=== PATIENT | male | born 1955 | race Caucasian/White ===

== ENCOUNTER → 2017-08-01 09:03 | Outpatient (CLI) | payer OTHER, SELFPAY ==
[2017-08-01 10:44] LABS: Anion Gap 10 (5-15); BUN 17 mg/dL (7-18); BUN/Creat Ratio 18.1 RATIO (10-20); Calcium,Total 9.6 mg/dL (8.5-10.1); Chloride 99 mmol/L (98-107); Cholesterol 224 mg/dL (200); Creatinine, Serum 0.94 mg/dL (0.70-1.30); EST Glomerular Filtration Rate 86 mL/min (>60); Est Glom Filt Rate - Afr Amer 104 mL/min (>60); Glucose 124 mg/dL (74-106); High Density Lipoprotein 38 mg/dL; PSA,Total - Annual Screen 0.18 ng/mL (0.00-4.00); Potassium 4.4 mmol/L (3.5-5.1); Sodium Level 137 mmol/L (136-145); Triglycerides 193 mg/dL; Very Low Density Lipoprotein 39 mg/dL (5-40)
== END ==
PROVIDERS: Family Provider Family Medicine; PCP Family Medicine; Visit Provider Family Medicine
DX: I10 Essential (primary) hypertension (principal); R73.01 Impaired fasting glucose; E78.5 Hyperlipidemia, unspecified; Z12.5 Encounter for screening for malignant neoplasm of prostate
CPT/HCPCS: 36415; 80048; 80061; 83036; 84153; G0103

== ENCOUNTER → 2018-01-30 09:29 | Outpatient (CLI) | payer OTHER, SELFPAY ==
[2018-01-30 12:36] LABS: Cholesterol 203 mg/dL (200); Glucose 109 mg/dL (74-106); High Density Lipoprotein 34 mg/dL; Triglycerides 238 mg/dL; Very Low Density Lipoprotein 48 mg/dL (5-40)
[2018-01-30 12:38] LABS: Hemoglobin A1c 5.8 % (4.2-6.3)
== END ==
PROVIDERS: Family Provider Family Medicine; PCP Family Medicine; Visit Provider Family Medicine
DX: E78.5 Hyperlipidemia, unspecified (principal); R73.01 Impaired fasting glucose
CPT/HCPCS: 36415; 80061; 82947; 83036

== ENCOUNTER → 2019-03-13 | Outpatient (CLI) | payer MEDICARE, OTHER, SELFPAY ==
[2019-03-13 16:02] LABS: Absolute Lymphocyte Count 1.56 X10^3/uL (0.83-4.51); Basophil# 0.06 X10^3/uL; Basophil% 0.7 % (0-1); Eosinophil# 0.09 X10^3/uL; Eosinophils% 1.1 % (0-5); Hematocrit 47.6 % (40-54); Hemoglobin 15.6 g/dL (13.0-16.5); Lymphocyte # 1.56 X10^3/ul (4.0); Lymphocyte % 18.8 % (19-41); Mean Corp Hgb Conc 32.8 g/dL (32-36); Mean Corpuscular Hgb 30.9 pg (27.0-32.0); Mean Corpuscular Volume 94.3 fL (80-94); Mean Platelet Vol. 11.2 fl (6.2-12.0); Monocyte% 7.2 % (0-10); NRBC Flagged by Analyzer 0 % (0-5); Neutrophil # 5.98 X10^3/uL (2.7-7.7); Neutrophil % 71.8 % (47-70); Platelet Count 218 K/mm3 (150-450); RBC Distribution Width SD 44.7 fl (35.1-43.9); Red Blood Count 5.05 M/mm3 (4.6-6.2); White Blood Count 8.3 K/mm3 (4.4-11.0)
[2019-03-13 16:13] LABS: Albumin, Serum 4.1 g/dL (3.2-5.0); BUN 23 mg/dL (7-18); BUN/Creat Ratio 23.6 RATIO (10-20); Creatinine, Serum 0.97 mg/dL (0.70-1.30); EST Glomerular Filtration Rate 82 mL/min (>60); Est Glom Filt Rate - Afr Amer 99 mL/min (>60); Glucose 107 mg/dL (74-106)
[2019-03-13 16:14] LABS: ALB/GLOB Ratio 1.1 RATIO (0.9-2.4); AST(SGOT) 52 U/L (15-37); Alanine Aminotransfer ALT/SGPT 59 U/L (16-61); Alkaline Phosphatase 110 U/L (45-117); Anion Gap 8 (5-15); Calcium,Total 9.4 mg/dL (8.5-10.1); Chloride 101 mmol/L (98-107); Cholesterol 215 mg/dL (200); Globulin 3.9 g/dL (2.2-4.2); High Density Lipoprotein 39 mg/dL; Potassium 4.4 mmol/L (3.5-5.1); Sodium Level 139 mmol/L (136-145); Thyroid Stim Hormone (TSH) 2.97 uIU/mL (0.358-3.74); Triglycerides 174 mg/dL; Very Low Density Lipoprotein 35 mg/dL (5-40)
== END | disposition home or self-care (01) ==
LOC: MFPLAB 11:22
PROVIDERS: Family Provider Family Medicine; PCP Family Medicine; Referring Provider Family Medicine; Visit Provider Family Medicine
DX: I10 Essential (primary) hypertension (principal); R73.01 Impaired fasting glucose; I48.91 Unspecified atrial fibrillation
CPT/HCPCS: 36415; 80053; 80061; 84443; 85025

== ENCOUNTER → 2019-04-30 | Outpatient (CLI) | payer MEDICARE, OTHER, SELFPAY ==
--- NOTE | 2019-04-30 13:55 | ECHOCS_ITS ---
Version 2 Reason For Study: Afib Left Ventricle Normal LV size. Moderate concentric left ventricular hypertrophy. Left ventricular systolic function is normal. The estimated ejection fraction is 60 %. Unable to assess diastolic dysfunction due to arrhythmia. No regional wall motion abnormalities noted. Right Ventricle Normal RV size. Normal systolic function. Atria The left atrium is mildly enlarged. Normal right atrium. Mitral Valve Mitral valve not well visualized. Tricuspid Valve Normal tricuspid valve. Aortic Valve The aortic valve is not well visualized. Peak aortic valve gradient 64 mmHg. Mean aortic valve gradient 35.5 mmHg. Calculated aortic valve area (continuity equation) is 0.96 cm2. Moderate aortic stenosis. Pulmonic Valve The pulmonic valve is not well visualized. Great Vessels Normal aortic root. The pulmonary artery is normal size. Normal inferior vena cava. Pericardium/Pleural No pericardial effusion. MMode/2D Measurements & Calculations LVIDd: 4.4 cm IVSd: 1.7 cm LVOT diam: 2.2 cm LVIDs: 2.8 cm LVPWd: 1.5 cm LVOT area: 3.8 cm2 FS: 36.6 % Ao root diam: 3.3 cm LAV(MOD-bp): 66.4 ml LVAd ap4: 30.0 cm2 LAV(MOD-bp) Indexed: 25.8 ml/m2 EDV(MOD-sp4): 98.6 ml LAV(MOD-sp2): 58.7 ml EDV(sp4-el): 103.2 ml LAV(MOD-sp4): 72.8 ml LVAs ap4: 19.1 cm2 ESV(MOD-sp4): 44.2 ml ESV(sp4-el): 45.8 ml EF(MOD-sp4): 55.1 % EF(sp4-el): 55.6 % SV(MOD-sp4): 54.3 ml SV(sp4-el): 57.4 ml Aortic Valve Planimetry: 0.96 cm2 LA A4 area: 23.6 cm2 LA dimension(2D): 6.5 cm RA A4 area: 16.4 cm2 Doppler Measurements & Calculations MV E max deidra: 79.9 cm/sec Ao V2 max: 396.8 cm/sec LV V1 max: 88.5 cm/sec Ao max P.4 mmHg LV V1 max P.1 mmHg Ao V2 mean: 282.0 cm/sec LV V1 mean P.9 mmHg Ao mean P.5 mmHg LV V1 mean: 66.6 cm/sec Ao V2 VTI: 65.9 cm LV V1 VTI: 17.8 cm JOSH(I,D): 1.0 cm2 JOSH(V,D): 0.84 cm2 SV(LVOT): 67.1 ml PA V2 max: 175.5 cm/sec PA V2 mean: 111.0 cm/sec PA V2 VTI: 27.3 cm Interpretation Summary Normal LV size. Left ventricular systolic function is normal. The estimated ejection fraction is 60 %. Moderate concentric left ventricular hypertrophy. Unable to assess diastolic dysfunction due to arrhythmia. Moderate aortic stenosis. Mean aortic valve gradient 35.5 mmHg. Contrast injection was performed. Ordering Physician: James Hernandez Referring Physician: James Hernandez Performed By: Katlin Forrest RDCS, RVT
== END | disposition home or self-care (01) ==
LOC: CVS 13:54
PROVIDERS: Family Provider Family Medicine; PCP Family Medicine; Referring Provider Family Medicine; Visit Provider Family Medicine
DX: I48.20 Chronic atrial fibrillation, unspecified (principal)
CPT/HCPCS: 93306; Q9957; A4216; C8929

== ENCOUNTER → 2019-05-16 15:01 | Outpatient (CLI) | payer MEDICARE, OTHER, SELFPAY ==
[2019-05-16 14:11] VITALS: BMI 42.3
[2019-05-16 16:41] LABS: Anion Gap 6 (5-15); BUN 19 mg/dL (7-18); Calcium,Total 9.5 mg/dL (8.5-10.1); Chloride 100 mmol/L (98-107); Creatinine, Serum 0.95 mg/dL (0.70-1.30); EST Glomerular Filtration Rate 85 mL/min (>60); Est Glom Filt Rate - Afr Amer 102 mL/min (>60); Glucose 97 mg/dL (74-106); Sodium Level 137 mmol/L (136-145)
== END ==
PROVIDERS: Family Provider Family Medicine; PCP Family Medicine; Referring Provider Internal Medicine Cardiovascular Disease; Visit Provider Internal Medicine Cardiovascular Disease
DX: I48.91 Unspecified atrial fibrillation (principal)
CPT/HCPCS: 36415; 80048

== ENCOUNTER 2019-05-21 11:29 | Day surgery (SDC) | payer MEDICARE, OTHER, SELFPAY ==
[2019-05-16 14:11] VITALS: BMI 42.3
[2019-05-18 11:09] VITALS: BMI 42.3
--- NOTE | 2019-05-21 13:03 | PCM.OP.PRO ---
Problem List (1) Essential (primary) hypertension Status: Chronic (2) History of hyperlipidemia Status: Chronic (3) New onset atrial fibrillation Status: Chronic (4) Nonrheumatic aortic (valve) stenosis Status: Chronic Procedure Report Date of Procedure: 05/21/19 - Conscious sedation CONSCIOUS SEDATION REPORT BRIEF HISTORY OF PRESENT ILLNESS: The patient is a 64-year-old male who presented to [facility] for an elective outpatient cardioversion due to underlying atrial fibrillation. The patient reports no PO intake since midnight. The patient does have a history of obstructive sleep apnea. The patient reports no history of smoking and COPD. The patient denies any recent constitutional symptoms such as fevers, chills, nausea or vomiting. The patient denies previous anesthetic complications. Patient's last known ejection fraction was 60% and patient is anticoagulated with Eliquis therapy. PHYSICAL EXAMINATION: VITAL SIGNS: Reviewed and were acceptable. GENERAL: The patient is a male, in no apparent distress, speaking in full sentences. HEENT: Normocephalic, atraumatic. Mucous membranes are moist and pink. Good mouth opening noted. Trachea is midline. Good neck mobility. MP IV CHEST: S1, S2 irregularly irregular. No rubs or gallops were noted. Grade 3 out of 6 systolic ejection murmur at the right sternal border LUNGS: Clear to auscultation bilaterally without appreciable wheezes, rales or rhonchi. ABDOMEN: Soft, nontender, nondistended. Positive bowel sounds. EXTREMITIES: There is no clubbing, cyanosis or edema. ASA Class: II DESCRIPTION OF PROCEDURE: After confirmation of informed consent, the patient's anesthesia plan was reviewed in detail. Propofol was chosen. Risks and benefits were reviewed and the patient agreed to proceed. At 12:42 PM, the patient was given 40 mg of propofol. The patient required a total of 100 mg of propofol throughout the procedure to achieve appropriate sedation. The patient achieved an appropriate level of sedation and received 3 attempt s synchronized cardioversion, at 200, 20o and [address] Srinivasan at the bedside. This was unsuccessful in achieving normal sinus rhythm. The patient was monitored until 12:55 PM, at which time the patient reached their baseline mental status and function. The patient tolerated the procedure well. COMPLICATIONS: None ESTIMATED BLOOD LOSS: None RECOMMENDATIONS: Okay to recover in usual fashion. Code Visit 9xxxx: Other Procedure See Report - [id number] -13 minutes
--- NOTE | 2019-05-21 13:14 | PRO.PCM_ITS ---
Procedure Report Date of Procedure: 05/21/19 DC cardioversion. 64-year-old man with a history of chronic persistent atrial fibrillation and aortic stenosis. Patient has been on anticoagulation for minimum of 3 weeks. Patient was brought in for elective DC cardioversion. Patient was seen by Dr. Chaves of the critical care division. Informed consent was obtained. Anterior- posterior pads were applied. 100 mg of intravenous propofol was then administered and the patient was initially cardioverted with 200 J of biphasic energy with brief reversal to sinus rhythm. Patient reverted back into atrial fibrillation and required another 200 J of biphasic DC cardioversion energy with no response. The patient was then cardioverted with 300 J of biphasic energy which was still unsuccessful in converting patient to sinus rhythm. Conclusion: Unsuccessful DC cardioversion to sinus rhythm. We will recommend amiodarone loading with 200 mg daily for 2 to 3 weeks and repeat DC cardioversion. Continue anticoagulation.
== END 2019-05-21 13:45 | disposition home or self-care (01) ==
LOC: CLSP 11:29
PROVIDERS: Family Provider Family Medicine; PCP Family Medicine; Referring Provider Internal Medicine Cardiovascular Disease; Visit Provider Internal Medicine Cardiovascular Disease
DX: I48.19 Other persistent atrial fibrillation (principal); G47.33 Obstructive sleep apnea (adult) (pediatric); I10 Essential (primary) hypertension; I35.0 Nonrheumatic aortic (valve) stenosis; J45.909 Unspecified asthma, uncomplicated; F41.9 Anxiety disorder, unspecified; Z79.01 Long term (current) use of anticoagulants; Z86.39 Personal history of other endocrine, nutritional and metabolic disease
CPT/HCPCS: 92960; 93005; J7040

== ENCOUNTER → 2019-06-04 11:49 | Outpatient (CLI) | payer MEDICARE, OTHER, SELFPAY ==
[2019-05-18 11:09] VITALS: BMI 42.3
[2019-06-04 12:48] LABS: Anion Gap 5 (5-15); BUN 17 mg/dL (7-18); Calcium,Total 9.2 mg/dL (8.5-10.1); Chloride 100 mmol/L (98-107); EST Glomerular Filtration Rate 80 mL/min (>60); Est Glom Filt Rate - Afr Amer 96 mL/min (>60); Glucose 107 mg/dL (74-106); Potassium 4.3 mmol/L (3.5-5.1); Sodium Level 139 mmol/L (136-145)
== END ==
PROVIDERS: Family Provider Family Medicine; PCP Family Medicine; Referring Provider Internal Medicine Cardiovascular Disease; Visit Provider Internal Medicine Cardiovascular Disease
DX: I48.91 Unspecified atrial fibrillation (principal)
CPT/HCPCS: 36415; 80048

== ENCOUNTER 2019-06-25 10:01 | Day surgery (SDC) | payer MEDICARE, OTHER, SELFPAY ==
[2019-05-18 11:09] VITALS: BMI 42.3
[2019-06-22 09:44] VITALS: BMI 42.3
--- NOTE | 2019-06-25 11:18 | CARDIOVERS ---
Cardioversion Cardioversion: 64-year-old man with a history of chronic persistent atrial fibrillation who was brought in for a DC cardioversion. After informed consent was obtained the patient was seen by Dr. Rutherford of the critical care division. Anterior-posterior pads were applied. EKG confirmed that the patient was in atrial fibrillation. 60 mg of intravenous propofol was then administered and 200 J of synchronized DC biphasic cardioversion energy were applied with prompt reversal to sinus rhythm. The patient tolerated the procedure well. Conclusion: Successful DC cardioversion to sinus rhythm. Continue current anticoagulation Continue antiarrhythmic.
--- NOTE | 2019-06-25 11:27 | PRO.PCM_ITS ---
Procedure Report Date of Procedure: 06/25/19 CONSCIOUS SEDATION REPORT DATE OF SERVICE: June 25, 2019 BRIEF HISTORY OF PRESENT ILLNESS: The patient is a 64-year-old male who presented to [facility] for an elective outpatient cardioversion due to underlying atrial fibrillation. The patient did undergo a previous cardioversion in May 2019, during which time, 100 mg of propofol was utilized to achieve an appropriate level of sedation. The patient is currently anticoagulated on Eliquis. His last known ejection fraction was approximately 60%. He does report a known history of obstructive sleep apnea, for which he utilizes nocturnal Pap therapy. He also reports a history of mild intermittent asthma. He denies any previous anesthetic complications. PHYSICAL EXAMINATION: VITAL SIGNS: Reviewed and were acceptable. GENERAL: The patient is an obese male, in no apparent distress, speaking in full sentences. HEENT: Normocephalic, atraumatic. Mucous membranes are moist and pink. Good mouth opening noted. Trachea is midline. Good neck mobility. CHEST: S1, S2 irregularly irregular. No murmurs, rubs or gallops were noted. LUNGS: Clear to auscultation bilaterally without appreciable wheezes, rales or rhonchi. ABDOMEN: Soft, nontender, nondistended. Positive bowel sounds. EXTREMITIES: There is no clubbing, cyanosis or edema. ASA Class: II DESCRIPTION OF PROCEDURE: After confirmation of informed consent, the patient's anesthesia plan was reviewed in detail. Propofol was chosen. Risks and benefits were reviewed and the patient agreed to proceed. At 1111, the patient was given 60 mg of propofol. The patient achieved an appropriate level of sedation and was given a 200 joule synchronized cardioversion by Dr. Srinivasan at the bedside. This was successful in achieving normal sinus rhythm. The patient was monitored until 1121, at which time he reached his baseline mental status and function. The patient tolerated the procedure well. COMPLICATIONS: None ESTIMATED BLOOD LOSS: None RECOMMENDATIONS: Okay to recover in usual fashion. Code Visit 9xxxx: Other Procedure See Report - [id number]
== END 2019-06-25 12:13 | disposition home or self-care (01) ==
PROVIDERS: Family Provider Family Medicine; PCP Family Medicine; Referring Provider Internal Medicine Cardiovascular Disease; Visit Provider Internal Medicine Cardiovascular Disease
DX: I48.91 Unspecified atrial fibrillation (principal); I35.0 Nonrheumatic aortic (valve) stenosis; G47.33 Obstructive sleep apnea (adult) (pediatric); J45.20 Mild intermittent asthma, uncomplicated; I10 Essential (primary) hypertension; E78.5 Hyperlipidemia, unspecified; E66.9 Obesity, unspecified; F41.9 Anxiety disorder, unspecified; Z79.01 Long term (current) use of anticoagulants; Z68.41 Body mass index [BMI] 40.0-44.9, adult
CPT/HCPCS: 92960; 93005; J7040

== ENCOUNTER → 2020-01-17 10:19 | Outpatient (CLI) | payer MEDICARE, OTHER, SELFPAY ==
[2019-11-21 09:31] VITALS: BMI 38.5
[2020-01-17 12:30] LABS: Absolute Lymphocyte Count 1.47 X10^3/uL (0.83-4.51); Absolute Neutrophil Count 4.8 X10^3/uL (2.0-7.7); Basophil# 0.04 X10^3/uL; Basophil% 0.6 % (0-1); Eosinophil# 0.15 X10^3/uL; Eosinophils% 2.1 % (0-5); Hematocrit 45.8 % (40-54); Hemoglobin 15.1 g/dL (13.0-16.5); Lymphocyte # 1.47 X10^3/ul (4.0); Lymphocyte % 20.9 % (19-41); Mean Corpuscular Hgb 31.6 pg (27.0-32.0); Mean Corpuscular Volume 95.8 fL (80-94); Mean Platelet Vol. 10.6 fl (6.2-12.0); Monocyte# 0.53 X10^3/uL; Monocyte% 7.5 % (0-10); NRBC Flagged by Analyzer 0 % (0-5); Neutrophil % 68.3 % (47-70); Platelet Count 186 K/mm3 (150-450); RBC Distribution Width CV 13.3 % (11.6-14.6); RBC Distribution Width SD 46.9 fl (35.1-43.9); Red Blood Count 4.78 M/mm3 (4.6-6.2)
[2020-01-17 12:57] LABS: Hemoglobin A1c 5.7 % (3.8-5.6)
[2020-01-17 12:58] LABS: Vitamin B12 291 pg/mL (211-911); Vitamin D,25 Hydroxy 28.8 ng/mL
[2020-01-17 13:08] LABS: ALB/GLOB Ratio 0.9 RATIO (0.9-2.4); AST(SGOT) 44 U/L (15-37); Alanine Aminotransfer ALT/SGPT 61 U/L (16-61); Albumin, Serum 3.7 g/dL (3.2-5.0); Alkaline Phosphatase 126 U/L (45-117); Anion Gap 6 (5-15); BUN 21 mg/dL (7-18); Chloride 102 mmol/L (98-107); Cholesterol 212 mg/dL (200); Creatinine, Serum 1.05 mg/dL (0.70-1.30); EST Glomerular Filtration Rate 75 mL/min (>60); Est Glom Filt Rate - Afr Amer 91 mL/min (>60); Globulin 3.9 g/dL (2.2-4.2); Glucose 101 mg/dL (74-106); High Density Lipoprotein 38 mg/dL; Potassium 4.7 mmol/L (3.5-5.1); Protein, Total 7.6 g/dL (6.4-8.2); Sodium Level 138 mmol/L (136-145); Triglycerides 183 mg/dL; Very Low Density Lipoprotein 37 mg/dL (5-40)
== END ==
PROVIDERS: PCP Family Medicine; Referring Provider Family Medicine; Visit Provider Family Medicine
DX: I10 Essential (primary) hypertension (principal); I48.91 Unspecified atrial fibrillation; R53.83 Other fatigue; R73.01 Impaired fasting glucose; E55.9 Vitamin D deficiency, unspecified
CPT/HCPCS: 36415; 80053; 80061; 82306; 82607; 83036; 85025

== ENCOUNTER → 2020-01-29 10:47 | Outpatient (CLI) | payer MEDICARE, OTHER, SELFPAY ==
[2019-11-21 09:31] VITALS: BMI 38.5
== END ==
PROVIDERS: PCP Family Medicine; Referring Provider Internal Medicine Cardiovascular Disease; Visit Provider Internal Medicine Cardiovascular Disease
DX: R00.0 Tachycardia, unspecified (principal); I48.19 Other persistent atrial fibrillation
CPT/HCPCS: 93225; 93226

== ENCOUNTER → 2020-02-21 06:06 | Outpatient (CLI) | payer MEDICARE, OTHER, SELFPAY ==
[2019-11-21 09:31] VITALS: BMI 38.5
--- NOTE | 2020-02-21 09:08 | STRESSREP ---
Stress Test Report Pharmacologic myocardial perfusion stress test. 64-year-old man with a history of atrial fibrillation and hypertension. Stress protocol: Resting KG demonstrates atrial fibrillation with a rate of 78 bpm normal intervals are noted resting blood pressure is 122/80 mmHg. 0.4 mg of regadenoson was infused per usual protocol followed by rapid intravenous saline flush injection continuous EKG monitoring was performed. The patient maintained atrial fibrillation throughout the recording. The maximum heart rate attained was 113 bpm which was 72% of maximum predicted heart rate and a workload of 1 metabolic equivalent. At rest nonspecific ST-T wave changes were noted and at peak infusion nonspecific ST-T wave changes were noted. The maximum blood pressure was 122/80 mmHg. Myocardial perfusion protocol. 14.9 mCi of technetium 99m sestamibi was injected at rest. 0.4 mg of regadenoson was infused per usual protocol. At peak infusion 44.8 mCi of technetium 99m sestamibi was injected stress images were obtained stress and rest images were reconstructed and compared in the short axis vertical long horizontal long axis. Gated images were also obtained P Perfusion SPECT analysis: Review of the stress images demonstrate normal uptake of tracer noted in all areas of the myocardium the resting images similarly demonstrate normal uptake of tracer noted in all areas of the myocardium. No areas of reversibility are noted to suggest ischemia. Gated SPECT analysis: The gated ejection fraction is noted to be 62%. Conclusion: Normal pharmacologic myocardial perfusion stress test. Atrial fibrillation noted. Preserved ejection fraction.
== END ==
PROVIDERS: PCP Family Medicine; Referring Provider Internal Medicine Cardiovascular Disease; Visit Provider Internal Medicine Cardiovascular Disease
DX: R07.9 Chest pain, unspecified (principal)
CPT/HCPCS: 78452; 93017; A9500; A4216; J2785

== ENCOUNTER → 2020-05-19 10:57 | Outpatient (CLI) | payer MEDICARE, OTHER, SELFPAY ==
[2019-11-21 09:31] VITALS: BMI 38.5
[2020-05-19 12:45] LABS: PSA,Total - Annual Screen 0.16 ng/mL (0.00-4.00)
== END ==
PROVIDERS: PCP Family Medicine; Referring Provider Family Medicine; Visit Provider Family Medicine
DX: Z12.5 Encounter for screening for malignant neoplasm of prostate (principal)
CPT/HCPCS: 36415; 84153; G0103

== ENCOUNTER → 2020-09-12 07:55 | Outpatient (CLI) | payer MEDICARE, OTHER, SELFPAY ==
[2020-05-20 09:40] VITALS: BMI 39.3
--- NOTE | 2020-09-12 08:00 | ECHOCS_ITS ---
Reason For Study: AORTIC STENOSIS Procedure This was a 2D Doppler, Color Flow transthoracic echocardiogram. The study was technically difficult. Contrast injection was performed. Exam performed in department. Left Ventricle Normal LV size. Mild concentric left ventricular hypertrophy. Left ventricular systolic function is normal. The estimated ejection fraction is 60 %. Unable to assess diastolic dysfunction due to arrhythmia. No regional wall motion abnormalities noted. Right Ventricle Normal RV size. Normal systolic function. Atria Normal left atrium. Normal right atrium. Mitral Valve Normal mitral valve. Tricuspid Valve Normal tricuspid valve. Mild (1+) tricuspid valve insufficiency. Pulmonary artery systolic pressure is 40 mmHg. Aortic Valve Trisinus/trileaflet aortic valve. Mild focal aortic valve calcification. Peak aortic valve gradient 77 mmHg. Mean aortic valve gradient 51 mmHg. Severe aortic stenosis. Pulmonic Valve Normal pulmonic valve. Great Vessels Mildly dilated aortic root. The pulmonary artery is normal size. Normal inferior vena cava. Pericardium/Pleural No pericardial effusion. Medication 22 gauge I.V. with prn adaptor inserted into right arm. Diluted definity 4.0ml given slow IV push to enhance endocardial definition. MMode/2D Measurements & Calculations LVIDd: 5.1 cm IVSd: 1.2 cm LVOT diam: 2.2 cm LVIDs: 3.5 cm LVPWd: 1.2 cm RVDd: 3.5 cm FS: 32.2 % LVOT area: 3.8 cm2 Ao root diam: 4.0 cm LAV(MOD-bp): 67.4 ml LA dimension(2D): 5.6 cm LAV(MOD-bp) Indexed: 27.0 ml/m2 LAV(MOD-sp2): 70.1 ml LAV(MOD-sp4): 64.8 ml RA A4 area: 20.9 cm2 Time Measurements MV dec time: 0.17 sec Doppler Measurements & Calculations MV E max marco: 108.1 cm/sec Lat Peak E' Marco: 11.4 cm/sec Med Peak E' Marco: 6.1 cm/sec E/E' lat: 9.5 E/E' med: 17.8 Ao V2 max: 437.6 cm/sec LV V1 max: 81.3 cm/sec SV(LVOT): 81.2 ml Ao max P.8 mmHg LV V1 max P.6 mmHg Ao V2 mean: 347.7 cm/sec LV V1 mean P.7 mmHg Ao mean P.5 mmHg LV V1 mean: 62.2 cm/sec Ao V2 VTI: 103.4 cm LV V1 VTI: 21.1 cm JOSH(I,D): 0.79 cm2 JOSH(V,D): 0.71 cm2 PA V2 max: 171.9 cm/sec TR max marco: 302.6 cm/sec PA max PG (full): 8.9 mmHg TR max P.6 mmHg PA V2 mean: 115.7 cm/sec PA mean PG (full): 4.6 mmHg PA V2 VTI: 30.2 cm ECHO/Echo Complete W/ Contrast Interpretation Summary Normal LV size. Left ventricular systolic function is normal. The estimated ejection fraction is 60 %. Mild focal aortic valve calcification. Mild concentric left ventricular hypertrophy. Mean aortic valve gradient 51 mmHg. Severe aortic stenosis. Pulmonary artery systolic pressure is 40 mmHg. Unable to assess diastolic dysfunction due to arrhythmia. Contrast injection was performed. Ordering Physician: Chandra Forrest Referring Physician: CHANDRA BETHEA Performed By: Diandra Espino, FARAZ, RVT
== END ==
PROVIDERS: PCP Family Medicine; Referring Provider Nurse Practitioner Family; Visit Provider Nurse Practitioner Family
DX: I48.19 Other persistent atrial fibrillation (principal); I35.0 Nonrheumatic aortic (valve) stenosis; I10 Essential (primary) hypertension; E78.5 Hyperlipidemia, unspecified
CPT/HCPCS: 93306; Q9957; A4216; C8929

== ENCOUNTER 2020-09-24 07:03 | Day surgery (SDC) | payer MEDICARE, OTHER, SELFPAY ==
[2020-05-20 09:40] VITALS: BMI 39.3
--- NOTE | 2020-09-22 08:04 | RAD_ITS ---
STUDY: X-RAY CHEST REASON FOR EXAM: Male, 65 years old. dyspnea TECHNIQUE: PA and lateral views of the chest. COMPARISON: None. FINDINGS: The lungs are clear and expanded. There is no demonstrated pleural abnormality. Normal size heart. Normal mediastinum and mason. Normal visualized pulmonary arteries. Normal visualized aortic arch and descending thoracic aorta. Normal visualized thoracic spine. Normal visualized ribs, clavicles, and shoulders. There is no demonstrated abnormality of the visualized soft tissue structures of the upper abdomen. RAD/Chest PA and Lateral IMPRESSION: Normal x-ray examination of the chest. Electronically Signed: Mike Ordonez MD at 16:56 EDT Tel , Service support ,
[2020-09-22 08:53] LABS: Absolute Lymphocyte Count 1.51 X10^3/uL (0.83-4.51); Basophil# 0.05 X10^3/uL; Basophil% 0.7 % (0-1); Eosinophil# 0.14 X10^3/uL; Eosinophils% 1.9 % (0-5); Hematocrit 46.7 % (40-54); Hemoglobin 15.1 g/dL (13.0-16.5); Lymphocyte # 1.51 X10^3/ul (4.0); Lymphocyte % 20.6 % (19-41); Mean Corp Hgb Conc 32.3 g/dL (32-36); Mean Corpuscular Hgb 30.6 pg (27.0-32.0); Mean Corpuscular Volume 94.7 fL (80-94); Mean Platelet Vol. 10.4 fl (6.2-12.0); Monocyte# 0.61 X10^3/uL; Monocyte% 8.3 % (0-10); NRBC Flagged by Analyzer 0 % (0-5); Neutrophil # 4.99 X10^3/uL (2.7-7.7); Neutrophil % 68.2 % (47-70); Platelet Count 178 K/mm3 (150-450); RBC Distribution Width CV 12.8 % (11.6-14.6); RBC Distribution Width SD 44.4 fl (35.1-43.9); Red Blood Count 4.93 M/mm3 (4.6-6.2); White Blood Count 7.3 K/mm3 (4.4-11.0)
[2020-09-22 09:26] LABS: Anion Gap 3 (5-15); BUN 24 mg/dL (7-18); BUN/Creat Ratio 23.5 RATIO (10-20); Chloride 102 mmol/L (98-107); Creatinine, Serum 1.02 mg/dL (0.70-1.30); EST Glomerular Filtration Rate 78 mL/min (>60); Est Glom Filt Rate - Afr Amer 94 mL/min (>60); Glucose 116 mg/dL (74-106); Potassium 3.9 mmol/L (3.5-5.1); Sodium Level 136 mmol/L (136-145)
[2020-09-24 06:54] VITALS: BMI 39.3
--- NOTE | 2020-09-24 08:08 | PCM.HP.BLA ---
History and Physical Date of Admission: 09/24/20 [facility] History of Present Illness Details: This is a pleasant 65-year-old man with a history of atrial fibrillation which appears to be persistent. It was diagnosed in March 2019. He also has a history of hypertension, obesity, RITESH with CPAP therapy, and hyperlipidemia. He had been getting short of breath. He was evaluated with an echocardiogram was noted to have moderately severe aortic stenosis. In June 2019, he underwent DC cardioversion and it does not appear that this has been successful. As part of ongoing evaluation of his aortic valve he underwent an echocardiogram on 09/12/2020 that showed ejection fraction of 60%, mild concentric LVH, severe aortic valve stenosis with a peak aortic valve gradient of 77 mmHg and mean aortic valve gradient of 51 mmHg. His aortic valve area was 0.79 cm?. He presents today to [facility] for heart catheterization to assess coronary artery anatomy to further guide valvular treatment. He denies chest, arm, jaw, or neck discomfort. His exercise tolerance is stable. He denies symptoms of palpitations, lightheadedness, dizziness, near syncope, or syncopal episodes. He denies edema or claudication issues. He denies orthopnea, PND, blood in urine, blood in stool, epistaxis, myalgia, or unexplainable fatigue. He continues with SOB. This is most noted with activity such as a brisk walk. This improves with rest. He denies such SOB with ADLs. Intake Vital Signs: See EMR Intake Visit Reasons: [facility] [employer] Required: No Accompanied by: None Is patient in pain?: No Allergies No Known Allergies Allergy (Verified 05/20/20 09:38) Medications See EMR [facility] Medical History (Updated 05/20/20 @ 10:11 by James Forrest [employer], [employer]) Persistent atrial fibrillation (Chronic) Nonrheumatic aortic (valve) stenosis (Chronic) Essential (primary) hypertension (Chronic) Hyperlipidemia (Chronic) Anxiety (Chronic) Asthma (Chronic) Obesity (Chronic) Obstructive sleep apnea (Chronic) New onset atrial fibrillation (Inactive 03/2019) Paroxysmal atrial fibrillation (Inactive) Surgical History History of appendectomy (Resolved) History of cardioversion (Resolved 06/25/19) History of herniorrhaphy (Resolved) History of tonsillectomy (Resolved) Family History Sister Cancer pancreatic Father Cancer prostate Mother Heart disease CHF COPD (chronic obstructive pulmonary disease) Social History (Updated 05/20/20 @ 10:20 by James Forrest NP, [employer]) Smoking Status: Never smoker ROS Const Const: Negative for fatigue, weakness, body ache, fever(s) or chills ENT ENT: Negative for dizziness Cardio Chest Pain: No Palpitations: No Edema: None Muscle aches with walking: None Resp Respiratory: Positive for SOB with activity; negative for SOB at rest, SOB orthopnea\SOB lying down or paroxysmal nocturnal dyspnea GI GI: Negative nausea, vomiting blood/hematemesis, bright, red blood in stools or black,tarry stools : Negative for hematuria or frequent nighttime urination/ nocturia Musc Musc: Negative for muscle aches/ myalgia Skin Skin: Negative non-healing lesions or rash Neuro Neuro: Negative for dizziness, lightheadedness, near syncope, syncope, orthostatic symptoms or weakness Endo Endo: Negative for fatigue Allergy Allergy/Immunology: Negative for rash Cardiology Exam Const Appearance: cooperative, healthy appearing, comfortable and no acute distress Nutritional Appearance: well nourished and obese Orientation: alert, awake and oriented x3 Head Head: normal to inspection Ears: hearing grossly normal bilaterally Nose: external nose normal Face and Sinus: face symmetric Mouth: oral mucosae normal Eyes General: appearance normal, both eyes and all related structures Eyelids: eyelids normal EOM: EOM intact bilaterally Neck Neck: normal visual inspection and no JVD Carotids: normal carotid upstroke Chest Chest inspection: normal inspection of the chest, symmetric chest movement and normal respiratory effort; negative cough Auscultation: Bilateral: Clear to Auscultation Cardio Rate: regular rate Rhythm: regular rhythm Heart sounds: S1 normal, S2 normal and murmur; negative rub or gallop Murmur: Grade 2/6, soft and RLSB GI GI: normal to inspection and obese Neuro General: alert, awake, oriented x3 and CN's II-XI intact bilaterally Skin Skin: no rashes or lesions noted Extremities Pulses: Normal: Right Posterior Tibial Pulse, Left Posterior Tibial Pulse, Right Radial Pulse, Left Radial Pulse Lower Extremity Edema: None: Bilateral Psych Psychological: normal affect Assessment & Plan 1. Persistent atrial fibrillation I48.19 DCCV 05/2019, 06/2019 Plan His heart rate is well controlled. This appears stable. He will continue with metoprolol succinate for rate control and Eliquis therapy for CVA protection. 2. Nonrheumatic aortic (valve) stenosis I35.0 Plan Patient does acknowledge shortness of breath based on rate of walking. 3. Essential hypertension I10 Plan Patient's blood pressure is well-controlled. We will continue to monitor. We will not make any medication regimen changes. His echocardiogram is as noted above. He will proceed with heart catheterization to help assess coronary anatomy to further guide treatment. 4. Hyperlipidemia, unspecified hyperlipidemia type E78.5 Plan His most recent lipid panel from January 2020 showed total cholesterol: 212, HDL: 38, LDL: 137, and triglycerides: 183. It was recommended to begin cholesterol-lowering medication such as a statin medication but however, he wishes to pursue natural methods first. Recommendations cards to exercise and diet were reviewed with him. Based on long-term results, further recommendation medication suggestions will be made. He was also asked to continue to discuss this with primary care physician. Plan Detail Additional Comments Thank you for allowing us to participate in the patients plan of care, if you have any questions please do not hesitate to call. This note was generated using a voice recognition system and there may be incorrect words, spelling or punctuation that were not noted when reviewing the office note prior to saving. Supplemental Info Supplemental Information Stress test from 02/21/2020: Conclusion: Normal pharmacologic myocardial perfusion stress test. Atrial fibrillation noted. Preserved ejection fraction. 24-hour Holter monitor from 01/29/2020: Average heart 77 bpm. Minimum heart rate 44 beats minute. Maximum heart rate 126 bpm. Ventricular ectopy at 0.1%. Supraventricular ectopy at 0.0% Atrial fibrillation 9.9%. Longest R-R interval 2.1 seconds. No ventricular tachycardia. The patient kept a 24-hour diary. No activity or symptoms recorded. Echocardiogram from 09/12/2020: Interpretation Summary Normal LV size. Left ventricular systolic function is normal. The estimated ejection fraction is 60 %. Mild focal aortic valve calcification. Mild concentric left ventricular hypertrophy. Mean aortic valve gradient 51 mmHg. Severe aortic stenosis. Pulmonary artery systolic pressure is 40 mmHg. Unable to assess diastolic dysfunction due to arrhythmia. Contrast injection was performed. Echocardiogram from 04/30/2019: Interpretation Summary Normal LV size. Left ventricular systolic function is normal. The estimated ejection fraction is 60 %. Moderate concentric left ventricular hypertrophy. Unable to assess diastolic dysfunction due to arrhythmia. Moderate aortic stenosis. Mean aortic valve gradient 35.5 mmHg. Contrast injection was performed. Peak aortic valve gradient 64 mmHg. Calculated aortic valve area is 0.96 cm? Procedure Criteria Procedure Type: Elective COVID Risk Discussion: The surgeon/proceduralist and patient have discussed in detail the risk of exposure to and/or potential harm posed by the COVID-19 virus with having a surgery/procedure at this time versus the risk of delaying the surgery/procedure. It is not possible to know either the risk of delaying the surgery or procedure or chance of getting an infection with perfect accuracy, but a joint decision was made between the patient and the surgeon/proceduralist to proceed at this time with the scheduled surgery/procedure as indicated on the consent form.
--- NOTE | 2020-09-24 08:39 | CL.D_ITS ---
Patient Name: CASEY SOSA Study Date: 09/24/2020 Performing: Dmitri Srinivasan MD Ht: 72.04 inches 183 cm : 1955 Wt: 291.01 lbs 132 kg Age: 65 Gender: male BSA: 2.5 PROCEDURE(S) PERFORMED TR78-[facility]/COR/LV CLINICAL PROFILE AND INDICATIONS Indications: Valvular Disease Heart Failure: None Stress/Imaging Stress/Image Study Performed: No CAD Presentations: No Sxs, no angina. CONCLUSIONS Mild nonobstructive coronary artery disease. RECOMMENDATIONS Refer for TAVR DESCRIPTION OF PROCEDURE The patient arrived to the procedure lab. The risks and benefits of the procedure as well as a full d escription of our services here and current unavailability of surgical backup were fully explained to the patient and/or their significant other prior to the catheterization. The Timeout was completed, verifying the correct patient and procedure. The patient's procedural site was prepped and draped in the usual fashion. Local anesthetic was given subcutaneously to right radial region with Lidocaine 2% . Using a modified Seldinger technique, arterial access was obtained via the right radial artery, a 6 Fr sheath was inserted. Left Coronary Artery selective angiography was performed in multiple views u sing a 5 Fr. 4.0 Unity catheter. Left Ventriculography was performed in ENGL[place] projection using a 5 Fr. Pigtail catheter. LV to AO pullback pressures were then recorded.The arterial sheath was pulled and a TR Band was applied for hemostasis CORONARY ANGIOGRAPHY DOMINANCE: Right Dominant LEFT HEART ASSESSMENT Left Ventricular Ejection Fraction: by LV Gram 60 % Normal LV wall motion Normal Left Ventricular systolic function Aortic Valve Mean Gradient: 42.1 LEFT MAIN: Angiographically normal LEFT ANTERIOR DESCENDING ARTERY: Mild luminal irregularities CIRCUMFLEX ARTERY: MID CIRC: Moderate luminal irregularities up to 50% RIGHT CORONARY ARTERY: Mild luminal irregularities VALVE FINDINGS: Aortic Valve Calcification - mild Aortic Valve Stenosis - severe COMPLICATIONS No Complications PROCEDURE MEDICATIONS Versed 1 mg IV Dilaudid 50 mg IV Oxygen: 2 L/min via nasal cannula Heparin given IA 09/24/2020 08:08:15 Verapamil 2.5mg, Ntg 100mcgs, 2000 units of Heparin given IA 09/24/2020 08:08:15 SUMMARY OF HEMODYNAMIC DATA Time AIR REST ECG 07:20:07 AO 100/77 (88) SA 08:15:16 LV 165/13, 18 08:21:18 LV 166/12, 20 08:21:34 LV 162/19, 22 08:22:09 LV 145/17, 19 08:22:15 LVp 168/15, 22 08:22:38 AOp 116/77 (94) 08:22:44 Valve Area (c P-P/ms Time AIR REST Aortic 0.00 42.1 mn/290 ms52.0 pk/290 ms 08:22:38 Signed By Dmitri Srinivasan MD On 09/24/2020 08:39:04 Dmitri Srinivasan MD
== END 2020-09-24 10:10 | disposition home or self-care (01) ==
LOC: CLSP 10:27
PROVIDERS: PCP Family Medicine; Referring Provider Internal Medicine Cardiovascular Disease; Visit Provider Internal Medicine Cardiovascular Disease
DX: I25.10 Atherosclerotic heart disease of native coronary artery without angina pectoris (principal); I10 Essential (primary) hypertension; J45.909 Unspecified asthma, uncomplicated; I48.19 Other persistent atrial fibrillation; I35.0 Nonrheumatic aortic (valve) stenosis; E78.5 Hyperlipidemia, unspecified; F41.9 Anxiety disorder, unspecified; G47.33 Obstructive sleep apnea (adult) (pediatric); E66.9 Obesity, unspecified; Z79.899 Other long term (current) drug therapy; Z79.82 Long term (current) use of aspirin
CPT/HCPCS: 36415; 71046; 80048; 85025; 93458; 99152; 99153; J7040; Q9967; C1769; C1894

== ENCOUNTER → 2020-10-14 08:28 | Outpatient (CLI) | payer MEDICARE, OTHER, SELFPAY ==
[2020-09-24 06:54] VITALS: BMI 39.3
[2020-10-14 10:28] LABS: Anion Gap 6 (5-15); BUN 27 mg/dL (7-18); BUN/Creat Ratio 26.2 RATIO (10-20); Calcium,Total 8.9 mg/dL (8.5-10.1); Chloride 103 mmol/L (98-107); Creatinine, Serum 1.03 mg/dL (0.70-1.30); EST Glomerular Filtration Rate 77 mL/min (>60); Est Glom Filt Rate - Afr Amer 93 mL/min (>60); Glucose 114 mg/dL (74-106); Potassium 4.2 mmol/L (3.5-5.1); Sodium Level 138 mmol/L (136-145)
[2020-10-14 10:42] LABS: Cholesterol 223 mg/dL (200); High Density Lipoprotein 36 mg/dL; Triglycerides 268 mg/dL; Very Low Density Lipoprotein 54 mg/dL (5-40)
== END ==
PROVIDERS: PCP Family Medicine; Referring Provider Family Medicine
DX: E78.5 Hyperlipidemia, unspecified (principal); I35.0 Nonrheumatic aortic (valve) stenosis
CPT/HCPCS: 36415; 80048; 80061

== ENCOUNTER → 2020-11-17 12:19 | Outpatient (CLI) | payer MEDICARE, OTHER, SELFPAY ==
[2020-11-17 15:45] LABS: International Normalized Ratio 1.3; Prothrombin Time (Protime)PT. 15.6 SECONDS (11.7-14.9)
[2020-11-17 16:01] LABS: AST(SGOT) 72 U/L (15-37); Alanine Aminotransfer ALT/SGPT 78 U/L (16-61); Albumin, Serum 4.1 g/dL (3.2-5.0); Alkaline Phosphatase 123 U/L (45-117); Bilirubin, Direct 0.37 mg/dL (0.00-0.30); Protein, Total 8.1 g/dL (6.4-8.2)
[2020-11-19 05:07] LABS: HEPATITIS B SURFACE AG Negative (Negative); Hepatitis A AB, Total Negative (Negative); Hepatitis A IgM Antibody Negative (Negative); Hepatitis B Core AB IgM Negative (Negative); Hepatitis B Core Ab Total Negative (Negative); Hepatitis C Ab <0.1 s/co ratio (0.0-0.9)
[2020-11-19 13:05] LABS: Hep B Surface Antibodies Reactive (.)
== END ==
PROVIDERS: PCP Family Medicine; Visit Provider Family Medicine
DX: K74.60 Unspecified cirrhosis of liver (principal)
CPT/HCPCS: 36415; 80076; 85610; 86704; 86705; 86706; 86708; 86709; 86803; 87340

== ENCOUNTER → 2020-11-21 09:26 | Outpatient (CLI) | payer MEDICARE, OTHER, SELFPAY ==
--- NOTE | 2020-11-21 09:29 | US_ITS ---
STUDY: ABDOMINAL ULTRASOUND - RIGHT UPPER QUADRANT REASON FOR VISIT: Male, 65 years old Cirrhosis TECHNIQUE: Ultrasound evaluation of the right upper quadrant was performed with real-time and static long-scale imaging. TECHNICAL QUALITY: Limited. Examination limited due to obesity. COMPARISON: None. FINDINGS: Liver: The liver is enlarged and measures 22.5 cm. There is increased echogenicity consistent with fatty infiltration. The bile ducts are within normal limits. There is hepatic color flow. The direction of portal flow is hepatopetal. There is no demonstrated mass lesion. Gallbladder: Normal distended gallbladder. The gallbladder wall measures 3 mm. There is a negative sonographic Carlin''s sign. There is no pericholecystic fluid. There are multiple echogenic structures within the gallbladder, consistent with multiple gallstones. Common Bile Duct (C.B.D.): The common bile duct measures 4 mm. Pancreas: Normal size of the head, body and tail of the pancreas. There is increased echogenicity of the pancreas. There is no demonstrated pancreatic mass or cyst. Right Kidney: Normal size of the right kidney. The right kidney measures 11.1 cm x 5.2 cm x 4.7 cm. Normal renal cortex. The right cortex measures 1.3 cm. There is no demonstrated renal mass or cyst. There is no right hydronephrosis. US/Abdomen Limited IMPRESSION: Hepatomegaly with diffuse fatty infiltration of the liver. Multiple gallstones. Electronically Signed: James Landaverde MD at 11:14 EDT , Service support ,
== END ==
PROVIDERS: PCP Family Medicine; Referring Provider Family Medicine; Visit Provider Family Medicine
DX: K74.60 Unspecified cirrhosis of liver (principal)
CPT/HCPCS: 76705

== ENCOUNTER → 2020-12-04 06:53 | Outpatient (CLI) | payer MEDICARE, OTHER, SELFPAY ==
--- NOTE | 2020-12-04 07:00 | CR.ITP_ITS ---
Diagnosis - General Information Admitting Diagnosis: Aortic Valve Replacement Secondary Diagnosis: A-Fib, HTN, HLD, asthma, aortic stenosis Personal Learning Style:: Audio/Visual Barriers to Learning: Vision Impairment Stage of change r/t lifestyle modifications:: Action Gave educational material for:: Treating Heart Disease, Emotions & Heart Disease, Stress Management & Relaxation, Sleep Disorders & Heart Disease, How The Heart Works, What it means to have Heart Disease, How Coronary Artery Disease is Diagnosed, Heart Procedures, What Heart Medications Do, Risk Factors & Modifications, Living an Active Life, Nutrition - Education/Goals Individual Counseling: Initial Assessment: Abnormal Cholesterol Levels, High Blood Pressure, Overweight/Obesity Cardiac Rehabilitation Goals: 1. Maintain the individual as the primary focus of care. 2. To improve the patient's quality of life. 3. Identification of cardiac risk factors and provide cardiac risk factor management. 4. Enhance the psychosocial status of the patient. 5. Reconditioning enough to allow the patient to resume customary activities. 6. Control symptoms of cardiac disease Personal Goals: Initial Assessment: Improve energy level, Participate in home exercise program, Get back to work, or to resume activities faster, Improve knowledge of cardiac disease, Improve muscle strength and endurance, Improve diet and eating habits (eat healthier), Control risk factors (learn risk factor modification) Scale for measuring improvement of personal goals: Enter appropriate number in Comments. 2 = Unchanged. 3 = Slightly Better. 4 = Moderate Improvement. 5 = Met my Goal - Diagnosis & Disease Process Outcomes/Goals: Pt IDs own risk factors & lifestyle modifications by Session 10, Verbalizes symptoms of angina & response by session 3., Pt independently manages Plan/Interventions: Assist Pt to ID & engage in lifestyle modification to reduce CVD risk, Instruct on individual risk factors, Review symptoms of angina & emergency actions, Review secondary diagnosis & identify educational needs. - Safety Referral to Physical Therapy: No Referral to [facility] Case Management: No Fall Risk Assessed:: Yes Assistive Devices:: None Exercise - Initial Assessment - Visit Date of Eval: 12/04/20 Session #:: 0 - pre-cardiac rehab evaluation Mets: Pre-: >5 METS for 30 minutes by discharge - Physician Prescribed Exercise Modalities: Treadmill, Airdyne, NuStep Frequency: 3x/week for 12 weeks [36 sessions] Intensity: 60-80% of age predicted maximum heart rate reserve Current METSs:: 3.0 Target Heart Rate:: 100-130 Resting Blood Pressure: 124/90 EKG Type: Persistent A-Fib - Outcomes & Goals Goals:: Verbalizes understanding of THR, RPE & goal METS by session 6, Documents in home exercise log/reports 30 min aerobic 5 day/wk by DC, Demonstrates accurate pulse taking by DC - Intervention & Plan Exercise Program Goals: Instruct on personal THR & RPE, Instruct on MET level & personal MET goal, Show patient to take own pulse /validate performance until accurate, Instruct on home exercise - Physical Activity Home Exercise Physical Activity - Home Exercise: Safe Exercise, Warm-up, Self-monitoring, Cool-Down, Home Exercise > 30 min Daily, Sitting Time <3 hours/daily - Outcomes & Goals Outcomes/Goals: Demonstrates correct Warm-up/exercise Cool-Down (S3) if = 2.5 METs, Verbalizes symptoms of exercise intolerance by Session 3 (S3), Demonstrate safe equipment use (S3) & follows exercise prescrition (6) - Intervention & Plan Plan/Intervention: Instruct warm-up & cool-down if exercising at > 2 METs, Instruct on symptoms of exercise intolerance & actions to take, Instruct & monitor on saf, Assess intial functional capacity & safety risk Nutrition - Initial Assessment - Program Goals Nutrition Program Goals: LDL <100 optimal. 100 - 129 Near optimal. 130 - 159 Borderline High. 160 - 189 High. Total Cholesterol <200 desirable. 200 - 239 Borderline High. >/= 240 High. HDL < 40 Low >/=60 High. Triglycerides <150 desirable. <199 optimal. VlDL 5 - 40. HgbA1C <7%. BMI <25 Patient has diagnosis of Hyperlipidemia (ICD E78)?: Yes - Visit Date of Assessment:: 12/04/20 Session #:: 0 - pre-cardiac rehab evaluation - Cholesterol/Lipids Triglycerides (mg/dL): 268 - 10/14/2020 Total Cholesterol (mg/dL): 223 LDL Cholesterol (mg/dL): 133 HDL Cholesterol (mg/dL): 36 Determine presence & major risk factors that modify LDL goal: Hypertension or hypertensive medication, Low HDL cholesterol <40 mg/dL*, Family history of premature CHD in Male < 55 years: female <65 yearsFa, Age men > 45 years; women >/= 55 years Outcomes/Goals: Pt IDs own risk factors & lifestyle modifications by Session 10, Verbalizes symptoms of angina & response by session 3., Pt independently manages Intervention/Plan: Instruct on personal lipid levels & lipid goals/NCEP guidelines, Instruct on cholesterol Referral to dietitian:: Yes - Medical Nutrition Therapy - Diabetes (Other Core Measures) Diabetes Type: Not Applicable - Weight Mgt (Other Care) Not Applicable: No Height: 6 ft 1 in Weight:: 296 lb BMI: 39.0 Diagnosis Overweight/Obesity BMI> 30% ICD-10 E66: Yes Diagnosis High BMI/Morbid Obesity BMI> 35% ICD-10 Z68: Yes Outcomes/Goals: Pt sets, maintains & shows weight loss goal & trend during rehab Intervention/Plan: Instruct on ideal BMI & set weight loss goal w/patient, Assist pt to ID & incorporate diet changes for weight loss by S9, Refer to Structured Weight Loss program as appropriate, Encourage goal of using 250- 300dcal per session for weight loss - Healthy Eating Habits Will attend diet classes:: Yes Outcomes/Goals:: Consume diet rich in vegs,fruits,whole grain/high fiber,fish,lean meat, Limit sat/trans fats,cholesterol & added salts & sugars Intervention/Plan:: Assess current eating habits Nutrition - 30-Day Assessment Nutrition - 60-Day Assessment Nutrition - 90-Day Assessment Nutrition - Final Assessment Medical - Initial Assessment - Visit Date of Eval: 12/04/20 Session #:: 0 - Pre-cardiac rehab evaluation - Medication Compliance Preventative Medication(s):: Aspirin, Statin/lipid, Beta amx, Eliquis H/O mental health issues: depression, anxiety, or addiction?: Yes Doesn?t believe in the benefits of treatment?: No Believes medications are unnecessary or harmful?: No Has a concern about medication side effects?: No Expresses concern over the cost of medications?: No Outcomes/Goals: Verbalizes medications,desired effect & common side effects @ DC, Pt self-reports following medication regimen, Keeps card in wallet w/medications listed by DC Interventions/plans: Review medication list w/patient every two weeks, Instruct importance of taking meds as ordered & assist problem solving - Tobacco Use Tobacco Use: Non-smoker - Hypertension Hypertension Diagnosis:: Hypertension ICD-10 I10 Resting Blood Pressure:: 120/90 [place] [employer] Hypertension Guidelines: [place] [employer] Hypertension Guidelines. Normal BP Less than 120/80. Elevated BP 120/80. Hypertension Stage 1: BP 130-139/80-89. Hypertesnion Stage 2: BP 140 or higher/90 or higher. Hypertension Crisis: BP higher than 180/120 Outcomes/Goals: Able to verbalize/achieve optimal blood pressure <130/80, Incorporates diet changes & exercise for blood pressure control by DC Interventions/plan: Instruct on optimal blood pressure, hypertension & medications, Instruct on effects of sodium, alcohol, stress, exercise &hypertension - Tobacco Cessation Referral Smoking Cessation Referral:: No Individual Education/Counseling:: No Education Schedule Given:: Yes Medical- 30-Day Assessment Medical- 60-Day Assessment Medical- 90-Day Assessment Medical - Final Assessment Psychosocial - Initial Assess - VIsit Date of Eval: 12/04/20 Session #:: 0 - pre-cardiac rehab evaluation Not Applicable: No History of previous Mental disease:: Yes History of Emotional Disorders: Anxious, Depression - Psychosocial Test Tool Used:: [place] Joel QOL Cardiac, PHQ-9 Questionnaire phq-9 Severity: Severity. 1-4 Minimal Depression. 5-9 Mild Depression. 10-14 Moderate Depression. 15-19 Moderately Sever Depression. 20-27 Severe Depression. Rule: - Outcomes/Goals: See list Psychosocial Outcomes/Goals:: ID's personal stressors & 2 strategies to manage stress by discharge - Intervention/Plan: See List Interventions/Plan:: Assess stressors,coping strategies & signs of derpression on admission, Instruct/assist pt to develop coping & personal stress Mgt strategies, Instruct patient to recognize signs & symptoms of depression, Instruct patient to recog Psychosocial - 30-Day Assess Psychosocial - 60-Day Assess Psychosocial - 90-Day Assess Psychosocial - Final Assessmen Patient Health Questionnaire Initial Assessment 1. Little interest or pleasure in doing things: Not at all 2. Feeling down, depressed, or hopeless: Not at all 3. Trouble falling or staying asleep, or sleeping too much: Not at all 4. Feeling tired or having little energy: Several days 5. Poor appetite or overeating: Not at all 6. Feeling bad about yourself -- or that you are a failure or have let yourself or your family down: Not at all 7. Trouble concentrating on things, such as reading the newspaper or watching television: Not at all 8. Moving or speaking so slowly that other people could have noticed. Or the opposite - being so fidgety or restless that you have been moving around a lot more than usual: Not at all 9. Thoughts that you would be better off , or of hurting yourself in some way: Not at all How difficult have these problems made it for you to do your work, take care of things at home, or get along with other people?: Not difficult at all Total Score: 1 RUSS-Q SV Test - Statements CAD is a disease of the arteries in the heart: False Examples of risk factors for heart disease: True Angina is chest pain or discomfort: I Don't Know The benefits of resistance training include: True Eating more meat and dairy products: False Anti-platelet medications such as aspirin are important: True The only effective way to manage stress: False An exercise warm-up slowly increases heart rate: I Don't Know Prepared, processed foods usually have high sodium: True Depression is common after a heart attack: True The statin medications lower cholesterol: True To control blood pressure, lower the amount of sodium: True If someone gets chest discomfort during walking: False Transfats are partially hydrogenated vegetable oils: I Don't Know Sleep apnea that is not treated increases the risk: I Don't Know To control cholesterol, one should become a vegetarian: I Don't Know Someone knows if he/she is exercising at the right level: I Don't Know Diabetes cannot be prevented with exercise & health eating: False Stress is a large risk for heart attack: True A diet that can help lower blood pressure is rich in: I Don't Know - Total Score Total Correct Responses: 13 Self-Efficacy Initial Assessment We would like to know how confident you are in doing certain activities. Please select your confidence level for:: Select your confidence level for the following using the scale 1-10 where 1 is not at all confident and 10 is totally confident. Your score is the average of all 6 responses. Fatigue: How confident are you that you can keep the fatigue caused by your disease from interfering with the things you want to do? Select Number: 3 Physical Discomfort or Pain: How confident are you that you can keep the physical discomfort or pain of your disease from interfering with the things you want to do? Select Number: 8 Emotional Distress: How confident are you that you can keep the emotional distress caused by your disease from interfering with the things you want to do? Select Number: 6 Other Symptoms or Health Problems: How confident are you that you can keep other symptoms or health problems from interfering with the things you want to do? Select Number: 4 Different Tasks and Activities: How confident are you that you can do the different tasks and activities needed to manage your health condition so as to reduce your need to see a doctor? Select Number: 7 Medication: How confident are you that you can do things other than just taking medication to reduce how much your illness affects your everyday life? Select Number: 8 Total Score:: 6 Nutrition Survey - Nutrition Survey Initial Have you lost >10 lbs over the past 2 months without trying?: No Are you following a special diet at home for diabetes, low fat, or low salt?: No Are you interested in meeting with a dietitian for help understanding your diet?: Yes Do you eat less than 3 meals a day?: No Do you eat fatty meats (foote, sausage, ribs, etc), fried foods, desserts, large amounts of salad dressings, margarine, butter, or cheese most days?: Yes Do you have food allergies? [Enter types in comment field]: No Do you eat in restaurants more than 3 times a week?: No Do you season food with salt, seasoning salt, or garlic salt?: Yes Do you used canned, boxed, frozen meals, or soups, seasoning packets?: Yes - Medical Nutriton Therapy & Why Weight weight loss referral. Total Score:: 4
--- NOTE | 2020-12-04 07:00 | PCM.CR.HP2 ---
CR - History & Physical - General Arrival date:: 12/04/20 Arrival time:: 06:59 Date of Referral:: 11/29/20 Date of CR Evaluation:: 12/04/20 Referring Physician: Dr. Yu Srinivasan Primary Diagnosis: Heart Valve Replacement - History of Present Cardiac Event Onset Date: Enter Onset Date of cardiac illnesses in Comment field below Heart valve replacement or repair:: Yes - Aortic valve Replacement @ [facility] Type of Symptoms:: shortness of breath low energy; had history of aortic stenosis for about 2 years and had been monitoring it. Interventions with present event:: echocardiogram, heart cath and replacement of aortic valve. Were there any complications?: none had TAVR procedure - Sleep Disorder Evaluation Hx of Sleep Apnea: Yes Do you snore loudly (louder than talking or can be heard through closed doors)?: Yes Do you often feel tired/ fatigued/ sleepy during daytime?: No Has anyone observed you stop breathing during sleep?: No History of Hypertension (for STOP score): No - has CPAP at home wears at STOP Results: Negative - Medications Home Medications: Ambulatory Orders Medication Instructions Recorded albuterol sulfate 90 mcg/actuation 2 puff INHALATION Q6H PRN 05/15/19 aerosol inhaler apixaban 5 mg tablet 5 mg PO BID 05/15/19 lisinopril 10 1 tab PO DAILY 05/15/19 mg-hydrochlorothiazide 12.5 mg tablet alprazolam 0.5 mg tablet 0.5 mg PO BID PRN 05/16/19 aspirin 81 mg tablet,delayed 81 mg PO DAILY 09/22/20 release metoprolol succinate 50 mg 50 mg PO DAILY #90 tab 11/11/20 tablet,extended release 24 hr atorvastatin 20 mg tablet 20 mg PO QHS 11/29/20 cholecalciferol (vitamin D3) 50 50 mcg PO DAILY 11/29/20 mcg (2,000 unit) capsule multivitamin 1 tab PO DAILY 11/29/20 apixaban [Eliquis] 5 mg PO BID 12/04/20 lisinopril-hydrochlorothiazide 1 tab PO DAILY 12/04/20 - Allergies Allergies/Adverse Reactions: Allergies No Known Allergies Allergy (Verified 05/20/20 09:38) Advanced Directives - Advanced Directives Power of Investment Sales Assistant: Yes Living Will: Yes Advance Directives Information Provided: No Advance Directives on File: No DNR Order?:: No - MOLST See MOLST form: No Past Medical History - Covid-19 Screening Fever: No Unexplained muscle aches: No Current respiratory symptoms: No Upper respiratory infections symptoms: No Gastro-intestinal symptoms: No Zro-Nzak-Jusuvr symptoms: No Has tested positive for COVID-19 in last 30 days: No Date of testin08/22/20 - [employer] Vaccination Has High Risk Exposures ID'd by Health dept/Inf Control team: No 65 years or older:: Yes Lives in Assisted Living facility:: No Has a chronic lung disease or moderate to severe asthma:: Yes Has a serious heart condition:: Yes Severely obese (Body Mass Index of 40 or higher):: Yes Diabetic:: No Has chronic kidney disease undergoing dialysis:: No Has liver disease:: No - Past Medical Illness Medical History: Past Medical History (Last Updated 11/29/20 @ 13:11 by Huong Mays) Anxiety F41.9 Asthma J45.909 Cirrhosis of liver K74.[address] Abd 10/28/20 Elevated LFTs R79.89 Essential (primary) hypertension I10 Hyperlipidemia E78.5 Longstanding persistent atrial fibrillation I48.11 DCCV 05/2019, 06/2019 New onset atrial fibrillation Onset Date: 03/2019 I48.91 Nonrheumatic aortic (valve) stenosis I35.0 Obesity E66.9 Obstructive sleep apnea G47.33 - Past Surgical History Surgical History: Past Surgical History (Last Updated 11/29/20 @ 13:11 by Huong Mays) History of appendectomy Z90.49 History of cardioversion Onset Date: 06/25/19 Z98.890 History of herniorrhaphy Z98.890, Z87.19 History of left heart catheterization Z98.890 History of tonsillectomy Z90.89 History of transcatheter aortic valve replacement (TAVR) Onset Date: 11/24/20 Z95.2 TRANSFEMORAL TRANSCATHETER AORTIC VALVE REPLACEMENT w/ A 26 MANUEL S3 VALVE IMPLANTATION. 11/24/20 - Family History Summary Family History: Family History (Last Reviewed 11/21/19 @ 11:[address] Dmitri Srinivasan MD) Sister Cancer pancreatic Father Cancer prostate Mother Heart disease CHF COPD (chronic obstructive pulmonary disease) Social History - Smoking History Smoking Status: Never smoker - Alcohol Use Alcohol Usage: Yes - minimal use - Substance Abuse Hx Substance Use: No - Occupation Occupation (List type of work in comments):: Retired - Hobbies, Recreation, Social Activities Hobbies: Farm - and gardening, Other Recreational Activities: I am able to engage in all my recreational activities Social Environment - Status Marital Status: - Current Living Arrangements Living Environment:: Spouse - Children How many children do you have?: 2 Do any of your children live nearby?: No - Safety Do you feel safe in your surroundings?: Yes - Assistance Do you need any assistance at home?: none Review of Systems - Review of Systems Hints: Right click = Denies (Slash). Left click = Reports ([place]) Review of Present Symptoms: Reports: Shortness of Breath with Exertion - still experiencing a little bit of dyspnea, but has improved since the surgery., Dizziness/Lightheadedness, Fatigue - not nearly as sandra as pre-surgery, Heart Arrhythmia/Irregularities - persistent A-Fib, Appetite - Normal, Appetite - Special Diet - working on the Whole 30., Sleep - Normal. 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 - Vital Signs Temperature: 97.5 F Respiratory Rate: 16 Pulse Ox: 96 Blood Pressure: 124/90 - Pulse Pulse Rate: 90 Pulse Rhythm: Regular - Hypertension Blood Pressure Sitting - Left Arm: 124/90 - Blood Cholesterol/Lipids Total Cholesterol (mg/dL) Goal = less than 200 mg/dL: 223 - 10/14/2020 HDL Cholesterol (mg/dL) Goal = less than 40 mg/dL: 36 LDL Cholesterol (mg/dL) Goal = less than 70 mg/dL: 133 Triglycerides (mg/dL) Goal = less than 150 mg/dL: 268 - Obesity Height: 6 ft 1 in Weight:: 296 lb Weight in Pounds: 296.0 lbs Weight Source: Standing Scale Body Mass Index (BMI): 39.0 Nutritional Referral for Obesity: Yes - Risk Stratification Risk Guidelines: Lowest Risk: Risk Factor for Smoking, Risk Factor for Sedentary Lifestyle, Moderate Risk: Risk Factor for Dyslipidemia, Risk Factor for Hypertension, Risk Factor for Depression - treated for Anxiety & Depression, Highest Risk: Risk Factor for Obesity - Family History Family History: Family History (Last Reviewed 11/21/19 @ 11:[address] Dmitri Srinivasan MD) Sister Cancer Father Cancer Mother Heart disease COPD (chronic obstructive pulmonary disease) Motivation - Motivation to Participate On a scale of 1 to 10, how prepared are you to commit to attending program?: 10 - Be Positive About it!! What do you see as barriers to successfully being able to complete the program?: none What do you see as the benefits of succesfully completing the program? In other words, what do you hope to get out of participating in the program?: more endurance less fatigue Are there issues you are dealing with that will interfere with completing the program?: none Do you have a spouse or signficant other, family or friends who will help support you to complete the program?: Yes, excellent
[2020-12-04 07:21] VITALS: BP 120/90; BP 124/90; BMI 39.0
[2020-12-04 07:35] VITALS: BP 124/90; PULSE 90; RESP 16; TEMP 36.4; O2SAT 96; BMI 39.0
== END ==
PROVIDERS: PCP Family Medicine; Referring Provider Internal Medicine Cardiovascular Disease; Visit Provider Internal Medicine Cardiovascular Disease
DX: I10 Essential (primary) hypertension (principal); E66.9 Obesity, unspecified; E78.5 Hyperlipidemia, unspecified; G47.33 Obstructive sleep apnea (adult) (pediatric)

== ENCOUNTER → 2020-12-05 09:48 | Outpatient (CLI) | payer MEDICARE, OTHER, SELFPAY ==
[2020-12-04 07:21] VITALS: BMI 39.0
[2020-12-04 07:35] VITALS: BMI 39.0
[2020-12-05 13:04] LABS: AST(SGOT) 65 U/L (15-37); Alanine Aminotransfer ALT/SGPT 69 U/L (16-61); Albumin, Serum 3.9 g/dL (3.2-5.0); Alkaline Phosphatase 138 U/L (45-117); Anion Gap 6 (5-15); BUN 29 mg/dL (7-18); BUN/Creat Ratio 24.8 RATIO (10-20); Calcium,Total 9.4 mg/dL (8.5-10.1); Chloride 100 mmol/L (98-107); Creatinine, Serum 1.17 mg/dL (0.70-1.30); EST Glomerular Filtration Rate 66 mL/min (>60); Est Glom Filt Rate - Afr Amer 80 mL/min (>60); Globulin 3.8 g/dL (2.2-4.2); Glucose 112 mg/dL (74-106); Potassium 4.4 mmol/L (3.5-5.1); Protein, Total 7.7 g/dL (6.4-8.2); Sodium Level 135 mmol/L (136-145)
== END ==
PROVIDERS: PCP Family Medicine; Referring Provider Family Medicine; Visit Provider Family Medicine
DX: K74.60 Unspecified cirrhosis of liver (principal)
CPT/HCPCS: 36415; 80053

== ENCOUNTER 2020-12-10 08:00 | Outpatient (RCR) | payer MEDICARE, OTHER, SELFPAY ==
[2020-12-04 07:21] VITALS: BMI 39.0
[2020-12-04 07:35] VITALS: BMI 39.0
== END 2020-12-10 23:59 ==
LOC: CR 08:00
PROVIDERS: PCP Family Medicine; Referring Provider Internal Medicine Cardiovascular Disease; Visit Provider Internal Medicine Cardiovascular Disease
DX: I35.0 Nonrheumatic aortic (valve) stenosis (principal); I48.11 Longstanding persistent atrial fibrillation; I10 Essential (primary) hypertension; E78.5 Hyperlipidemia, unspecified; K74.60 Unspecified cirrhosis of liver; R79.89 Other specified abnormal findings of blood chemistry; Z95.2 Presence of prosthetic heart valve
CPT/HCPCS: 93798

== ENCOUNTER 2021-01-06 08:00 | Outpatient (RCR) | payer SELFPAY ==
[2020-12-04 07:21] VITALS: BMI 39.0
[2020-12-04 07:35] VITALS: BMI 39.0
[2020-12-11 08:52] VITALS: BMI 38.1
== END 2021-01-10 23:59 ==
LOC: NS 08:00
PROVIDERS: PCP Family Medicine; Visit Provider Internal Medicine Cardiovascular Disease
DX: Z71.3 Dietary counseling and surveillance (principal); E66.9 Obesity, unspecified; I10 Essential (primary) hypertension; E78.5 Hyperlipidemia, unspecified; G47.33 Obstructive sleep apnea (adult) (pediatric)
CPT/HCPCS: 97802; 97803

== ENCOUNTER 2021-01-09 08:00 | Outpatient (RCR) | payer MEDICARE, OTHER, SELFPAY ==
[2020-12-04 07:21] VITALS: BMI 39.0
[2020-12-04 07:35] VITALS: BMI 39.0
[2020-12-11 08:52] VITALS: BMI 38.1
--- NOTE | 2021-01-02 06:36 | CR.ITP_ITS ---
Diagnosis Exercise - 30-day Assessment - Visit Date of Eval: 01/02/21 Session #:: 10 - Physician Prescribed Exercise Modalities: Treadmill, Airdyne, NuStep Frequency: 3x/week for 12 weeks [36 sessions] Intensity: 60-80% of age predicted maximum heart rate reserve Current METSs:: 4.0 increased from 3.0 Target Heart Rate:: 100-130 Current RPE:: 12-13 Maximum Excercise HR:: 107 Resting Blood Pressure: 104/48 Maximum Exercise Blood Pressure: 124/60 EKG Type: Persistent atrial fibrillation - Outcomes & Goals Goals:: Verbalizes understanding of THR, RPE & goal METS by session 6, Documents in home exercise log/reports 30 min aerobic 5 day/wk by DC, Demonstrates accurate pulse taking by DC - Intervention & Plan Exercise Program Goals: Instruct on personal THR & RPE, Instruct on MET level & personal MET goal, Show patient to take own pulse /validate performance until accurate, Instruct on home exercise - 30-day Reassessments 30 day Reassessments:: Progressing - Physical Activity Home Exercise Physical Activity - Home Exercise: Safe Exercise, Warm-up, Self-monitoring, Cool-Down, Home Exercise > 30 min Daily, Sitting Time <3 hours/daily - Outcomes & Goals Outcomes/Goals: Demonstrates correct Warm-up/exercise Cool-Down (S3) if = 2.5 METs, Verbalizes symptoms of exercise intolerance by Session 3 (S3), Demonstrate safe equipment use (S3) & follows exercise prescrition (6) - Intervention & Plan Plan/Intervention: Instruct warm-up & cool-down if exercising at > 2 METs, Instruct on symptoms of exercise intolerance & actions to take, Instruct & monitor on saf, Assess intial functional capacity & safety risk - 30-day Reassessments 30 day Reassessments:: Progressing Nutrition - Initial Assessment Nutrition - 30-Day Assessment - Program Goals Nutrition Program Goals: LDL <100 optimal. 100 - 129 Near optimal. 130 - 159 Borderline High. 160 - 189 High. Total Cholesterol <200 desirable. 200 - 239 Borderline High. >/= 240 High. HDL < 40 Low >/=60 High. Triglycerides <150 desirable. <199 optimal. VlDL 5 - 40. HgbA1C <7%. BMI <25 Patient has diagnosis of Hyperlipidemia (ICD E78)?: Yes - Visit Date of Assessment:: 01/02/21 Session #:: 10 - Cholesterol/Lipids Triglycerides (mg/dL): 268 - 10/14/2020 Total Cholesterol (mg/dL): 223 LDL Cholesterol (mg/dL): 133 HDL Cholesterol (mg/dL): 36 Determine presence & major risk factors that modify LDL goal: Hypertension or hypertensive medication, Low HDL cholesterol <40 mg/dL*, Family history of premature CHD in Male < 55 years: female <65 yearsFa, Age men > 45 years; women >/= 55 years Outcomes/Goals: Pt IDs own risk factors & lifestyle modifications by Session 10, Verbalizes symptoms of angina & response by session 3., Pt independently manages Intervention/Plan: Instruct on personal lipid levels & lipid goals/NCEP guidelines, Instruct on cholesterol Referral to dietitian:: No - Met with Nutritional Services on 12/24/2020 30-day Reassessments:: Progressing - Diabetes (Other Core Measures) Diabetes Type: Not Applicable - Weight Mgt (Other Care) Not Applicable: No Height: 6 ft 1 in Weight:: 285 lb - loss of 4 pounds! BMI: 37.5 Diagnosis Overweight/Obesity BMI> 30% ICD-10 E66: Yes Diagnosis High BMI/Morbid Obesity BMI> 35% ICD-10 Z68: Yes Outcomes/Goals: Pt sets, maintains & shows weight loss goal & trend during rehab Intervention/Plan: Instruct on ideal BMI & set weight loss goal w/patient, Assist pt to ID & incorporate diet changes for weight loss by S9, Encourage goal of using 250-300dcal per session for weight loss 30 day Reassessments:: Progressing - Healthy Eating Habits Will attend diet classes:: Yes Outcomes/Goals:: Consume diet rich in vegs,fruits,whole grain/high fiber,fish,lean meat, Limit sat/trans fats,cholesterol & added salts & sugars Intervention/Plan:: Assess current eating habits 30-day Reassessments:: Progressing Nutrition - 60-Day Assessment Nutrition - 90-Day Assessment Nutrition - Final Assessment Medical - Initial Assessment Medical- 30-Day Assessment - Visit Date of Eval: 01/02/21 Session #:: 10 - Medication Compliance Preventative Medication(s):: Aspirin, Statin/lipid, Beta max, Eliquis H/O mental health issues: depression, anxiety, or addiction?: No Doesn?t believe in the benefits of treatment?: No Believes medications are unnecessary or harmful?: No Has a concern about medication side effects?: No Expresses concern over the cost of medications?: No Outcomes/Goals: Verbalizes medications,desired effect & common side effects @ DC, Pt self-reports following medication regimen, Keeps card in wallet w/medications listed by DC Interventions/plans: Instruct on medication effects & side effects, Review medication list w/patient every two weeks, Instruct importance of taking meds as ordered & assist problem solving 30-day Reassessments:: Progressing - Tobacco Use Tobacco Use: Non-smoker - Hypertension Hypertension Diagnosis:: Hypertension ICD-10 I10 Resting Blood Pressure:: 104/48 [place] [employer] Hypertension Guidelines: [place] [employer] Hypertension Guidelines. Normal BP Less than 120/80. Elevated BP 120/80. Hypertension Stage 1: BP 130-139/80-89. Hypertesnion Stage 2: BP 140 or higher/ 90 or higher. Hypertension Crisis: BP higher than 180/120 Peak Exercise Blood Pressure:: 124/60 Outcomes/Goals: Able to verbalize/achieve optimal blood pressure <130/80, Incorporates diet changes & exercise for blood pressure control by DC Interventions/plan: Instruct on optimal blood pressure, hypertension & medications, Instruct on effects of sodium, alcohol, stress, exercise &hypertension 30 day Reassessments:: Met - Tobacco Cessation Referral Smoking Cessation Referral:: No Individual Education/Counseling:: No Education Schedule Given:: Yes Medical- 60-Day Assessment Medical- 90-Day Assessment Medical - Final Assessment Psychosocial - Initial Assess Psychosocial - 30-Day Assess - VIsit Date of Eval: 01/02/21 Session #:: 10 Not Applicable: Yes History of previous Mental disease:: No - Psychosocial Test Tool Used:: PHQ-9 Questionnaire phq-9 Severity: Severity. 1-4 Minimal Depression. 5-9 Mild Depression. 10-14 Moderate Depression. 15-19 Moderately Sever Depression. 20-27 Severe Depression. Rule: - Referral to Behavioral Health PS - Interventions: Yes Attend Stress Management Classes, No Referral to Behavioral Health if PHQ-9 score >9:, No Referral to [facility], No Referral to Physician if PHQ-9 if score is 5-9: - Outcomes/Goals: See list Psychosocial Outcomes/Goals:: ID's personal stressors & 2 strategies to manage stress by discharge - Intervention/Plan: See List Interventions/Plan:: Assess stressors,coping strategies & signs of derpression on admission, Instruct/assist pt to develop coping & personal stress Mgt strategies, Instruct patient to recognize signs & symptoms of depression, Instruct patient to recog - 30-day Reassessments: 30 day Reassessments:: Progressing Psychosocial - 60-Day Assess Psychosocial - 90-Day Assess Psychosocial - Final Assessmen Patient Health Questionnaire 30-Day Re-eval Assessment 1. Little interest or pleasure in doing things: Not at all 2. Feeling down, depressed, or hopeless: Not at all 3. Trouble falling or staying asleep, or sleeping too much: Not at all 4. Feeling tired or having little energy: Several days 5. Poor appetite or overeating: Not at all 6. Feeling bad about yourself -- or that you are a failure or have let yourself or your family down: Not at all 7. Trouble concentrating on things, such as reading the newspaper or watching television: Not at all 8. Moving or speaking so slowly that other people could have noticed. Or the opp osite - being so fidgety or restless that you have been moving around a lot more than usual: Not at all 9. Thoughts that you would be better off , or of hurting yourself in some way: Not at all How difficult have these problems made it for you to do your work, take care of things at home, or get along with other people?: Not difficult at all Total Score: 1 Self-Efficacy 30-Day Re-eval Assessment We would like to know how confident you are in doing certain activities. Please select your confidence level for:: Select your confidence level for the following using the scale 1-10 where 1 is not at all confident and 10 is totally confident. Your score is the average of all 6 responses. Fatigue: How confident are you that you can keep the fatigue caused by your disease from interfering with the things you want to do? Select Number: 6 Physical Discomfort or Pain: How confident are you that you can keep the physical discomfort or pain of your disease from interfering with the things you want to do? Select Number: 9 Emotional Distress: How confident are you that you can keep the emotional distress caused by your disease from interfering with the things you want to do? Select Number: 7 Other Symptoms or Health Problems: How confident are you that you can keep other symptoms or health problems from interfering with the things you want to do? Select Number: 7 Different Tasks and Activities: How confident are you that you can do the different tasks and activities needed to manage your health condition so as to reduce your need to see a doctor? Select Number: 8 Medication: How confident are you that you can do things other than just taking medication to reduce how much your illness affects your everyday life? Select Number: 9 Total Score:: 7 Nutrition Survey
[2021-01-02 06:43] VITALS: BP 104/48; BP 124/60; BMI 37.5
== END 2021-01-10 23:59 ==
LOC: CR 08:00
PROVIDERS: PCP Family Medicine; Referring Provider Internal Medicine Cardiovascular Disease; Visit Provider Internal Medicine Cardiovascular Disease
DX: I35.0 Nonrheumatic aortic (valve) stenosis (principal); Z95.2 Presence of prosthetic heart valve; I48.11 Longstanding persistent atrial fibrillation; I10 Essential (primary) hypertension; E78.5 Hyperlipidemia, unspecified; K74.60 Unspecified cirrhosis of liver; R79.89 Other specified abnormal findings of blood chemistry
CPT/HCPCS: 93798

== ENCOUNTER 2021-01-28 09:26 | Outpatient (RCR) | payer SELFPAY ==
[2020-12-11 08:52] VITALS: BMI 38.1
[2021-01-02 06:43] VITALS: BMI 37.5
== END 2021-02-10 23:59 ==
LOC: NS 09:26
PROVIDERS: PCP Family Medicine; Visit Provider Internal Medicine Cardiovascular Disease
DX: Z71.3 Dietary counseling and surveillance (principal); E66.9 Obesity, unspecified; I10 Essential (primary) hypertension; E78.5 Hyperlipidemia, unspecified; G47.33 Obstructive sleep apnea (adult) (pediatric)
CPT/HCPCS: 97803

== ENCOUNTER → 2021-02-02 14:41 | Outpatient (CLI) | payer MEDICARE, OTHER, SELFPAY ==
[2021-02-02 07:26] VITALS: BMI 36.3
[2021-02-02 17:47] LABS: International Normalized Ratio 1.3; Prothrombin Time (Protime)PT. 15.3 SECONDS (11.7-14.9)
[2021-02-02 17:48] LABS: Partial Thromboplast Time 33.6 Seconds (24.1-36.2)
[2021-02-02 17:54] LABS: ALB/GLOB Ratio 1.1 RATIO (0.9-2.4); AST(SGOT) 47 U/L (15-37); Alanine Aminotransfer ALT/SGPT 62 U/L (16-61); Albumin, Serum 3.8 g/dL (3.2-5.0); Alkaline Phosphatase 127 U/L (45-117); Anion Gap 4 (5-15); BUN 38 mg/dL (7-18); BUN/Creat Ratio 32.5 RATIO (10-20); Calcium,Total 9.4 mg/dL (8.5-10.1); Chloride 106 mmol/L (98-107); Creatinine, Serum 1.17 mg/dL (0.70-1.30); EST Glomerular Filtration Rate 66 mL/min (>60); Est Glom Filt Rate - Afr Amer 80 mL/min (>60); Ferritin 316 ng/mL (26-388); Globulin 3.6 g/dL (2.2-4.2); Glucose 89 mg/dL (74-106); Potassium 4.7 mmol/L (3.5-5.1); Protein, Total 7.4 g/dL (6.4-8.2); Sodium Level 139 mmol/L (136-145)
[2021-02-04 18:26] LABS: ANTINUCLEAR ANTIBODIES DIRECT Negative (Negative); Anti-Mitochondrial AB 22.2 Units (0.0-20.0)
[2021-02-04 18:27] LABS: AFP, Tumor Marker 2.5 ng/mL (0.0-8.3); Anti-Smooth Muscle ABS 22 Units (0-19); Ceruloplasmin 22.8 mg/dL (16.0-31.0)
== END ==
PROVIDERS: PCP Family Medicine; Referring Provider Family Medicine; Visit Provider Internal Medicine Gastroenterology
DX: K74.60 Unspecified cirrhosis of liver (principal); B19.9 Unspecified viral hepatitis without hepatic coma; I35.0 Nonrheumatic aortic (valve) stenosis; I48.11 Longstanding persistent atrial fibrillation; I10 Essential (primary) hypertension; E78.5 Hyperlipidemia, unspecified; R79.89 Other specified abnormal findings of blood chemistry; Z95.2 Presence of prosthetic heart valve
CPT/HCPCS: 36415; 80053; 82105; 82390; 82728; 83516; 85610; 85730; 86038; 93798

== ENCOUNTER 2021-02-09 08:00 | Outpatient (RCR) | payer MEDICARE, OTHER, SELFPAY ==
[2020-12-11 08:52] VITALS: BMI 38.1
[2021-01-02 06:43] VITALS: BMI 37.5
[2021-01-11 00:35] VITALS: BP 104/48; BP 124/60
--- NOTE | 2021-02-02 07:17 | CR.ITP_ITS ---
Diagnosis Exercise - 60-day Assessment - Visit Date of Eval: 02/02/21 Session #:: 23 - Physician Prescribed Exercise Modalities: Treadmill, Airdyne, NuStep Frequency: 3x/week for 12 weeks [36 sessions] Intensity: 60-80% of age predicted maximum heart rate reserve Current METSs:: 5.5 increased from 4.0 Target Heart Rate:: 100-130 Current RPE:: 13-14 Maximum Excercise HR:: 108 Resting Blood Pressure: 96/46 - BPs are low but patient asymtomatic (see Multi- Session report in EHR) Maximum Exercise Blood Pressure: 142/74 EKG Type: Persistent atrial fibrillation - Outcomes & Goals Goals:: Verbalizes understanding of THR, RPE & goal METS by session 6, Documents in home exercise log/reports 30 min aerobic 5 day/wk by DC, Demonstrates accurate pulse taking by DC - Intervention & Plan Exercise Program Goals: Instruct on personal THR & RPE, Instruct on MET level & personal MET goal, Show patient to take own pulse /validate performance until accurate, Instruct on home exercise - 30-day Reassessments 30 day Reassessments:: Progressing - Physical Activity Home Exercise Physical Activity - Home Exercise: Safe Exercise, Warm-up, Self-monitoring, Cool-Down, Home Exercise > 30 min Daily, Sitting Time <3 hours/daily - Outcomes & Goals Outcomes/Goals: Demonstrates correct Warm-up/exercise Cool-Down (S3) if = 2.5 METs, Verbalizes symptoms of exercise intolerance by Session 3 (S3), Demonstrate safe equipment use (S3) & follows exercise prescrition (6) - Intervention & Plan Plan/Intervention: Instruct warm-up & cool-down if exercising at > 2 METs, Instruct on symptoms of exercise intolerance & actions to take, Instruct & monitor on saf, Assess intial functional capacity & safety risk - 30-day Reassessments 30 day Reassessments:: Progressing Nutrition - Initial Assessment Nutrition - 30-Day Assessment Nutrition - 60-Day Assessment - Program Goals Nutrition Program Goals: LDL <100 optimal. 100 - 129 Near optimal. 130 - 159 Borderline High. 160 - 189 High. Total Cholesterol <200 desirable. 200 - 239 Borderline High. >/= 240 High. HDL < 40 Low >/=60 High. Triglycerides <150 desirable. <199 optimal. VlDL 5 - 40. HgbA1C <7%. BMI <25 Patient has diagnosis of Hyperlipidemia (ICD E78)?: Yes - Visit Date of Assessment:: 02/02/21 Session #:: 23 - Cholesterol/Lipids Triglycerides (mg/dL): 268 Total Cholesterol (mg/dL): 223 LDL Cholesterol (mg/dL): 133 HDL Cholesterol (mg/dL): 36 Determine presence & major risk factors that modify LDL goal: Hypertension or hypertensive medication, Low HDL cholesterol <40 mg/dL*, Family history of premature CHD in Male < 55 years: female <65 yearsFa, Age men > 45 years; women >/= 55 years Outcomes/Goals: Pt IDs own risk factors & lifestyle modifications by Session 10, Verbalizes symptoms of angina & response by session 3., Pt independently manages Intervention/Plan: Instruct on personal lipid levels & lipid goals/NCEP guidelines, Instruct on cholesterol Referral to dietitian:: No - Dietary Service on 12/24/2020 30-day Reassessments:: Progressing - Diabetes (Other Core Measures) Diabetes Type: Not Applicable - Weight Mgt (Other Care) Not Applicable: No Height: 6 ft 1 in Weight:: 276 lb BMI: 36.3 Diagnosis Overweight/Obesity BMI> 30% ICD-10 E66: Yes Diagnosis High BMI/Morbid Obesity BMI> 35% ICD-10 Z68: Yes Outcomes/Goals: Pt sets, maintains & shows weight loss goal & trend during rehab Intervention/Plan: Instruct on ideal BMI & set weight loss goal w/patient, Assist pt to ID & incorporate diet changes for weight loss by S9, Encourage goal of using 250-300dcal per session for weight loss 30 day Reassessments:: Progressing - Healthy Eating Habits Will attend diet classes:: Yes Outcomes/Goals:: Consume diet rich in vegs,fruits,whole grain/high fiber,fish,lean meat, Limit sat/trans fats,cholesterol & added salts & sugars Intervention/Plan:: Assess current eating habits 30-day Reassessments:: Progressing - Education Gave educational materials for:: Healthy eating Nutrition - 90-Day Assessment Nutrition - Final Assessment Medical - Initial Assessment Medical- 30-Day Assessment Medical- 60-Day Assessment - Visit Date of Eval: 02/02/21 Session #:: 23 - Medication Compliance Preventative Medication(s):: Aspirin, Beta max, Eliquis H/O mental health issues: depression, anxiety, or addiction?: No Doesn?t believe in the benefits of treatment?: No Believes medications are unnecessary or harmful?: No Has a concern about medication side effects?: No Outcomes/Goals: Verbalizes medications,desired effect & common side effects @ DC, Pt self-reports following medication regimen, Keeps card in wallet w/medications listed by DC Interventions/plans: Instruct on medication effects & side effects, Review medication list w/patient every two weeks, Instruct importance of taking meds as ordered & assist problem solving 30-day Reassessments:: Progressing - Tobacco Use Tobacco Use: Non-smoker - Hypertension Hypertension Diagnosis:: Hypertension ICD-10 I10 Resting Blood Pressure:: 96/46 - Low BPs but asymptomatic [place] [employer] Hypertension Guidelines: [place] [employer] Hypertension Guidelines. Normal BP Less than 120/80. Elevated BP 120/80. Hypertension Stage 1: BP 130-139/80-89. Hypertesnion Stage 2: BP 140 or higher/90 or higher. Hypertension Crisis: BP higher than 180/120 Peak Exercise Blood Pressure:: 142/74 Outcomes/Goals: Incorporates diet changes & exercise for blood pressure control by DC Interventions/plan: Instruct on optimal blood pressure, hypertension & medications, Instruct on effects of sodium, alcohol, stress, exercise &hypertension 30 day Reassessments:: Progressing - Tobacco Cessation Referral Smoking Cessation Referral:: No Individual Education/Counseling:: No Education Schedule Given:: Yes Medical- 90-Day Assessment Medical - Final Assessment Psychosocial - Initial Assess Psychosocial - 30-Day Assess Psychosocial - 60-Day Assess - VIsit Date of Eval: 02/02/21 Session #:: 23 Not Applicable: Yes History of previous Mental disease:: No - Psychosocial Test Tool Used:: PHQ-9 Questionnaire phq-9 Severity: Severity. 1-4 Minimal Depression. 5-9 Mild Depression. 10-14 Moderate Depression. 15-19 Moderately Sever Depression. 20-27 Severe Depression. Rule: - Referral to Behavioral Health PS - Interventions: No Referral to Behavioral Health if PHQ-9 score >9:, No Referral to [facility], No Referral to Physician if PHQ-9 if score is 5-9: - Outcomes/Goals: See list Psychosocial Outcomes/Goals:: ID's personal stressors & 2 strategies to manage stress by discharge - Intervention/Plan: See List Interventions/Plan:: Assess stressors,coping strategies & signs of derpression on admission, Instruct/assist pt to develop coping & personal stress Mgt strategies, Instruct patient to recognize signs & symptoms of depression, Instruct patient to recog - 30-day Reassessments: 30 day Reassessments:: Progressing Psychosocial - 90-Day Assess Psychosocial - Final Assessmen Patient Health Questionnaire 60-Day Re-eval Assessment 1. Little interest or pleasure in doing things: Not at all 2. Feeling down, depressed, or hopeless: Not at all 3. Trouble falling or staying asleep, or sleeping too much: Several days 4. Feeling tired or having little energy: Not at all 5. Poor appetite or overeating: Not at all 6. Feeling bad about yourself -- or that you are a failure or have let yourself or your family down: Not at all 7. Trouble concentrating on things, such as reading the newspaper or watching television: Not at all 8. Moving or speaking so slowly that other people could have noticed. Or the opposite - being so fidgety or restless that you have been moving around a lot more than usual: Not at all 9. Thoughts that you would be better off , or of hurting yourself in some way: Not at all How difficult have these problems made it for you to do your work, take care of things at home, or get along with other people?: Not difficult at all Total Score: 1 Self-Efficacy 60-Day Re-eval Assessment We would like to know how confident you are in doing certain activities. Please select your confidence level for:: Select your confidence level for the following using the scale 1-10 where 1 is not at all confident and 10 is totally confident. Your score is the average of all 6 responses. Fatigue: How confident are you that you can keep the fatigue caused by your disease from interfering with the things you want to do? Select Number: 8 Physical Discomfort or Pain: How confident are you that you can keep the physical discomfort or pain of your disease from interfering with the things you want to do? Select Number: 10 Emotional Distress: How confident are you that you can keep the emotional distress caused by your disease from interfering with the things you want to do? Select Number: 9 Other Symptoms or Health Problems: How confident are you that you can keep other symptoms or health problems from interfering with the things you want to do? Select Number: 8 Different Tasks and Activities: How confident are you that you can do the different tasks and activities needed to manage your health condition so as to reduce your need to see a doctor? Select Number: 9 Medication: How confident are you that you can do things other than just taking medication to reduce how much your illness affects your everyday life? Select Number: 10 Total Score:: 9 Nutrition Survey
[2021-02-02 07:26] VITALS: BP 142/74; BP 96/46; BMI 36.3
== END 2021-02-10 23:59 ==
LOC: CR 08:00
PROVIDERS: PCP Family Medicine; Referring Provider Internal Medicine Cardiovascular Disease; Visit Provider Internal Medicine Cardiovascular Disease
DX: Z95.2 Presence of prosthetic heart valve (principal); I35.0 Nonrheumatic aortic (valve) stenosis; I48.11 Longstanding persistent atrial fibrillation; E78.5 Hyperlipidemia, unspecified; K74.60 Unspecified cirrhosis of liver; R79.89 Other specified abnormal findings of blood chemistry; E11.9 Type 2 diabetes mellitus without complications; K21.9 Gastro-esophageal reflux disease without esophagitis; E66.01 Morbid (severe) obesity due to excess calories; E78.00 Pure hypercholesterolemia, unspecified; N17.9 Acute kidney failure, unspecified; I11.0 Hypertensive heart disease with heart failure; I50.32 Chronic diastolic (congestive) heart failure
CPT/HCPCS: 93798

== ENCOUNTER 2021-02-25 08:53 | Outpatient (RCR) | payer SELFPAY ==
[2021-02-02 07:26] VITALS: BMI 36.3
[2021-02-11 00:20] VITALS: BMI 38.1
== END 2021-03-12 23:59 ==
LOC: NS 08:53
PROVIDERS: PCP Family Medicine; Visit Provider Internal Medicine Cardiovascular Disease
DX: Z71.3 Dietary counseling and surveillance (principal); E66.9 Obesity, unspecified; I10 Essential (primary) hypertension; E78.5 Hyperlipidemia, unspecified; G47.33 Obstructive sleep apnea (adult) (pediatric)
CPT/HCPCS: 97803

== ENCOUNTER 2021-02-27 08:00 | Outpatient (RCR) | payer MEDICARE, OTHER, SELFPAY ==
[2021-02-02 07:26] VITALS: BMI 36.3
[2021-02-11 00:37] VITALS: BP 142/74; BP 96/46; BMI 38.1
--- NOTE | 2021-03-03 08:58 | CR.ITP_ITS ---
Diagnosis Exercise - Final/Discharge - Visit Date of Eval: 03/03/21 Session #:: 34 - Physician Prescribed Exercise Modalities: Treadmill, Airdyne, NuStep Frequency: 3x/week for 12 weeks [36 sessions] Intensity: 60-80% of age predicted maximum heart rate reserve Current METSs:: 5.5 unchanged Target Heart Rate:: 100-130 Current RPE:: 13-14 Maximum Excercise HR:: 123 Resting Blood Pressure: 104/60 Maximum Exercise Blood Pressure: 124/68 EKG Type: Persistent atrial fibrillation with rare PVC Current Physical Activity or Exercising minutes: 40-45 - Outcomes & Goals Goals:: Verbalizes understanding of THR, RPE & goal METS by session 6, Documents in home exercise log/reports 30 min aerobic 5 day/wk by DC, Demonstrates accurate pulse taking by DC - Intervention & Plan Exercise Program Goals: Instruct on personal THR & RPE, Instruct on MET level & personal MET goal, Show patient to take own pulse /validate performance until accurate, Instruct on home exercise - 30-day Reassessments 30 day Reassessments:: Met - Physical Activity Home Exercise Physical Activity - Home Exercise: Safe Exercise, Warm-up, Self-monitoring, Cool-Down, Home Exercise > 30 min Daily, Sitting Time <3 hours/daily - Outcomes & Goals Outcomes/Goals: Demonstrates correct Warm-up/exercise Cool-Down (S3) if = 2.5 METs, Verbalizes symptoms of exercise intolerance by Session 3 (S3), Demonstrate safe equipment use (S3) & follows exercise prescrition (6) - Intervention & Plan Plan/Intervention: Instruct warm-up & cool-down if exercising at > 2 METs, Instruct on symptoms of exercise intolerance & actions to take, Instruct & monitor on saf, Assess intial functional capacity & safety risk - 30-day Reassessments 30 day Reassessments:: Met Nutrition - Initial Assessment Nutrition - 30-Day Assessment Nutrition - 60-Day Assessment Nutrition - 90-Day Assessment Nutrition - Final Assessment - Program Goals Nutrition Program Goals: LDL <100 optimal. 100 - 129 Near optimal. 130 - 159 Borderline High. 160 - 189 High. Total Cholesterol <200 desirable. 200 - 239 Borderline High. >/= 240 High. HDL < 40 Low >/=60 High. Triglycerides <150 desirable. <199 optimal. VlDL 5 - 40. HgbA1C <7%. BMI <25 Patient has diagnosis of Hyperlipidemia (ICD E78)?: Yes - Visit Date of Assessment:: 03/03/21 Session #:: 34 - Cholesterol/Lipids Determine presence & major risk factors that modify LDL goal: Hypertension or hypertensive medication, Low HDL cholesterol <40 mg/dL*, Family history of premature CHD in Male < 55 years: female <65 yearsFa, Age men > 45 years; women >/= 55 years Outcomes/Goals: Pt IDs own risk factors & lifestyle modifications by Session 10, Verbalizes symptoms of angina & response by session 3., Pt independently manages Intervention/Plan: Instruct on personal lipid levels & lipid goals/NCEP guidelines, Instruct on cholesterol Referral to dietitian:: No - Patient had Nutritional Services Education on 12/24/2020 30-day Reassessments:: Met - Diabetes (Other Core Measures) Diabetes Type: Not Applicable - Weight Mgt (Other Care) Not Applicable: No Height: 6 ft 1 in Weight:: 273 lb - Down from 281 BMI: 36.0 Diagnosis Overweight/Obesity BMI> 30% ICD-10 E66: Yes Diagnosis High BMI/Morbid Obesity BMI> 35% ICD-10 Z68: Yes Outcomes/Goals: Pt sets, maintains & shows weight loss goal & trend during rehab Intervention/Plan: Instruct on ideal BMI & set weight loss goal w/patient, Assist pt to ID & incorporate diet changes for weight loss by S9, Encourage goal of using 250-300dcal per session for weight loss 30 day Reassessments:: Progressing - Healthy Eating Habits Will attend diet classes:: Yes Outcomes/Goals:: Consume diet rich in vegs,fruits,whole grain/high fiber,fish,lean meat, Limit sat/trans fats,cholesterol & added salts & sugars Intervention/Plan:: Assess current eating habits 30-day Reassessments:: Met - Education Gave educational materials for:: Healthy eating Medical - Initial Assessment Medical- 30-Day Assessment Medical- 60-Day Assessment Medical- 90-Day Assessment Medical - Final Assessment - Visit Date of Eval: 03/03/21 Session #:: 34 - Medication Compliance Preventative Medication(s):: Aspirin, Statin/lipid, Eliquis H/O mental health issues: depression, anxiety, or addiction?: No Doesn?t believe in the benefits of treatment?: No Believes medications are unnecessary or harmful?: No Has a concern about medication side effects?: No Expresses concern over the cost of medications?: No Outcomes/Goals: Verbalizes medications,desired effect & common side effects @ DC, Pt self-reports following medication regimen, Keeps card in wallet w/medications listed by DC Interventions/plans: Instruct on medication effects & side effects, Review medication list w/patient every two weeks, Instruct importance of taking meds as ordered & assist problem solving 30-day Reassessments:: Met - Tobacco Use Tobacco Use: Non-smoker - Hypertension Hypertension Diagnosis:: Hypertension ICD-10 I10 Resting Blood Pressure:: 104/60 [place] [employer] Hypertension Guidelines: [place] [employer] Hypertension Guidelines. Normal BP Less than 120/80. Elevated BP 120/80. Hypertension Stage 1: BP 130-139/80-89. Hypertesnion Stage 2: BP 140 or higher/90 or higher. Hypertension Crisis: BP higher than 180/120 Peak Exercise Blood Pressure:: 136/82 - highest on [employer] Airdyne Bike Outcomes/Goals: Able to verbalize/achieve optimal blood pressure <130/80, Incorporates diet changes & exercise for blood pressure control by DC Interventions/plan: Instruct on optimal blood pressure, hypertension & medications, Instruct on effects of sodium, alcohol, stress, exercise &hypertension 30 day Reassessments:: Met - Tobacco Cessation Referral Smoking Cessation Referral:: No Individual Education/Counseling:: No Education Schedule Given:: Yes Psychosocial - Initial Assess Psychosocial - 30-Day Assess Psychosocial - 60-Day Assess Psychosocial - 90-Day Assess Psychosocial - Final Assessmen - VIsit Date of Eval: 03/03/21 Session #:: 34 Not Applicable: Yes History of previous Mental disease:: No - Psychosocial Test Tool Used:: [employer] QOL Cardiac, PHQ-9 Questionnaire phq-9 Severity: Severity. 1-4 Minimal Depression. 5-9 Mild Depression. 10-14 Moderate Depression. 15-19 Moderately Sever Depression. 20-27 Severe Depression. Rule: - Referral to Behavioral Health PS - Interventions: Yes Attend Stress Management Classes, No Referral to Behavioral Health if PHQ-9 score >9:, No Referral to [facility], No Referral to Physician if PHQ-9 if score is 5-9: - Outcomes/Goals: See list Psychosocial Outcomes/Goals:: ID's personal stressors & 2 strategies to manage stress by discharge - Intervention/Plan: See List Interventions/Plan:: Assess stressors,coping strategies & signs of derpression on admission, Instruct/assist pt to develop coping & personal stress Mgt strategies, Instruct patient to recognize signs & symptoms of depression, In struct patient to recog - 30-day Reassessments: 30 day Reassessments:: Met Patient Health Questionnaire Discharge Assessment 1. Little interest or pleasure in doing things: Not at all 2. Feeling down, depressed, or hopeless: Not at all 3. Trouble falling or staying asleep, or sleeping too much: Several days 4. Feeling tired or having little energy: Not at all 5. Poor appetite or overeating: Not at all 6. Feeling bad about yourself -- or that you are a failure or have let yourself or your family down: Not at all 7. Trouble concentrating on things, such as reading the newspaper or watching television: Not at all 8. Moving or speaking so slowly that other people could have noticed. Or the opposite - being so fidgety or restless that you have been moving around a lot more than usual: Not at all 9. Thoughts that you would be better off , or of hurting yourself in some way: Not at all Total Score: 1 RUSS-Q SV Test - Statements CAD is a disease of the arteries in the heart: False Examples of risk factors for heart disease: True Angina is chest pain or discomfort: True The benefits of resistance training include: True Eating more meat and dairy products: False Anti-platelet medications such as aspirin are important: True The only effective way to manage stress: False An exercise warm-up slowly increases heart rate: True Prepared, processed foods usually have high sodium: True Depression is common after a heart attack: True The statin medications lower cholesterol: True To control blood pressure, lower the amount of sodium: True If someone gets chest discomfort during walking: False Transfats are partially hydrogenated vegetable oils: True Sleep apnea that is not treated increases the risk: False To control cholesterol, one should become a vegetarian: False Someone knows if he/she is exercising at the right level: True Diabetes cannot be prevented with exercise & health eating: False Stress is a large risk for heart attack: True A diet that can help lower blood pressure is rich in: True - Total Score Total Correct Responses: 20 Self-Efficacy Discharge Assessment We would like to know how confident you are in doing certain activities. Please select your confidence level for:: Select your confidence level for the following using the scale 1-10 where 1 is not at all confident and 10 is totally confident. Your score is the average of all 6 responses. Fatigue: How confident are you that you can keep the fatigue caused by your disease from interfering with the things you want to do? Select Number: 10 Physical Discomfort or Pain: How confident are you that you can keep the physical discomfort or pain of your disease from interfering with the things you want to do? Select Number: 10 Emotional Distress: How confident are you that you can keep the emotional distress caused by your disease from interfering with the things you want to do? Select Number: 10 Other Symptoms or Health Problems: How confident are you that you can keep other symptoms or health problems from interfering with the things you want to do? Select Number: 10 Different Tasks and Activities: How confident are you that you can do the different tasks and activities needed to manage your health condition so as to reduce your need to see a doctor? Select Number: 10 Medication: How confident are you that you can do things other than just taking medication to reduce how much your illness affects your everyday life? Select Number: 10 Total Score:: 10 Nutrition Survey - Nutrition Survey Discharge Are you following a special diet at home for diabetes, low fat, or low salt?: No Are you interested in meeting with a dietitian for help understanding your diet?: No - Already met with Nutritional Services Do you eat less than 3 meals a day?: No Do you eat fatty meats (foote, sausage, ribs, etc), fried foods, desserts, large amounts of salad dressings, margarine, butter, or cheese most days?: No Do you have food allergies? [Enter types in comment field]: No Do you eat in restaurants more than 3 times a week?: No
[2021-03-03 09:14] VITALS: BP 104/60; BP 136/82; BMI 36.0
== END 2021-03-12 23:59 ==
LOC: CR 08:00
PROVIDERS: PCP Family Medicine; Referring Provider Internal Medicine Cardiovascular Disease; Visit Provider Internal Medicine Cardiovascular Disease
DX: I35.0 Nonrheumatic aortic (valve) stenosis (principal); I48.11 Longstanding persistent atrial fibrillation; I10 Essential (primary) hypertension; E78.5 Hyperlipidemia, unspecified; K74.60 Unspecified cirrhosis of liver; R79.89 Other specified abnormal findings of blood chemistry; Z95.2 Presence of prosthetic heart valve
CPT/HCPCS: 93798

== ENCOUNTER 2021-03-16 08:00 | Outpatient (RCR) | payer MEDICARE, OTHER, SELFPAY ==
[2021-03-13 00:29] VITALS: BP 104/60; BP 136/82; BMI 38.1
== END 2021-04-12 23:59 ==
LOC: CR 08:00
PROVIDERS: PCP Family Medicine; Referring Provider Internal Medicine Cardiovascular Disease; Visit Provider Internal Medicine Cardiovascular Disease
DX: I35.0 Nonrheumatic aortic (valve) stenosis (principal); I48.11 Longstanding persistent atrial fibrillation; I10 Essential (primary) hypertension; E78.5 Hyperlipidemia, unspecified; K74.60 Unspecified cirrhosis of liver; R79.89 Other specified abnormal findings of blood chemistry; Z95.2 Presence of prosthetic heart valve
CPT/HCPCS: 93798

== ENCOUNTER 2021-03-25 08:42 | Outpatient (RCR) | payer SELFPAY ==
[2021-03-13 00:15] VITALS: BMI 38.1
== END 2021-04-12 23:59 ==
LOC: NS 08:42
PROVIDERS: PCP Family Medicine; Visit Provider Internal Medicine Cardiovascular Disease
DX: Z71.3 Dietary counseling and surveillance (principal); E66.9 Obesity, unspecified; I10 Essential (primary) hypertension; E78.5 Hyperlipidemia, unspecified; G47.33 Obstructive sleep apnea (adult) (pediatric)
CPT/HCPCS: 97802

== ENCOUNTER 2021-04-22 08:41 | Outpatient (RCR) | payer SELFPAY ==
[2021-04-13 00:11] VITALS: BMI 38.1
== END 2021-05-12 23:59 ==
LOC: NS 08:41
PROVIDERS: PCP Family Medicine; Visit Provider Internal Medicine Cardiovascular Disease
DX: Z71.3 Dietary counseling and surveillance (principal); E66.9 Obesity, unspecified; I10 Essential (primary) hypertension; E78.5 Hyperlipidemia, unspecified; G47.33 Obstructive sleep apnea (adult) (pediatric)
CPT/HCPCS: 97803

== ENCOUNTER → 2021-04-23 09:48 | Outpatient (CLI) | payer MEDICARE, OTHER, SELFPAY ==
--- NOTE | 2021-04-23 09:50 | CDU_ITS ---
Reason For Study: Intermittent visual disturbance, eye exam normal Rt. Velocities/BP Lt. Velocities/BP Prox CCA 53.9/13.4 cm/sec. Prox CCA 70.7/22.3 cm/sec. Mid CCA 46/9.5 cm/sec. Mid CCA 48.7/13.5 cm/sec. Dist CCA 39/8.8 cm/sec. Dist CCA 42.1/14.6 cm/sec. Prox ICA 33.3/12.6 cm/sec. Prox ICA 40.9/16.3 cm/sec. Mid ICA 72.1/23 cm/sec. Mid ICA 60.7/23.9 cm/sec. Dist ICA 57.9/18.2 cm/sec. Dist ICA 79.5/39.9 cm/sec. Rt. ICA/CCA = 1.57. Lt. ICA/CCA = 1.63. Prox ECA 67.4/6.9 cm/sec. Prox ECA 78.4/22.3 cm/sec. Rt. Vert. 36.2/11.6 cm/sec. Lt. Vert. 39.5/17.7 cm/sec. Right Extracranial There is intimal thickening but no significant atherosclerotic plaque noted in the right common carotid artery. There is heterogeneous, irregular atherosclerotic plaque noted in the right internal carotid artery. The atherosclerotic plaque causes acoustic shadowing. There is intimal thickening but no significant atherosclerotic plaque noted in the right external carotid artery. Antegrade flow is noted in the right vertebral artery. Left Extracranial There is homogeneous, smooth atherosclerotic plaque noted in the left common carotid artery. There is heterogeneous, irregular atherosclerotic plaque noted in the left internal carotid artery. There is heterogeneous, irregular atherosclerotic plaque noted in the left external carotid artery. Antegrade flow is noted in the left vertebral artery. VL/Carotid Duplex Ultrasound Interpretation Summary Mild calcific plaque in the proximal right internal carotid artery with less th an 50% stenosis Less than 50% stenosis right external carotid artery Calcific plaque with shadowing at the proximal left internal carotid artery wit h less than 50% stenosis Less than 50% stenosis left external carotid artery Patent antegrade vertebral arteries bilaterally Ordering Physician: Crys Interiano Referring Physician: James Hernandez Performed By: Ely Solano RVT
== END ==
PROVIDERS: PCP Family Medicine; Referring Provider Physician Assistant Medical; Visit Provider Physician Assistant Medical
DX: H53.9 Unspecified visual disturbance (principal); R42 Dizziness and giddiness; Z95.2 Presence of prosthetic heart valve
CPT/HCPCS: 93880

== ENCOUNTER 2021-06-03 09:00 | Outpatient (RCR) | payer SELFPAY ==
[2021-05-13 00:16] VITALS: BMI 38.1
== END 2021-06-12 23:59 ==
LOC: NS 09:00
PROVIDERS: PCP Family Medicine; Visit Provider Internal Medicine Cardiovascular Disease
DX: Z71.3 Dietary counseling and surveillance (principal); E66.9 Obesity, unspecified; I10 Essential (primary) hypertension; E78.5 Hyperlipidemia, unspecified; G47.33 Obstructive sleep apnea (adult) (pediatric)
CPT/HCPCS: 97803

== ENCOUNTER 2021-07-03 09:24 | Outpatient (CLI) | payer MEDICARE, OTHER, SELFPAY ==
[2021-07-03 11:24] LABS: AST(SGOT) 63 U/L (15-37); Alanine Aminotransfer ALT/SGPT 73 U/L (16-61); Albumin, Serum 3.8 g/dL (3.2-5.0); Alkaline Phosphatase 138 U/L (45-117); Bilirubin, Direct 0.26 mg/dL (0.00-0.30); Cholesterol 126 mg/dL (200); Globulin 4.4 g/dL (2.2-4.2); High Density Lipoprotein 38 mg/dL; Protein, Total 8.2 g/dL (6.4-8.2); Triglycerides 150 mg/dL; Very Low Density Lipoprotein 30 mg/dL (5-40)
== END 2021-07-03 23:59 | disposition short-term general hospital (02) ==
LOC: LAB 09:27
PROVIDERS: Referring Provider Internal Medicine Cardiovascular Disease; Visit Provider Internal Medicine Cardiovascular Disease
DX: E78.00 Pure hypercholesterolemia, unspecified (principal)
CPT/HCPCS: 36415; 80061; 80076

== ENCOUNTER 2021-08-17 09:54 | Outpatient (CLI) | payer MEDICARE, OTHER, SELFPAY ==
[2021-08-17 15:42] LABS: ALB/GLOB Ratio 0.9 RATIO (0.9-2.4); AST(SGOT) 47 U/L (15-37); Alanine Aminotransfer ALT/SGPT 68 U/L (16-61); Albumin, Serum 3.3 g/dL (3.2-5.0); Alkaline Phosphatase 139 U/L (45-117); Anion Gap 4 (5-15); BUN 16 mg/dL (7-18); BUN/Creat Ratio 21.4 RATIO (10-20); Calcium,Total 8.7 mg/dL (8.5-10.1); Chloride 103 mmol/L (98-107); Cholesterol 96 mg/dL (200); Creatinine, Serum 0.75 mg/dL (0.70-1.30); EST Glomerular Filtration Rate 111 mL/min (>60); Est Glom Filt Rate - Afr Amer 134 mL/min (>60); Globulin 3.7 g/dL (2.2-4.2); Glucose 116 mg/dL (74-106); High Density Lipoprotein 33 mg/dL; Sodium Level 139 mmol/L (136-145); Triglycerides 101 mg/dL; Uric Acid 5.9 mg/dL (3.5-7.2); Very Low Density Lipoprotein 20 mg/dL (5-40)
== END 2021-08-17 23:59 | disposition home or self-care (01) ==
LOC: MFPLAB 09:58
PROVIDERS: Visit Provider Family Medicine
DX: E78.5 Hyperlipidemia, unspecified (principal); K74.60 Unspecified cirrhosis of liver; I48.91 Unspecified atrial fibrillation; M10.9 Gout, unspecified
CPT/HCPCS: 36415; 80053; 80061; 84550

== ENCOUNTER 2021-09-07 08:54 | Outpatient (RCR) | payer SELFPAY ==
[2021-06-13 00:17] VITALS: BMI 38.1
== END 2021-09-10 23:59 ==
LOC: NS 08:54
PROVIDERS: Visit Provider Internal Medicine Cardiovascular Disease
DX: Z71.3 Dietary counseling and surveillance (principal); E66.9 Obesity, unspecified; I10 Essential (primary) hypertension; E78.5 Hyperlipidemia, unspecified; G47.33 Obstructive sleep apnea (adult) (pediatric)
CPT/HCPCS: 97803

== ENCOUNTER → 2022-02-05 | Outpatient (CLI) | payer MEDICARE, OTHER, SELFPAY ==
--- NOTE | 2022-02-05 07:41 | CT_ITS ---
STUDY: CT BRAIN WITH AND WITHOUT CONTRAST REASON FOR EXAM: Male, 66 years old. One-year history of blurred vision. RADIATION DOSAGE (If Supplied By Facility): CTDIvol = ( 44.99 ) mGy, DLP = ( 1749.70 ) mGycm TECHNIQUE: Transaxial CT imaging of the brain was performed pre and post contrast administration. The examination was performed with intravenous administration of IV 50mL Isovue-370. Individualized dose optimization techniques were used for this CT. COMPARISON: None. FINDINGS: Normal soft tissue structures. Normal calvarium. There is mild cerebral atrophy with widening of the extra-axial spaces and ventricular dilatation. There are areas of decreased attenuation within the white matter tracts of the supratentorial brain, consistent with microvascular disease changes. Normal basal ganglia and thalami. Normal brainstem. Normal cerebellum. There is no intracranial hemorrhage. There are no findings of an acute ischemic infarction. Normal visualized paranasal sinuses. CT/Brain/Head W/WO Contrast IMPRESSION: Chronic involutional changes of the brain. Electronically Signed: James aLndaverde MD at 10:14 EDT ,
[2022-02-05 08:15] LABS: CREATININE FINGERSTICK < 0.9 mg/dL (0.70-1.30); EGFR FINGERSTICK > 60.0000 mL/min (>60)
[2022-02-05 09:26] LABS: AST(SGOT) 47 U/L (15-37); Alanine Aminotransfer ALT/SGPT 61 U/L (16-61); Albumin, Serum 3.5 g/dL (3.2-5.0); Alkaline Phosphatase 126 U/L (45-117); Anion Gap 3 (5-15); BUN 20 mg/dL (7-18); BUN/Creat Ratio 24.1 RATIO (10-20); Bilirubin, Direct 0.27 mg/dL (0.00-0.30); Calcium,Total 9.1 mg/dL (8.5-10.1); Chloride 106 mmol/L (98-107); Cholesterol 137 mg/dL (200); Creatinine, Serum 0.83 mg/dL (0.70-1.30); EST Glomerular Filtration Rate 98 mL/min (>60); Est Glom Filt Rate - Afr Amer 118 mL/min (>60); Globulin 3.6 g/dL (2.2-4.2); Glucose 123 mg/dL (74-106); High Density Lipoprotein 38 mg/dL; Potassium 3.9 mmol/L (3.5-5.1); Protein, Total 7.1 g/dL (6.4-8.2); Sodium Level 139 mmol/L (136-145); Triglycerides 150 mg/dL; Very Low Density Lipoprotein 30 mg/dL (5-40)
== END | disposition home or self-care (01) ==
PROVIDERS: PCP Family Medicine; Referring Provider Internal Medicine Cardiovascular Disease; Visit Provider Internal Medicine Cardiovascular Disease
DX: H53.9 Unspecified visual disturbance (principal); R42 Dizziness and giddiness; E78.00 Pure hypercholesterolemia, unspecified; I69.398 Other sequelae of cerebral infarction
CPT/HCPCS: 36415; 70470; 80048; 80061; 80076; Q9967

== ENCOUNTER → 2022-03-15 | Outpatient (CLI) | payer MEDICARE, OTHER, SELFPAY ==
[2022-03-19 15:31] LABS: Acetylcholine Receptor Binding 0.05 nmol/L (0.00-0.24)
== END | disposition home or self-care (01) ==
LOC: MFPLAB 14:53
PROVIDERS: PCP Family Medicine; Referring Provider Family Medicine; Visit Provider Nurse Practitioner Family
DX: H53.2 Diplopia (principal)
CPT/HCPCS: 36415; 84238

== ENCOUNTER → 2023-02-16 | Outpatient (CLI) | payer MEDICARE, OTHER, SELFPAY ==
[2023-02-16 10:37] LABS: ALB/GLOB Ratio 0.9 RATIO (0.9-2.4); AST(SGOT) 44 U/L (15-37); Alanine Aminotransfer ALT/SGPT 51 U/L (16-61); Albumin, Serum 3.4 g/dL (3.2-5.0); Alkaline Phosphatase 127 U/L (45-117); Anion Gap 4 (5-15); BUN 17 mg/dL (7-18); BUN/Creat Ratio 18.5 RATIO (10-20); Calcium,Total 8.9 mg/dL (8.5-10.1); Chloride 108 mmol/L (98-107); Cholesterol 126 mg/dL (200); Creatinine, Serum 0.92 mg/dL (0.70-1.30); EST Glomerular Filtration Rate 87 mL/min (>60); Est Glom Filt Rate - Afr Amer 105 mL/min (>60); Globulin 3.8 g/dL (2.2-4.2); Glucose 117 mg/dL (74-106); High Density Lipoprotein 37 mg/dL; Protein, Total 7.2 g/dL (6.4-8.2); Sodium Level 142 mmol/L (136-145); Triglycerides 133 mg/dL; Very Low Density Lipoprotein 27 mg/dL (5-40)
== END | disposition home or self-care (01) ==
LOC: MFPLAB 08:32
PROVIDERS: PCP Family Medicine; Visit Provider Family Medicine
DX: E78.5 Hyperlipidemia, unspecified (principal)
CPT/HCPCS: 36415; 80053; 80061

== ENCOUNTER → 2023-05-24 | Outpatient (CLI) | payer MEDICARE, OTHER, SELFPAY ==
--- NOTE | 2023-05-24 11:01 | ECHOCS_ITS ---
Reason For Study: TAVR Procedure This was a 2D Doppler, Color Flow transthoracic echocardiogram. The study was technically difficult. Exam performed in department. Left Ventricle Normal LV size. Moderate concentric left ventricular hypertrophy. Left ventricular systolic function is normal. The left ventricular ejection fraction is 60 %. No regional wall motion abnormalities noted. Right Ventricle Normal RV size. Normal systolic function. Atria The left atrium is mildly enlarged. Normal right atrium. Mitral Valve There is mild to moderate mitral annular calcification. Tricuspid Valve Normal tricuspid valve. Mild (1+) tricuspid valve insufficiency. Pulmonary artery systolic pressure is 34 mmHg. Aortic Valve The aortic valve is not well visualized. Pulmonic Valve Normal pulmonic valve. Great Vessels Normal aortic root. The pulmonary artery is normal size. Pericardium/Pleural No pericardial effusion. Medication 22 gauge I.V. with prn adaptor inserted into right arm. Diluted definity 2.5ml given slow IV push to enhance endocardial definition. MMode/2D Measurements & Calculations LVIDd: 4.6 cm IVSd: 1.7 cm LVOT diam: 2.3 cm LVIDs: 2.4 cm LVPWd: 1.6 cm FS: 47.4 % LVOT area: 4.2 cm2 Ao root diam: 3.5 cm LAV(MOD-bp): 76.4 ml LA A4 area: 24.5 cm2 LAV(MOD-bp) Indexed: 30.1 ml/m2 LAV(MOD-sp2): 75.0 ml LAV(MOD-sp4): 77.0 ml LA dimension(2D): 5.2 cm TAPSE: 1.5 cm RA A4 area: 15.9 cm2 Doppler Measurements & Calculations MV E max deidra: 100.0 cm/sec Ao V2 max: 236.4 cm/sec LV V1 max: 119.9 cm/sec Ao max P.5 mmHg LV V1 max P.8 mmHg Ao V2 mean: 163.1 cm/sec LV V1 mean P.1 mmHg Ao mean P.9 mmHg LV V1 mean: 84.0 cm/sec Ao V2 VTI: 45.8 cm LV V1 VTI: 24.4 cm AV (velocity ratio): 0.53 JOSH(I,D): 2.2 cm2 JOSH(V,D): 2.1 cm2 SV(LVOT): 102.4 ml PA V2 max: 164.6 cm/sec TR max deidra: 270.5 cm/sec TR max P.3 mmHg ECHO/Echo Complete W/ Contrast Interpretation Summary Normal LV size. Moderate concentric left ventricular hypertrophy. Left ventricular systolic function is normal. The left ventricular ejection fraction is 60 %. Pulmonary artery systolic pressure is 34 mmHg. Contrast injection was performed. Ordering Physician: James Forrest Referring Physician: Eber Ruffin Performed By: Esthela Ly RDCS
== END | disposition home or self-care (01) ==
LOC: CVS 11:00
PROVIDERS: PCP Family Medicine; Referring Provider Nurse Practitioner Family; Visit Provider Nurse Practitioner Family
DX: Z95.2 Presence of prosthetic heart valve (principal)
CPT/HCPCS: 93306; Q9957; A4216; C8929

== ENCOUNTER → 2023-08-18 | Outpatient (CLI) | payer MEDICARE, OTHER, SELFPAY ==
--- OUTSIDE RECORDS SUMMARY | 2023-08-18 09:31 | XMS RPT_ITS | CCD ---
Author Name Unknown Address [address] [place] [address] Organization [facility] Care Team Providers Care Office Service Coordinator Name Role Phone James Hernandez DO Primary Care Provider Eber Ruffin MD Primary Care Provider Medications Current Medications Medication Drug Class(es) Dates Sig (Normalized) Sig (Original) acetaminophen 500 mg oral tablet (5 sources) Start: 11-24-2020 take 500 mg by mouth every six hours as needed for pain, then take 4000 mg by mouth every twenty-four hours as needed for pain 500 mg, Oral, EVERY 6 HOURS PRN, Pain Mild (1-3), Starting on Tue11/24/20 at 1101 Maximum dose of acetaminophen is 4000 mg from all sources in 24 hours. albuterol 0.417 mg/ml inhalation solution (7 sources) beta2-Adrenergic Agonist Start: 11-24-2020 1.25 mg, Nebulization, EVERY 6 HOURS PRN, Shortness of Breath, Starting on Tue11/24/20 at 1101 Completed/Discontinued Medications Medication Drug Class(es) Dates Sig (Normalized) Sig (Original) iopamidol (ISOVUE-370) 76 % injection 100 mL (1 source) Start: 10-28-2020 End: 10-28-2020 iopamidol (ISOVUE-370) 76 % injection 100 mL perflutren lipid microspheres (DEFINITY) injection 1.65 mg (4 sources) Start: 11-26-2021 End: 11-26-2021 perflutren lipid microspheres (DEFINITY) injection 1.65 mg Problems Problem Classification Problem Date Documented Da te Episodic/Chronic Cardiac dysrhythmias (6 sources) Persistent atrial fibrillation; Translations: [Other persistent atrial fibrillation] Onset: 11-12-2020 11-12-2020 Chronic Essential hypertension (6 sources) Essential hypertension; Translations: [Essential (primary) hypertension] Onset: 11-12-2020 11-12-2020 Chronic Heart valve disorders (15 sources) Aortic valve stenosis; Translations: [Nonrheumatic aortic (valve) stenosis] Onset: 11-12-2020 Chronic Other liver diseases (6 sources) Cirrhosis of liver; Translations: [Unspecified cirrhosis of liver] Onset: 11-12-2020 11-12-2020 Chronic Other lower respiratory disease (1 source) Dyspnea on exertion; Translations: [Dyspnea, unspecified] Episodic Residual codes; unclassified (6 sources) Obstructive sleep apnea syndrome; Translations: [Obstructive sleep apnea (adult) (pediatric)] Onset: 11-12-2020 11-12-2020 Chronic Results Test Name Value Interpretation Reference Range Facil ity Vital Signs Date Time Vital Sign Value Performing Clinician Payton vasquez 11-25-2020 13:00-0400 Heart rate 96 /min Valente Martinez Work Phone: [facility] Work Phone: 11-25-2020 11:25-0400 Body temperature 98.49 [degF] Valente Martinez Work Phone: [facility] Work Phone: 11-25-2020 11:25-0400 Respiratory rate 16 /min Valente Martinez Work Phone: [facility] Work Phone: 11-25-2020 07:28-0400 Diastolic blood pressure 92 mm[Hg] Valente Polanco MD Work Phone: [facility] Work Phone: 11-25-2020 07:28-0400 SaO2% (BldA) [Mass fraction] 96 % Valente Polanco MD Work Phone: [facility] Work Phone: 11-25-2020 07:28-0400 Systolic blood pressure 116 mm[Hg] Valente Polanco MD Work Phone: [facility] Work Phone: 11-24-2020 07:34-0400 Body height 185.4 cm Valente Martinez Work Phone: [facility] Work Phone: 11-24-2020 07:34-0400 Body mass index (BMI) [Ratio] 39.45 kg/m2 Valente Polanco MD Work Phone: [facility] Work Phone: 11-24-2020 07:34-0400 Body weight 135.63 kg Valente Martinez [facility] Phone: [facility] Work Phone: Encounters Encounter Date Encounter Type Care Provider Facility Start: 11-26-2021 End: 11-26-2021 Subsequent hospital visit by physician Crys Valdovinos APRN - INVESTIGATIVE AGENT Work Phone: [facility] [address] Procedures Date Procedure Procedure Detail Performing Clinician Start: 11-26-2021 Echo tthrc r-t 2d w/wom-mode compl spec&colr d Crys Valdovinos STOPPERER ASSEMBLER - INVESTIGATIVE AGENT Work Phone: Start: 01-14-2021 Basic metabolic panel calcium total Crys Valdovinos STOPPERER ASSEMBLER - INVESTIGATIVE AGENT Work Phone: Start: 01-14-2021 Echo tthrc r-t 2d w/wom-mode compl spec&colr d Valente Polanco MD Work Phone: Start: 11-25-2020 Echo tthrc r-t 2d w/wom-mode compl spec&colr d Crys Valdovinos STOPPERER ASSEMBLER - INVESTIGATIVE AGENT Work Phone: Start: 11-25-2020 Ecg routine ecg w/least 12 lds w/i&r Crys Valdovinos STOPPERER ASSEMBLER - INVESTIGATIVE AGENT Work Phone: Start: 11-25-2020 Basic metabolic panel calcium total Crys Valdovinos STOPPERER ASSEMBLER - INVESTIGATIVE AGENT Work Phone: Start: 11-24-2020 Basic metabolic panel calcium total Crys Valdovinos STOPPERER ASSEMBLER - INVESTIGATIVE AGENT Work Phone: Start: 11-24-2020 Ecg routine ecg w/least 12 lds w/i&r Crys Chano Craftel STOPPERER ASSEMBLER - INVESTIGATIVE AGENT Work Phone: Start: 11-24-2020 Echocardiography Valente Martinez Work Phone: Start: 11-24-2020 OPERATIVE REPORT 3m Scanning Start: 11-13-2020 Antibody screen Valente Martinez Work Phone: Start: 11-13-2020 Blood typing serologic abo Valente morgan MD Work Phone: Start: 11-13-2020 Comprehensive metabolic panel Valente Polanco MD Work Phone: Start: 11-13-2020 PROTIME/INR & PTT Valente Martinez Work Phone: Start: 11-13-2020 Radiologic exam chest 2 views Valente Polanco MD Work Phone: Plan of Treatment Date Care Activity Detail Author Start: 12-15-2025 DTaP/Tdap/Td vaccine (2 - Td or Tdap) DTaP/Tdap/Td vaccine (2 - Td or Tdap) [facility] Start: 02-11-2022 Influenza vaccination Flu vacc ine (Season Ended) [facility] Start: 01-14-2022 Creatinine measurement Creatinine mo nitoring [facility] Work Phone: Start: 01-14-2022 Potassium monitoring Potassium monit oring [facility] Work Phone: Start: 11-25-2021 Creatinine measurement Creatinine mo nitoring [facility] Work Phone: Start: 11-25-2021 Potassium monitoring Potassium monit oring [facility] Work Phone: Start: 11-13-2021 Creatinine measurement Creatinine mo nitoring [facility] Work Phone: Start: 11-13-2021 Potassium monitoring Potassium monit oring [facility] Work Phone: Start: 09-22-2021 Creatinine measurement Creatinine mo nitoring [facility] Work Phone: Start: 09-22-2021 Potassium monitoring Potassium monit oring [facility] Work Phone: Start: 05-19-2021 Pneumococcal 65+ yea rs Vaccine (2 - PCV) Pneumococcal 65+ years Vaccine (2 - PCV) [facility] Start: 02-11-2021 Influenza vaccination [facility] Work Phone: Start: 12-25-2020 End: 12-25-2020 Evaluation and management of inpatient 12/25/2020 Office Visit Cardiology Marisol Rivera APRN [facility] [address] [place] [address] [phone] [facility] Start: 12-04-2020 End: 12-04-2020 Evaluation and management of inpatient 12/04/2020 Office Visit Cardiology Marisol Rivera APRN [facility] [address] [place] [address] [phone] [facility] Start: 11-24-2020 End: 11-24-2020 Patient encounter procedure 11/24/2020 Appointment General Surgery Valente Polanco MD [address] [place] [address] [place] [address] [phone] [facility] General Surgery Start: 11-17-2020 End: 11-17-2020 Patient encounter procedure 11/17/2020 Appointment General Surgery Valente Polanco MD [address] [place] [address] [place] [address] [phone] [facility] General Surgery Start: 11-13-2020 End: 11-13-2020 Patient encounter procedure 11/13/2020 Office Visit Cardiology Marisol Rivera APRN [facility] [address] [place] [address] [phone] [facility] Start: 09-26-2020 Annual Wellness Visi t (AWV) Annual Wellness Visit (AWV) [facility] Work Phone: Start: 2019 Pneumococcal 65+ yea rs Vaccine (1 of 1 - PPSV23) Pneumococcal 65+ years Vaccine (1 of 1 - PPSV23) [facility] Work Phone: Start: 2004 Screening for malign ant neoplasm of colon Colon cancer screen colonoscopy [facility] Work Phone: Start: 2004 Shingles Vaccine (1 of 2) Shirley gles Vaccine (1 of 2) [facility] Start: 1999 Screening for malign ant neoplasm of colon [facility] Start: 1994 Diabetes screen Diabetes screen [facility] Work Phone: Start: 1994 Lipid panel Lipid screen [facility] Work Phone: Start: 1994 Prostate specific an tigen measurement Prostate Specific Antigen (PSA) Screening or Monitoring [facility] Start: 1973 DTaP/Tdap/Td vaccine (1 - Tdap) DTaP/Tdap/Td vaccine (1 - Tdap) [facility] Work Phone: Start: 1973 Hepatitis B vaccine (1 of 3 - Risk 3-dose series) Hepatitis B vaccine (1 of 3 - Risk 3-dose series) [facility] Start: 1972 Hepatitis C screening Hepatitis C sc reen [facility] Start: 1966 COVID-19 Vaccine (1) COVID-19 Vaccin e (1) [facility] Work Phone: Start: 1966 Depression Screen Depression Screen [facility] Start: 1964 Lipid panel [facility] Start: 1955 Hepatitis A vaccine (1 of 2 - Risk 2-dose series) Hepatitis A vaccine (1 of 2 - Risk 2-dose series) [facility] Start: 1954 Annual Wellness Visi t (AWV) Annual Wellness Visit (AWV) [facility] Start: 1954 Hepatitis C screening Hepatitis C sc reen [facility] Work Phone: Basic metabolic 2000 panel - Serum or Plasma Basic Metabolic Panel Lab Routine Daily until discontinued starting 11/24/2020, 2 completed [facility] Work Phone: Payers Date Payer Category Payer Medicare MEDICARE MEDICAR E PART A AND B [id number] 2020-Present [phone] [place] [address] [id number] 2020 Unknown [employer] MEDICARE SUPPLEMENT [id number] 2020-Present [phone] [address] [place] [address] [id number] Social History Date Type Detail Facility Start: 09-30-2020 End: 01-14-2021 Tobacco smoking status NHIS Never smoker [facility] Work Phone: Start: 09-30-2020 End: 01-14-2021 Tobacco use and exposure Never used [facility] Start: 09-30-2020 End: 01-14-2021 Alcohol intake Ex-drinker (finding) [facility] Work Phone: Start: 1955 Sex Assigned At Not on file [employer] Work Phone: Exposure to SARS-CoV -2 (event) Not sure [facility] Discharge instructions 11-24-2020 Instructions Note Date & Type Note Facility 11-24-2020 Hospital Discharg e instructions Crys Valdovinos, ALPHONSE - INVESTIGATIVE AGENT - 11/24/2020 - Please call the [facility] with any questions: [phone] -You will have have the following follow up appointments in the [facility]: one week post procedure, one month post procedure with echocardiogram, one year post procedure with echocardiogram. -Wash groin/wrist incision with soap and water, pat dry. Apply bandage for 5 days. If you have a chest incision, you will receive specific instructions from your surgeon regarding care of the incision. -Check incision every day. If you see any changes in the way it looks, call the [facility] at . Look for any of these problems: redness and warmth that does not go away, yellow or green drainage from the wound, fever and chills, numbness in your legs, pain that is getting worse. -It is normal to have a bruise or soft lump in the groin. This will get smaller and go away with time -Do not drive until after your first [facility] Appointment. -Do not lift, push, or pull anything weighing more than 5 lbs or more for one week if you had the procedure through your groin and 4 weeks if you had the procedure through the chest -We strongly encourage a regular exercise program such as cardiac rehabilitation once you have been cleared to resume normal activity. -Eating well is important for your recovery. Eat nutritious foods every day. Please follow a cardiac, 2 gram sodium diet. Please continue to follow any other dietary recommendations provided by your health care provider prior to your valve surgery. -From now on, tell your doctors and health care providers about your heart valve implantation (prosthetic heart valve ). -If you go to the emergency room or are admitted to the hospital during the first year after your procedure, please call the [facility] at -If you have major dental work or other invasive medical procedures (like surgery) you may need to take antibiotics before the dental work or the procedure. Please discuss with your health care provider. - You will need to take blood thinning medications(antiplatelet) after your valve procedure. Generally, this includes aspirin and Eliquis documented in this encounter [facility] Work Phone: Evaluation note Note Date & Type Note Facility documented in this encounter [facility] Work Phone: Evaluation note Note Date & Type Note Facility documented in this encounter [facility] Work Phone: Evaluation note Note Date & Type Note Facility documented in this encounter [facility] Work Phone: Evaluation note Note Date & Type Note Facility documented in this encounter [facility] Work Phone: Evaluation note Note Date & Type Note Facility documented in this encounter [facility] Work Phone: Evaluation note Note Date & Type Note Facility documented in this encounter [facility] Work Phone: Reason for Referral Status Reason Specialty Diagnoses / Procedures Referre d By Contact Referred To Contact Closed Radiology Diagnoses Aortic valve stenosis, etiology of cardiac valve disease unspecified Procedures CTA CHEST ABDOMEN PELVIS W CONTRAST Valente Polanco MD [address] [place] [id number] Status Reason Specialty Diagnoses / Procedures Referre d By Contact Referred To Contact Closed Cardiology Diagnoses Aortic stenosis, severe Procedures ECHO Complete 2D W Doppler W Color Valente Polanco MD [address] [address] Specialty Diagnoses / Procedures Referred By Contac t Referred To Contact Cardiology Diagnoses Aortic valve stenosis, etiology of cardiac valve disease unspecified Procedures ECHO Complete 2D W Doppler W Color Crys Valdovinos, STOPPERER ASSEMBLER - INVESTIGATIVE AGENT [address] [facility] [address] [place] [address] Referral ID Status Reason Start Date Expiration Date Visits Re quested Visits Authorized Closed 11/26/2021 11/26/2022 1 1 Advance Directives No Advanced Directives Records FoundDocuments on File Type Date Recorded Patient Auto Washer Expl anation ACP-Advance Directive 10/28/2020 12:00 AM Documents on File Type Date Recorded Patient Auto Washer Expl anation ACP-Advance Directive 10/28/2020 12:00 AM Latest Code Status on File Code Status Date Activated Date Inactivated Comments Full Code 11/24/2020 11:01 AM Full Code 11/24/2020 7:14 AM 11/24/2020 10:18 AM Latest Code Status on File Code Status Date Activated Date Inactivated Comments Full Code 11/24/2020 11:01 AM 11/25/2020 3:48 PM Latest Code Status on File Code Status Date Activated Date Inactivated Comments Full Code 11/24/2020 11:01 AM 11/25/2020 3:48 PM Full Code 11/24/2020 7:14 AM 11/24/2020 10:18 AM Summary Purpose Family History No Family History Records Found Additional Source Comments Ordered Prescriptions (unrec ognized section and content) Scheduled Active and Recently Administ ered Medications (unrecognized section and content) Continuous Medication Order 11/23/2020 11/24/2020 11/25/2020 0.9 % sodium chloride infusion (CANCELED) Intravenous, at 50 mL/hr, CONTINUOUS, Starting on Tue11/24/20 at 0730, Upon admission to sameday - please start iv if patient does not have iv access., Pre-op (day of surgery) 0748 (New Bag - Provider: Mariano Hawley RN) PRN Medication Order 11/23/2020 11/24/2020 11/25/2020 acetaminophen (TYLENOL) tablet 500 mg 500 mg, Oral, EVERY 6 HOURS PRN, Pain Mild (1-3), Starting on Tue11/24/20 at 1101, Maximum dose of acetaminophen is 4000 mg from all sources in 24 hours. albuterol (ACCUNEB) nebulizer solution 1.25 mg 1.25 mg, Nebulization, EVERY 6 HOURS PRN, Shortness of Breath, Starting on Tue11/24/20 at 1101 bisacodyl (DULCOLAX) EC tablet 5 mg 5 mg, Oral, DAILY PRN, Constipation, Starting on Tue11/24/20 at 1101, First line therapy for constipation., Post-op perflutren lipid microspheres (DEFINITY) injection 1.65 mg 1.65 mg (1.5 mL), Intravenous, IMG ONCE PRN, Other, Suboptimal Echo Image, Starting on Tue11/24/20 at 0735, For 72 hours, Administer up to 1.65 mg via slow IVP for suboptimal echocardiogram enhancement. May administer as concentrated dose or diluted in 8.5 mL of 0.9% sodium chloride for a total volume of 10 mL. May administer as divided doses to reach optimal image enhancement. perflutren lipid microspheres (DEFINITY) injection 1.65 mg 1.65 mg (1.5 mL), Intravenous, IMG ONCE PRN, Other, Suboptimal Echo Image, Starting on Tue11/24/20 at 1101, For 72 hours, Administer up to 1.65 mg via slow IVP for suboptimal echocardiogram enhancement. May administer as concentrated dose or diluted in 8.5 mL of 0.9% sodium chloride for a total volume of 10 mL. May administer as divided doses to reach optimal image enhancement. 1104 (Given - Provid er: Wojciech Lemus RN) sodium chloride flush 0.9 % injection 5-40 mL 5-40 mL, Intravenous, PRN, Line Care, Per Fire Official Request, Starting on Tue11/24/20 at 0735, For 72 hours, May use order for Line Care after every IV line use and Agitated Saline Bubble Study. Administration for Bubble Study per database software technician request for only. Remove 1 mL 0.9% sodium chloride from 10 mL syringe for creating agitated saline. If following IV push medication, administer flush at same rate as the IV push. Flush volume is determined by type of infusion therapy being given. , For non-viscous solutions use: Peripheral IV = 5 mL Midline or Central Line = 10 mL/lumen For viscous solutions (i.e. blood components, parenteral nutrition, contrast media, or after obtaining blood sample) use: Peripheral IV = 10 mL Midline or Central Line = 20 mL/lumen sodium chloride flush 0.9 % injection 5-40 mL 5-40 mL, Intravenous, PRN, Line Care, Per Fire Official Request, Starting on Tue11/24/20 at 1101, For 72 hours, May use order for Line Care after every IV line use and Agitated Saline Bubble Study. Administration for Bubble Study per database software technician request for only. Remove 1 mL 0.9% sodium chloride from 10 mL syringe for creating agitated saline. If following IV push medication, administer flush at same rate as the IV push. Flush volume is determined by type of infusion therapy being given. , For non-viscous solutions use: Peripheral IV = 5 mL Midline or Central Line = 10 mL/lumen For viscous solutions (i.e. blood components, parenteral nutrition, contrast media, or after obtaining blood sample) use: Peripheral IV = 10 mL Midline or Central Line = 20 mL/lumen Linked Groups Order Group 1: lisinopril (PRINIVIL;ZESTRIL) tablet 10 mgJump to med 10 mg, Oral, DAILY, First dose on Tue11/24/20 at 1130
Hold operative day for SBP less than 120
And hydroCHLOROthiazide (HYDRODIURIL) tablet 12.5 mgJump to med 12.5 mg, Oral, DAILY, First dose on Tue11/24/20 at 1130
Hold operative day for SBP less than 120
Care Teams (unrecognized sec tion and content) (unrecognized sect ion and content) No Status Records Found INFORMATION SOURCE (unrecogn ized section and content) FOR RECORDS PERTAINING TO PATIENTS WHO ARE OR HAVE BEEN ENROLLED IN A CHEMICAL DEPENDENCY/SUBSTANCEABUSE PROGRAM, SOME INFORMATION MAY BE OMITTED. This clinical summary was aggregated from multiple sources. Caution should be exercised in using it in the provision of clinical care. This summary normalizes information from multiple sources, and as a consequence, information in this document may materially change the coding, format and clinical context of patient data. In addition, data may be omitted in some cases. CLINICAL DECISIONS SHOULD BE BASED ON THE PRIMARY CLINICAL RECORDS. [facility] [employer] [facility]. provides no warranty or guarantee of the accuracy or completeness of information in this document.
[2023-08-18 11:23] LABS: ALB/GLOB Ratio 0.9 RATIO (0.9-2.4); AST(SGOT) 58 U/L (15-37); Alanine Aminotransfer ALT/SGPT 61 U/L (16-61); Albumin, Serum 3.6 g/dL (3.2-5.0); Alkaline Phosphatase 141 U/L (45-117); Anion Gap 10 (5-15); BUN 16 mg/dL (7-18); BUN/Creat Ratio 17.4 RATIO (10-20); Calcium,Total 9.1 mg/dL (8.5-10.1); Chloride 104 mmol/L (98-107); Cholesterol 132 mg/dL (200); Creatinine, Serum 0.92 mg/dL (0.70-1.30); EST Glomerular Filtration Rate 87 mL/min (>60); Est Glom Filt Rate - Afr Amer 105 mL/min (>60); Globulin 4.2 g/dL (2.2-4.2); Glucose 118 mg/dL (74-106); High Density Lipoprotein 37 mg/dL; PSA,Total - Annual Screen 0.18 ng/mL (0.00-4.00); Potassium 4.1 mmol/L (3.5-5.1); Protein, Total 7.8 g/dL (6.4-8.2); Sodium Level 139 mmol/L (136-145); Triglycerides 134 mg/dL; Very Low Density Lipoprotein 27 mg/dL (5-40)
== END | disposition home or self-care (01) ==
LOC: MFPLAB 08:57
PROVIDERS: PCP Family Medicine; Visit Provider Family Medicine
DX: K74.60 Unspecified cirrhosis of liver (principal); I48.91 Unspecified atrial fibrillation; I10 Essential (primary) hypertension; Z12.5 Encounter for screening for malignant neoplasm of prostate
CPT/HCPCS: 36415; 80053; 80061; 84153; G0103

== ENCOUNTER → 2023-10-14 | Outpatient (CLI) | payer MEDICARE, OTHER, SELFPAY ==
[2023-10-14 12:41] LABS: Absolute Lymphocyte Count 1.29 X10^3/uL (0.83-4.51); Absolute Neutrophil Count 4.6 X10^3/uL (2.0-7.7); Basophil# 0.02 X10^3/uL; Basophil% 0.3 % (0-1); Eosinophil# 0.11 X10^3/uL; Eosinophils% 1.7 % (0-5); Hematocrit 44.2 % (40-54); Hemoglobin 14.1 g/dL (13.0-16.5); Lymphocyte # 1.29 X10^3/ul (0.83-4.51); Lymphocyte % 19.5 % (19-41); Mean Corp Hgb Conc 31.9 g/dL (32-36); Mean Corpuscular Hgb 29.3 pg (27.0-32.0); Mean Corpuscular Volume 91.9 fL (80-94); Mean Platelet Vol. 11.1 fl (6.2-12.0); Monocyte# 0.53 X10^3/uL; NRBC Flagged by Analyzer 0 % (0-5); Neutrophil # 4.64 X10^3/uL (2.7-7.7); Neutrophil % 70.3 % (47-70); Platelet Count 157 K/mm3 (150-450); RBC Distribution Width CV 13.7 % (11.6-14.6); RBC Distribution Width SD 46.9 fl (35.1-43.9); Red Blood Count 4.81 M/mm3 (4.6-6.2); White Blood Count 6.6 K/mm3 (4.4-11.0)
[2023-10-14 13:02] LABS: ALB/GLOB Ratio 0.9 RATIO (0.9-2.4); AST(SGOT) 45 U/L (15-37); Alanine Aminotransfer ALT/SGPT 52 U/L (16-61); Albumin, Serum 3.5 g/dL (3.2-5.0); Alkaline Phosphatase 134 U/L (45-117); Anion Gap 2 (5-15); BUN 21 mg/dL (7-18); Calcium,Total 8.8 mg/dL (8.5-10.1); Chloride 106 mmol/L (98-107); Creatinine, Serum 0.96 mg/dL (0.70-1.30); EST Glomerular Filtration Rate 83 mL/min (>60); Est Glom Filt Rate - Afr Amer 100 mL/min (>60); Globulin 3.8 g/dL (2.2-4.2); Glucose 108 mg/dL (74-106); Magnesium 1.9 mg/dL (1.6-2.6); Protein, Total 7.3 g/dL (6.4-8.2); Sodium Level 140 mmol/L (136-145); Thyroid Stim Hormone (TSH) 1.95 uIU/mL (0.358-3.74)
== END | disposition home or self-care (01) ==
LOC: MTLAB 11:09
PROVIDERS: PCP Family Medicine; Referring Provider Nurse Practitioner Family; Visit Provider Nurse Practitioner Family
DX: R42 Dizziness and giddiness (principal); I48.11 Longstanding persistent atrial fibrillation; H53.9 Unspecified visual disturbance
CPT/HCPCS: 36415; 80053; 83735; 84443; 85025

== ENCOUNTER → 2023-10-24 | Outpatient (CLI) | payer MEDICARE, OTHER, SELFPAY | END | disposition home or self-care (01) | LOC: PSN 07:11 | PROVIDERS: PCP Family Medicine; Referring Provider Nurse Practitioner Family; Visit Provider Nurse Practitioner Family | DX: R42 Dizziness and giddiness (principal); I48.11 Longstanding persistent atrial fibrillation; H53.9 Unspecified visual disturbance | CPT/HCPCS: 93225; 93226 ==

== ENCOUNTER → 2024-02-16 | Outpatient (CLI) | payer MEDICARE, OTHER, SELFPAY ==
[2024-02-16 11:05] LABS: ALB/GLOB Ratio 0.9 RATIO (0.9-2.4); AST(SGOT) 49 U/L (15-37); Alanine Aminotransfer ALT/SGPT 50 U/L (16-61); Albumin, Serum 3.4 g/dL (3.2-5.0); Alkaline Phosphatase 142 U/L (45-117); Anion Gap 6 (5-15); BUN 17 mg/dL (7-18); BUN/Creat Ratio 19.9 RATIO (10-20); Calcium,Total 9.1 mg/dL (8.5-10.1); Chloride 106 mmol/L (98-107); Cholesterol 126 mg/dL (200); Creatinine, Serum 0.86 mg/dL (0.70-1.30); EST Glomerular Filtration Rate 94 mL/min (>60); Est Glom Filt Rate - Afr Amer 114 mL/min (>60); Globulin 3.9 g/dL (2.2-4.2); Glucose 125 mg/dL (74-106); High Density Lipoprotein 42 mg/dL; Protein, Total 7.3 g/dL (6.4-8.2); Sodium Level 140 mmol/L (136-145); Triglycerides 100 mg/dL; Very Low Density Lipoprotein 20 mg/dL (5-40)
== END | disposition home or self-care (01) ==
LOC: MFPLAB 08:31
PROVIDERS: PCP Family Medicine; Visit Provider Family Medicine
DX: K74.60 Unspecified cirrhosis of liver (principal); E78.5 Hyperlipidemia, unspecified
CPT/HCPCS: 36415; 80053; 80061

== ENCOUNTER → 2024-04-04 | Outpatient (CLI) | payer MEDICARE, OTHER, SELFPAY ==
--- NOTE | 2024-04-04 11:03 | RAD_ITS ---
STUDY: X-RAY CHEST REASON FOR EXAM: Male, 69 years old. SOB TECHNIQUE: Frontal and lateral views of the chest. COMPARISON: 09/22/2020. FINDINGS: There is hyperinflation of the lungs consistent with chronic obstructive lung disease (COPD). No infiltrates or effusions. There is no demonstrated pleural abnormality. Normal size heart. There is an aortic valve stent graft in grossly satisfactory position. Normal mediastinum and mason. Normal visualized pulmonary arteries. Normal visualized aortic arch and descending thoracic aorta. There are diffuse degenerative changes of the visualized thoracic spine. Normal visualized ribs, clavicles, and shoulders. There is no demonstrated abnormality of the visualized soft tissue structures of the upper abdomen. RAD/Chest PA and Lateral IMPRESSION: There are findings consistent with COPD. There is no evidence of acute chest disease. Electronically Signed: Juan Carlisle MD at 23:58 EDT ,
[2024-04-04 11:51] LABS: Absolute Neutrophil Count 5.5 X10^3/uL (2.0-7.7); Basophil# 0.04 X10^3/uL; Basophil% 0.5 % (0-1); Eosinophil# 0.08 X10^3/uL; Eosinophils% 1.1 % (0-5); Hematocrit 41.2 % (40-54); Hemoglobin 13.2 g/dL (13.0-16.5); Lymphocyte % 16.1 % (19-41); Mean Corpuscular Hgb 28.9 pg (27.0-32.0); Mean Corpuscular Volume 90.4 fL (80-94); Mean Platelet Vol. 10.6 fl (6.2-12.0); Monocyte# 0.58 X10^3/uL; Monocyte% 7.8 % (0-10); NRBC Flagged by Analyzer 0 % (0-5); Neutrophil # 5.54 X10^3/uL (2.7-7.7); Neutrophil % 74.1 % (47-70); Platelet Count 191 K/mm3 (150-450); RBC Distribution Width CV 13.7 % (11.6-14.6); RBC Distribution Width SD 45.5 fl (35.1-43.9); Red Blood Count 4.56 M/mm3 (4.6-6.2); White Blood Count 7.5 K/mm3 (4.4-11.0)
[2024-04-04 12:34] LABS: BNP,B-Type NATRIURETIC PEPTIDE 101.1 pg/mL (0-100)
[2024-04-04 13:06] LABS: AST(SGOT) 46 U/L (15-37); Alanine Aminotransfer ALT/SGPT 50 U/L (16-61); Albumin, Serum 3.9 g/dL (3.2-5.0); Alkaline Phosphatase 148 U/L (45-117); Anion Gap 6 (5-15); BUN 30 mg/dL (7-18); BUN/Creat Ratio 31.5 RATIO (10-20); Calcium,Total 9.2 mg/dL (8.5-10.1); Chloride 105 mmol/L (98-107); Creatinine, Serum 0.95 mg/dL (0.70-1.30); EST Glomerular Filtration Rate 83 mL/min (>60); Est Glom Filt Rate - Afr Amer 101 mL/min (>60); Globulin 3.9 g/dL (2.2-4.2); Glucose 121 mg/dL (74-106); Magnesium 2.2 mg/dL (1.6-2.6); Potassium 4.5 mmol/L (3.5-5.1); Protein, Total 7.8 g/dL (6.4-8.2); Sodium Level 139 mmol/L (136-145)
== END | disposition home or self-care (01) ==
LOC: RAD 11:01
PROVIDERS: PCP Family Medicine; Referring Provider Nurse Practitioner Family; Visit Provider Nurse Practitioner Family
DX: R06.02 Shortness of breath (principal); I48.11 Longstanding persistent atrial fibrillation; I10 Essential (primary) hypertension
CPT/HCPCS: 36415; 71046; 80053; 83735; 83880; 85025

== ENCOUNTER → 2024-04-06 | Outpatient (CLI) | payer MEDICARE, OTHER, SELFPAY ==
--- NOTE | 2024-04-06 07:45 | ECHOCS_ITS ---
Reason For Study: Dyspnea/SOB Procedure This was a 2D Doppler, Color Flow transthoracic echocardiogram. The study was technically difficult. Contrast injection was performed. Exam performed in department. Left Ventricle Normal LV size. Moderate concentric left ventricular hypertrophy. Left ventricular systolic function is normal. The left ventricular ejection fraction is 60 %. Mid cavitary dynamic gradient 15 mm/Hg. No regional wall motion abnormalities noted. Right Ventricle Normal RV size. Normal systolic function. Atria The left atrium is severely enlarged. The right atrium is moderately enlarged. Mitral Valve There is mild mitral annular calcification. Tricuspid Valve Normal tricuspid valve. Mild (1+) tricuspid valve insufficiency. Pulmonary artery systolic pressure is 30 mmHg. Aortic Valve Peak aortic valve gradient 27 mmHg. Mean aortic valve gradient 15 mmHg. Bioprosthetic aortic valve. Pulmonic Valve Normal pulmonic valve. Great Vessels Normal aortic root. The pulmonary artery is normal size. Inferior vena cava collapse with respiration. Pericardium/Pleural No pericardial effusion. Medication 22 gauge I.V. with prn adaptor inserted into right arm. Diluted definity 1.5ml given slow IV push to enhance endocardial definition. MMode/2D Measurements & Calculations LVIDd: 5.3 cm IVSd: 1.5 cm LVOT diam: 2.3 cm LVIDs: 3.9 cm LVPWd: 1.3 cm RVDd: 4.3 cm FS: 26.8 % LVOT area: 4.2 cm2 Ao root diam: 3.4 cm LAV(MOD-bp): 110.4 ml LA A4 area: 31.2 cm2 LAV(MOD-bp) Indexed: 43.8 ml/m2 LAV(MOD-sp2): 103.8 ml LAV(MOD-sp4): 115.3 ml LA dimension(2D): 5.9 cm TAPSE: 1.8 cm RA A4 area: 23.3 cm2 Doppler Measurements & Calculations MV E max deidra: 101.9 cm/sec MV V2 max: 134.5 cm/sec Ao V2 max: 260.4 cm/sec MV max P.2 mmHg Ao max P.2 mmHg MV V2 mean: 53.8 cm/sec Ao V2 mean: 183.5 cm/sec MV mean P.7 mmHg Ao mean P.4 mmHg MV V2 VTI: 27.1 cm Ao V2 VTI: 60.6 cm MVA(VTI): 2.9 cm2 AV (velocity ratio): 0.31 JOSH(I,D): 1.3 cm2 JOSH(V,D): 1.2 cm2 LV V1 max: 76.3 cm/sec SV(LVOT): 79.5 ml PA V2 max: 182.1 cm/sec LV V1 max P.3 mmHg PA max PG (full): 9.6 mmHg LV V1 mean P.2 mmHg LV V1 mean: 50.5 cm/sec LV V1 VTI: 18.9 cm TR max deidra: 253.9 cm/sec TR max P.8 mmHg ECHO/Echo Complete W/ Contrast Interpretation Summary Normal LV size. Left ventricular systolic function is normal. The left ventricular ejection fraction is 60 %. Moderate concentric left ventricular hypertrophy. Pulmonary artery systolic pressure is 30 mmHg. Bioprosthetic aortic valve. Mean aortic valve gradient 15 mmHg. Mid cavitary dynamic gradient 15 mm/Hg. Contrast injection was performed. Ordering Physician: James Forrest Referring Physician: James Forrest Performed By: Rafael Peralta RCS
--- OUTSIDE RECORDS SUMMARY | 2024-04-06 07:46 | XMS RPT_ITS | CCD ---
Author Organization [facility] Care Team Providers Care Glass Belt Sander Name Role Phone James Hernandez DO Primary [...] of Breath, Starting on Tue11/24/20 at 1101 ALBUTEROL SULFAT E IN Inhale into the lungs every 6 hours as needed 0 Active ALPRAZolam 0.5 mg oral tablet (6 sources) Benzodiazepine take 1 tablet by mouth twice daily as needed for sleep ALPRAZolam (XANAX) 0.5 MG tablet Take 0.5 mg by mouth 2 times daily as needed for Sleep. 0 Active apixaban 5 mg oral tablet (7 sources) Factor Xa Inhibitor Start: 2020 End: 2020 apixaban (ELIQUIS) 5 MG TABS tablet Take 1 tablet by mouth 2 times daily Resume 11/25 evening 60 tablet 1 11/25/2020 Active aspirin 81 mg delayed release oral tablet (6 sources) Platelet Aggregation Inhibitor, Nonsteroidal Anti-inflammatory Drug Start: 2020 End: 2020 aspirin 81 MG EC tablet Take 1 tablet by mouth daily Take for 3 months and then stop 30 tablet 3 11/25/2020 Active atorvastatin 20 mg oral tablet (6 sources) HMG-CoA Reductase Inhibitor Start: 2020 take 20 mg by mouth once daily 20 mg, Oral, DAILY, First dose on Tue11/24/20 at 2100 bisacodyl 5 mg delayed release oral tablet (1 source) Stimulant Laxative Start: 2020 take 5 mg by mouth once daily as needed for constipation 5 mg, Oral, DAILY PRN, Constipation, Starting on Tue11/24/20 at 1101 First line therapy for constipation. Post-op cholecalciferol 0.05 mg oral capsule (4 sources) Vitamin D Cholecalciferol (VITAMIN D) 50 MCG (1999) CAPS capsule Take by mouth 0 Active clopidogrel 75 mg oral tablet (2 sources) P2Y12 Platelet Inhibitor Start: 2020 take 75 mg by mouth once daily 75 mg, Oral, DAILY, First dose on Tue11/25/20 at 0900 Start: 11-24-2020 End: 11-24-2020 take 300 mg by mouth once 300 mg, Oral, ONCE, On Tue at 1130, For 1 dose, Post-op hydroCHLOROthiazide 12.5 mg / lisinopril 10 mg oral tablet (6 sources) Thiazide Diuretic, Angiotensin Converting Enzyme Inhibitor take 1 tablet by mouth once daily lisinopril-hydroCHLOROthiazide (PRINZIDE;ZESTORETIC) 10-12.5 MG per tablet Take 1 tablet by mouth daily 0 Active Lisinopril (1 source) Angiotensin Converting Enzyme Inhibitor Star t: 11-11 lisinopril (PRINIVIL;ZESTRIL ) tablet 10 mg 24 hr metoprolol succinate 50 mg extended release oral tablet (7 sources) beta-Adrenergic Trever Star t: 11-11 take 50 mg by mouth once daily 50 mg, Oral, NIGHTLY, First dose on Tue11/24/20 at 2100 Do not crush or chew. Multiple Vitamins-Minerals (THERAPEUTIC MULTIVITAMIN-MINERALS) tablet (5 sources) take 1 tablet by mouth once daily Multiple Vitamins-Minerals (THERAPEUTIC MULTIVITAMIN-MINERALS) tablet Take 1 tablet by mouth daily 0 Active pantoprazole 40 mg delayed release oral tablet (1 source) Proton Pump Inhibitor Star t: 11-11 take 40 mg by mouth once daily 40 mg, Oral, DAILY, First dose on Tue11/24/20 at 1130 Do not crush or break. Post-op 3 ml sodium chloride 9 mg/ml injection (3 sources) Star t: 11-11 End: 11-11 5-40 mL, Intravenous, PRN, L ine Care, Per Tab Cutting Machine Operator Request, Starting on Tue11/24/20 at 1101, For 72 hours May use order for Line Care after every IV line use and Agitated Saline Bubble Study. Administration for Bubble Study per installation supervisor request for only. Remove 1 mL 0.9% sodium chloride from 10 mL syringe for creating agitated saline. If following IV push medication, administer flush at same rate as the IV push. Flush volume is determined by type of infusion therapy being given. For non-viscous solutions use: Peripheral IV = 5 mL Midline or Central Line = 10 mL/lumen For viscous solutions (i.e. blood components, parenteral nutrition, contrast media, or after obtaining blood sample) use: Peripheral IV = 10 mL Midline or Central Line = 20 mL/lumen Start: 11-24-2020 End: 11-27-2020 sodium chloride flush 0.9 % injection 5-40 mL Start: 11-24-2020 End: 11-25-2020 0.9 % sodium chloride infusi on Completed/Discontinued Medications Medication Drug Class(es) Dates Sig (Normalized) Sig (Original) iopamidol (ISOVUE-370) 76 % injection 100 mL (1 source) Start: 10-28-2020 End: 10-28-2020 iopamidol (ISOVUE-370) 76 % injection 100 mL perflutren lipid microspheres (DEFINITY) injection 1.65 mg (4 sources) Start: 11-26-2021 End: 11-26-2021 perflutren lipid microspheres (DEFINITY) injection 1.65 mg Start: 01-14-2021 End: 01-17-2021 perflutren lipid microsphere s (DEFINITY) injection 1.65 mg Start: 11-24-2020 End: 11-27-2020 1.65 mg (1.5 mL), Intravenou s, IMG ONCE PRN, Other, Suboptimal Echo Image, Starting on 11/24/20 at 1101, For 72 hours Administer up to 1.65 mg via slow IVP for suboptimal echocardiogram enhancement. May administer as concentrated dose or diluted in 8.5 mL of 0.9% sodium chloride for a total volume of 10 mL. May administer as divided doses to reach optimal image enhancement. Start: 11-24-2020 End: 11-27-2020 perflutren lipid microsphere s (DEFINITY) injection 1.65 mg Problems Problem Classification [...] Results Test Name Value Interpretation Reference Range Facility ECHO Complete 2D W Doppler W [place] 11-26-2021 TRANSTHORACIC ECHOCARDIOGRAM PATIENT: Casey Sosa STUDY DATE: 11/26/2021 : 1955 AGE: 66 HT/WT: 182.9 cm (72 127.5 kg in) (280.4 lb) GENDER: M BP: 112 / 70 LOCATION: [place] [address] PATIENT Outpatient [facility] STATUS: *ORDERING PHYSICIAN: * Crys Church *READING PHYSICIAN: * Kaitlyn Gaytan, *STRIP CATCHER: * MD Briana Macedo INDICATIONS: S/p TAVR. CONCLUSIONS SUMMARY: 1. Technically difficult study. 2. Left ventricle: Systolic function is normal by visual assessment. The estimated ejection fraction is 65%. 3. Right ventricle: The cavity size is normal. Systolic function is mildly decreased. 4. Left atrium: The atrium is mildly dilated. 5. Right atrium: The atrium is mildly dilated. 6. Aortic valve: Prior repair procedures include transcatheter aortic valve replacement. There is a 26 mm BIOPROSTHETIC VALVE prosthesis (Ornelas Raissa). The mean systolic gradient is 10 mm Hg. Dimensionless index: 0.34. STUDY DATA: Complete transthoracic echocardiogram. Procedure: Image quality was suboptimal. The study was technically limited due to poor acoustic window availability, body habitus, and respiratory interference. Intravenous imaging enhancement (Definity) was administered to opacify the chamber. Definity lot #: [id number]. M-mode, complete 2D, complete spectral Doppler, and color flow Doppler images were acquired and archived for permanent storage and are available for subsequent review. Study status: Routine. Patient status: Outpatient. ECG RHYTHM: Atrial fibrillation FINDINGS LEFT VENTRICLE: The cavity size is normal. Wall thickness is normal. Systolic function is normal by visual assessment. The estimated ejection fraction is 65%. There are no regional wall motion abnormalities. Unable to assess LV diastolic function due to atrial fibrillation RIGHT VENTRICLE: The cavity size is normal. Systolic function is mildly decreased. Right ventricular systolic pressure is within the normal range. VENTRICULAR SEPTUM: There is no evidence of a ventricular septal defect. There is no evidence of a ventricular septal defect. LEFT ATRIUM: The atrium is mildly dilated. RIGHT ATRIUM: The atrium is mildly dilated. ATRIAL SEPTUM: Color Doppler shows no shunt. There is no atrial level shunt. MITRAL VALVE: Not well visualized. Moderately calcified annulus. Normal (thickness) leaflets. Doppler: There is trivial, less than 1+ regurgitation. AORTIC VALVE: The aortic valve prosthesis is well seated. Not well visualized. Prior repair procedures include transcatheter aortic valve replacement. There is a 26 mm BIOPROSTHETIC VALVE prosthesis (Ornelas Raissa). Normal thickness leaflets. Doppler: There is no significant regurgitation. Dimensionless index: 0.34. The valve area by the velocity-time integral method is 1.5 cm^2. The valve area index by the velocity-time integral method is 0.6 cm^2/m^2. The mean systolic gradient is 10 mm Hg. The peak systolic gradient is 19 mm Hg. The peak systolic velocity is 2.2 m/sec. TRICUSPID VALVE: Not well visualized. Structurally normal valve. Normal thickness leaflets. Doppler: There is trivial, less than 1+ regurgitation. PULMONIC VALVE: Structurally normal valve. Normal thickness leaflets. Doppler: There is trivial, less than 1+ regurgitation. AORTA: The aorta is normal. PULMONARY ARTERY: Main pulmonary artery: Normal. Normal. PERICARDIUM: There is no pericardial effusion. SYSTEMIC VEINS: Inferior vena cava: The vessel is dilated. The IVC collapses by greater than 50% with inspiration. Measurements Left ventricle Value 01/14/2021 Reference Stroke volume/bsa, 1-p A2C 11.2 ml/m^2 28.3 LV end-diastolic volume, 84 ml 108 69 - 185 1-p A4C LV end-systolic volume, 1-p 34 ml 24 22 - 78 A4C LV end-diastolic volume, 77 ml 110 62 - 150 2-p LV end-systolic volume, 2-p 39 ml 28 21 - 61 LV ejection fraction, 2-p (L) 50 % 75 52 - 72 LVOT Value 01/14/2021 Reference LVOT ID, A-P 2.4 cm 1.9 LVOT mean velocity, S (more content not included)... [facility]ARD[facility] Kaitlyn Gaytan MD - 11/26/2021 TRANSTHORACIC ECHOCARDIOGRAM PATIENT: Casey Sosa STUDY DATE: 11/26/2021 : 1955 AGE: 66 HT/WT: 182.9 cm (72 127.5 kg in) (280.4 lb) GENDER: M BP: 112 / 70 LOCATION: [place] [address] PATIENT Outpatient [facility] STATUS: *ORDERING PHYSICIAN: * Crys Church *READING PHYSICIAN: * Kaitlyn Gaytan, *STRIP CATCHER: * MD Briana Macedo INDICATIONS: S/p TAVR. CONCLUSIONS SUMMARY: 1. Technically difficult study. 2. Left ventricle: Systolic function is normal by visual assessment. The estimated ejection fraction is 65%. 3. Right ventricle: The cavity size is normal. Systolic function is mildly decreased. 4. Left atrium: The atrium is mildly dilated. 5. Right atrium: The atrium is mildly dilated. 6. Aortic valve: Prior repair procedures include transcatheter aortic valve replacement. There is a 26 mm BIOPROSTHETIC VALVE prosthesis (Ornelas Raissa). The mean systolic gradient is 10 mm Hg. Dimensionless index: 0.34. STUDY DATA: Complete transthoracic echocardiogram. Procedure: Image quality was suboptimal. The study was technically limited due to poor acoustic window availability, body habitus, and respiratory interference. Intravenous imaging enhancement (Definity) was administered to opacify the chamber. Definity lot #: [id number]. M-mode, complete 2D, complete spectral Doppler, and color flow Doppler images were acquired and archived for permanent storage and are available for subsequent review. Study status: Routine. Patient status: Outpatient. ECG RHYTHM: Atrial fibrillation FINDINGS LEFT VENTRICLE: The cavity size is normal. Wall thickness is normal. Systolic function is normal by visual assessment. The estimated ejection fraction is 65%. There are no regional wall motion abnormalities. Unable to assess LV diastolic function due to atrial fibrillation RIGHT VENTRICLE: The cavity size is normal. Systolic function is mildly decreased. Right ventricular systolic pressure is within the normal range. VENTRICULAR SEPTUM: There is no evidence of a ventricular septal defect. There is no evidence of a ventricular septal defect. LEFT ATRIUM: The atrium is mildly dilated. RIGHT ATRIUM: The atrium is mildly dilated. ATRIAL SEPTUM: Color Doppler shows no shunt. There is no atrial level shunt. MITRAL VALVE: Not well visualized. Moderately calcified annulus. Normal (thickness) leaflets. Doppler: There is trivial, less than 1+ regurgitation. AORTIC VALVE: The aortic valve prosthesis is well seated. Not well visualized. Prior repair procedures include transcatheter aortic valve replacement. There is a 26 mm BIOPROSTHETIC VALVE prosthesis (Ornelas Raissa). Normal thickness leaflets. Doppler: There is no significant regurgitation. Dimensionless index: 0.34. The valve area by the velocity-time integral method is 1.5 cm^2. The valve area index by the velocity-time integral method is 0.6 cm^2/m^2. The mean systolic gradient is 10 mm Hg. The peak systolic gradient is 19 mm Hg. The peak systolic velocity is 2.2 m/sec. TRICUSPID VALVE: Not well visualized. Structurally normal valve. Normal thickness leaflets. Doppler: There is trivial, less than 1+ regurgitation. PULMONIC VALVE: Structurally normal valve. Normal thickness leaflets. Doppler: There is trivial, less than 1+ regurgitation. AORTA: The aorta is normal. PULMONARY ARTERY: Main pulmonary artery: Normal. Normal. PERICARDIUM: There is no pericardial effusion. SYSTEMIC VEINS: Inferior vena cava: The vessel is dilated. The IVC collapses by greater than 50% with inspiration. Measurements Left ventricle Value 01/14/2021 Reference Stroke volume/bsa, 1-p A2C 11.2 ml/m^2 28.3 LV end-diastolic volume, 84 ml 108 69 - 185 1-p A4C LV end-systolic volume, 1-p 34 ml 24 22 - 78 A4C LV end-diastolic volume, 77 ml 110 62 - 150 2-p LV end-systolic volume, 2-p 39 ml 28 21 - 61 LV ejection fraction, 2-p (L) 50 % 75 52 - 72 LVOT Value 01/14/2021 Reference LVOT ID, A-P 2.4 cm 1.9 LVOT mean velocity, S 0.5 m/sec 0.7 LVOT peak gradient, S 2 mm Hg 3 Stroke volume (SV), LVOT DP 66 ml 54 Stroke index (SV/bsa), LVOT 25 ml/m^2 21 DP Aortic valve Value 01/14/2021 Reference Aortic valve peak velocity, 2.2 m/sec 2.2 S Aortic valve mean velocity, 1.5 m/sec 1.5 S Aortic mean gradient, S 10 mm Hg 1 (more content not included)... [employer] Work Phone: ECHO Complete 2D W Doppler W ColorOrdered By: Kaitlyn Gaytan on 11-26-2021 [employer] Work Phone: Echo Complete w/wo Contrasto n 11-26-2021 Echo Complete w/wo Contrast Patient Name: CASEY SOSA Ultrasound ACCESSION EXAM DATE/TIME PROCEDURE ORDERING PROVIDER [id number] 11/26/2021 09:33 EDT Echo Complete w/wo ZOFIA CHURCH, CRYS Contrast Reason For Exam (Echo Complete w/wo Contrast) one yr post TAVR Report TRANSTHORACIC ECHOCARDIOGRAM PATIENT: Casey Sosa STUDY DATE: 11/26/2021 : 1955 AGE: 66 HT/WT: 182.9 cm (72 127.5 kg in) (280.4 lb) GENDER: M BP: 112 / 70 LOCATION: [place] PATIENT Outpatient [address] STATUS: *ORDERING PHYSICIAN: * Crys Church *READING PHYSICIAN: * Kaitlyn Gaytan, *STRIP CATCHER: * MD Briana Macedo INDICATIONS: S/p TAVR. CONCLUSIONS SUMMARY: 1. Technically difficult study. 2. Left ventricle: Systolic function is normal by visual assessment. The estimated ejection fraction is 65%. 3. Right ventricle: The cavity size is normal. Systolic function is mildly decreased. 4. Left atrium: The atrium is mildly dilated. 5. Right atrium: The atrium is mildly dilated. 6. Aortic valve: Prior repair procedures include transcatheter aortic valve replacement. There is a 26 mm BIOPROSTHETIC VALVE prosthesis (Ornelas Raissa). The mean systolic gradient is 10 mm Hg. Dimensionless index: 0.34. STUDY DATA: Complete transthoracic echocardiogram. Procedure: Image quality was suboptimal. The study was technically limited due to poor acoustic window availability, body habitus, and respiratory interference. Intravenous imaging enhancement (Definity) was administered to opacify the chamber. Definity lot #: [id number]. M-mode, complete 2D, complete spectral Doppler, and color flow Doppler images were acquired and archived for permanent storage and are available for subsequent review. Study status: Routine. Patient status: Outpatient. ECG RHYTHM: Atrial fibrillation Ultrasound Report FINDINGS LEFT VENTRICLE: The cavity size is normal. Wall thickness is normal. Systolic function is normal by visual assessment. The estimated ejection fraction is 65%. There are no regional wall motion abnormalities. Unable to assess LV diastolic function due to atrial fibrillation RIGHT VENTRICLE: The cavity size is normal. Systolic function is mildly decreased. Right ventricular systolic pressure is within the normal range. VENTRICULAR SEPTUM: There is no evidence of a ventricular septal defect. There is no evidence of a ventricular septal defect. LEFT ATRIUM: The atrium is mildly dilated. RIGHT ATRIUM: The atrium is mildly dilated. ATRIAL SEPTUM: Color Doppler shows no shunt. There is no atrial level shunt. MITRAL VALVE: Not well visualized. Moderately calcified annulus. Normal (thickness) leaflets. Doppler: There is trivial, less than 1+ regurgitation. AORTIC VALVE: The aortic valve prosthesis is well seated. Not well visualized. Prior repair procedures include transcatheter aortic valve replacement. There is a 26 mm BIOPROSTHETIC VALVE prosthesis (Ornelas Raissa). Normal thickness leaflets. Doppler: There is no significant regurgitation. Dimensionless index: 0.34. The valve area by the velocity-time integral method is 1.5 cm^2. The valve area index by the velocity-time integral method is 0.6 cm^2/m^2. The mean systolic gradient is 10 mm Hg. The peak systolic gradient is 19 mm Hg. The peak systolic velocity is 2.2 m/sec. TRICUSPID VALVE: Not well visualized. Structurally normal valve. Normal thickness leaflets. Doppler: There is trivial, less than 1+ regurgitation. PULMONIC VALVE: Structurally normal valve. Normal thickness leaflets. Doppler: There is trivial, less than 1+ regurgitation. AORTA: The aorta is normal. PULMONARY ARTERY: Main pulmonary artery: Normal. Normal. PERICARDIUM: There is no pericardial effusion. SYSTEMIC VEINS: Inferior vena cava: The vessel is dilated. The IVC collapses by greater than 50% with inspiration. Measurements Left ventricle Value 01/14/2021 Reference Stroke volume/bsa, 1-p A2C 11.2 ml/m^2 28.3 LV end-diastolic volume, 84 ml 108 69 - 185 1-p A4C LV end-systolic volume, 1-p 34 ml 24 22 - 78 A4C LV end-diastolic volume, 77 ml 110 62 - 150 2-p LV end-systolic volume, 2-p 39 ml 28 21 - 61 LV ejection fraction, 2-p (L) 50 % 75 52 - 72 LVOT Value 01/14/2021 Reference LVOT ID, A-P 2.4 cm 1.9 LVOT mean velocity, S 0.5 m/sec 0.7 LVOT peak gradient, S 2 mm Hg 3 Stroke volume (SV), LVOT DP 66 ml 54 Stroke index (SV/bsa), LVOT 25 ml (more content not included)... Normal [facility] Basic Metabolic Panelon Calcium [Mass/Vol] 9.2 mg/dL Normal 8.4-10.4 [facility] Comment on above: Performed By: #### B MP3, HEMOG #### [facility] [address], [place] Glucose [Mass/Vol] 83 mg/dL Normal 70-100 [facility] Comment on above: Performed By: #### Patrica MP3, HEMOG #### [facility] [address], [place] Urea nitrogen [Mass/Vol] 33 mg/dL High 7-20 [facility] Comment on above: Performed By: #### Patrica MP3, HEMOG #### [facility] [address], [place] Anion gap [Moles/Vol] 6 mmol/L Normal 3-13 [facility] Comment on above: Performed By: #### B MP3, HEMOG #### [facility] [address], [place] CO2 [Moles/Vol] 29 mmol/L Normal 22-30 [facility] Comment on above: Performed By: #### B MP3, HEMOG #### [facility] [address], [place] Creatinine [Mass/Vol] 0.89 mg/dL Normal 0.52-1.25 [facility] Comment on above: Performed By: #### Patrica MP3, HEMOG #### [facility] [address] [place] [address] GFR/1.73 sq M.predicted among blacks MDRD (S/P/Bld) [Vol rate/Area] mL/min/{1.73_m2} Normal >60 [facility] Comment on above: Performed By: #### B MP3, HEMOG #### [facility] [address] [place] [address] GFR/1.73 sq M.predicted among non-blacks MDRD (S/P/Bld) [Vol rate/Area] 88.6 mL/min/{1.73_m2} Normal >60 [facility] Comment on above: Result Comment: KDIG O guidelines provide the following GFR categories: Stage GFR(ml/min/1.73 m2) Terms G1 >=90 Normal or high G2 60-89 Mildly decreased* G3a 45-59 Mildly to moderately decreased G3b 30-44 Moderately to severely decreased G4 15-29 Severely decreased G5 <15 Kidney failure *Relative to young adult level. In the absence of evidence of kidney damage, neither GFR category G1 nor G2 fulfill the criteria for CKD. The CKD-EPI equation is validated in individuals 18 years of age and older. Currently the best equation for estimating glomerular filtration rate (GFR) from serum creatinine in children is the Bedside Andrade equation. It is less accurate in patients with extremes of muscle mass, restriction of dietary protein, ingestion of creatine, extra-renal metabolism of creatinine, or treatment with medications that affect renal tubular creatinine secretion. Performed By: #### B MP3, HEMOG #### [place] [address] [place] [address] Chloride [Moles/Vol] 101 mmol/L Normal 98-107 [facility] Comment on above: Performed By: #### B MP3, HEMOG #### [place] [address] [place], [place] Potassium [Moles/Vol] 5.1 mmol/L Normal 3.5-5.1 [facility] Comment on above: Result Comment: Slig htly hemolysed, interpret with caution. Performed By: #### B MP3, HEMOG #### [address] [address] Sodium [Moles/Vol] 137 mmol/L Normal 135-145 [facility] [facility] Comment on above: Performed By: #### B MP3, HEMOG #### [facility] [address] [facility] [place] [address] Basic Metabolic PanelOrdered By: Crys Church on 01-14-2021 Anion gap [Moles/Vol] 6 mmol/L 3 - 13 mmol/L [facility] Work Phone: Calcium [Mass/Vol] 9.2 mg/dL 8.4 - 10. 4 mg/dL [facility] Work Phone: Chloride [Moles/Vol] 101 mmol/L 98 - 10 7 mmol/L [facility] Work Phone: CO2 [Moles/Vol] 29 mmol/L 22 - 30 mmol/L [facility] Work Phone: Creatinine [Mass/Vol] 0.89 mg/dL 0.52 - 1.25 mg/dL [facility] Work Phone: EGFR IF NonAfrican Angolan 88.6 mL/min >60 [facility] Work Phone: Comment on above: KDIGO guidelines pro vide the following GFR categories: Stage GFR(ml/min/1.73 m2) Terms G1 >=90 Normal or high G2 60-89 Mildly decreased* G3a 45-59 Mildly to moderately decreased G3b 30-44 Moderately to severely decreased G4 15-29 Severely decreased G5 <15 Kidney failure *Relative to young adult level. In the absence of evidence of kidney damage, neither GFR category G1 nor G2 fulfill the criteria for CKD. The CKD-EPI equation is validated in individuals 18 years of age and older. Currently the best equation for estimating glomerular filtration rate (GFR) from serum creatinine in children is the Bedside Andrade equation. It is less accurate in patients with extremes of muscle mass, restriction of dietary protein, ingestion of creatine, extra-renal metabolism of creatinine, or treatment with medications that affect renal tubular creatinine secretion. GFR/1.73 sq M.predicted among blacks MDRD (S/P/Bld) [Vol rate/Area] mL/min/{1.73_m2} >60 mL/min [facility] Work Phone: Glucose [Mass/Vol] 83 mg/dL 70 - 100 mg/dL [facility] Work Phone: Interpretation and review of laboratory results Abnormal [employer] Work Phone: Potassium [Moles/Vol] 5.1 mmol/L 3.5 - 5.1 mmol/L [facility] Work Phone: Comment on above: Slightly hemolysed, interpret with caution. Sodium [Moles/Vol] 137 mmol/L 135 - 145 mmol/L [facility] Work Phone: Urea nitrogen (BldV) [Mass/Vol] 33 mg/dL High 7 - 20 mg/dL [facility] Work Phone: Test Performed by [employer] [address] [facility] Work Phone: [facility] Work Phone: CBCOrdered By: Crys arguello on 01-14-2021 Hematocrit (Bld) [Volume fraction] 41.5 % 40.0 - 52.0 % [facility] Work Phone: Hemoglobin.gastrointesti nal spec 1 Ql (Stl) 14.2 g/dL 13.0 - 18.0 g/dL [facility] Work Phone: Interpretation and review of laboratory results Abnormal [facility] Work Phone: MCH (RBC) [Entitic mass] 32.5 pg 26. 0 - 34.0 pg [facility] Work Phone: MCHC (RBC) [Mass/Vol] 34.2 % 32.0 - 36.0 % [facility] Work Phone: MCV (RBC) [Entitic vol] 95.3 fL 80.0 - 98.0 fL [facility] Work Phone: Platelet distribution width (Bld) [Ratio] 13.9 % 11.5 - 14.5 % [employer] Work Phone: Platelet mean volume (Bld) [Entitic vol] 9.7 fL 7.4 - 10.4 fL [facility] Work Phone: Platelets (Bld) [#/Vol] 138 10*3/uL Low 140 - 440 10*3/uL [employer] Work Phone: RBC (Bld) [#/Vol] 4.36 10*6/uL Low 4.40 - 5.9 0 10*6/uL [employer] Work Phone: WBC (Bld) [#/Vol] 6.9 10*3/uL 3.6 - 10.7 10*3/uL [employer] Work Phone: Test Performed by [facility], [address] [place] [id number] [employer] Work Phone: [employer] Work Phone: ECHO Complete 2D W Doppler W ColorOrdered By: Valente Polanco on 01-14-2021 TRANSTHORACIC ECHOCARDIOGRAM PATIENT: Casey Sosa STUDY DATE: 01/14/2021 : 1955 AGE: 65 HT/WT: 185.4 cm (73 127.5 kg in) (280.4 lb) GENDER: M BP: 112 / 70 LOCATION: [facility] PATIENT Outpatient [facility] [place] STATUS: *ORDERING PHYSICIAN: * Valente Polanco MD *RN: * Apple Fowler RN *READING PHYSICIAN: * Fatemeh Grove *STRIP CATCHER: * Myra Serrano MD RD, AE INDICATIONS: S/P TAVR. CONCLUSIONS SUMMARY: 1. Left ventricle: Systolic function is normal by the biplane method of disks. The estimated ejection fraction is 75%. There are no regional wall motion abnormalities. 2. Right ventricle: Right ventricular systolic pressure is within the normal range. 3. Aortic valve: Prior repair procedures include transcatheter aortic valve replacement. There is a 26 mm Raissa S3 valve bioprosthesis well seated in the aortic position. There is no significant paravalvular regurgitation. The peak systolic velocity is 2.2 m/sec. The mean systolic gradient is 10 mm Hg. Dimensionless index: 0.45. 4. Technically difficult study. STUDY DATA: Complete transthoracic echocardiogram. Procedure: Image quality was suboptimal. The study was technically limited due to poor acoustic window availability and body habitus. Intravenous imaging enhancement (Definity) was administered to opacify the chamber. Definity lot #: [id number]. M-mode, complete 2D, complete spectral Doppler, and color flow Doppler images were acquired and archived for permanent storage and are available for subsequent review. Study status: Routine. Patient status: Outpatient. FINDINGS LEFT VENTRICLE: The cavity size is normal. Wall thickness is normal. Systolic function is normal by the biplane method of disks. The estimated ejection fraction is 75%. There are no regional wall motion abnormalities. RIGHT VENTRICLE: The cavity size is normal. Systolic function is normal. Right ventricular systolic pressure is within the normal range. VENTRICULAR SEPTUM: There is no evidence of a ventricular septal defect. LEFT ATRIUM: The atrium is moderately dilated. RIGHT ATRIUM: The atrium is normal in size. ATRIAL SEPTUM: Color Doppler shows no shunt. MITRAL VALVE: Not well visualized. Structurally normal valve. Normal (thickness) leaflets. Doppler: There is no significant regurgitation. AORTIC VALVE: Not well visualized. Prior repair procedures include transcatheter aortic valve replacement. There is a 26 mm Raissa S3 valve bioprosthesis well seated in the aortic position. Normal thickness leaflets. Doppler: There is no significant paravalvular regurgitation. Dimensionless index: 0.45. The valve area by the velocity-time integral method is 2.0 cm^2. The valve area index by the velocity-time integral method is 0.8 cm^2/m^2. The mean systolic gradient is 10 mm Hg. The peak systolic gradient is 19 mm Hg. The peak systolic velocity is 2.2 m/sec. TRICUSPID VALVE: Not well visualized. Structurally normal valve. Normal thickness leaflets. Doppler: There is trivial, less than 1+ regurgitation. PULMONIC VALVE: Structurally normal valve. Normal thickness leaflets. Doppler: There is trivial, less than 1+ regurgitation. AORTA: The aorta is normal. PULMONARY ARTERY: Main pulmonary artery: Normal. PERICARDIUM: There is no pericardial effusion. SYSTEMIC VEINS: Inferior vena cava: The vessel is normal and normal in size. The IVC collapses by greater than 50% with inspiration. Measurements Value 11/25/2020 Reference Ascending aorta ID 3.4 cm 2.2 - 3.8 Ascending aorta ID/bsa, 1.3 cm/m^2 1.1 - 1.9 A-P Ascending aorta ID, A-P, 3.4 cm S Ascending aorta ID/bsa, 1.3 cm/m^2 A-P, S Left ventricle Value 11/25/2020 Reference LV ID, ED 4.8 cm 5.0 4.2 - 5.8 LV ID, ES 2.5 cm 3.4 2.5 - 4.0 LV ID/bsa, ED (L) 1.8 cm/m^2 1.9 2.2 - 3.0 LV ID/bsa, ES (L) 1.0 cm/m^2 1.3 1.3 - 2.1 LV PW thickness, ED (H) 1.2 cm 1.4 0.6 - 1.0 LV PW/LV ID ratio, ED 0.25 (more content not included)... [employer] Work Phone: Boby, [facility] Incoming [facility] 01/14/2021 4:46 PM EDT TRANSTHORACIC ECHOCARDIOGRAM PATIENT: Casey Sosa STUDY DATE: 01/14/2021 : 1955 AGE: 65 HT/WT: 185.4 cm (73 127.5 kg in) (280.4 lb) GENDER: M BP: 112 / 70 LOCATION: [place] [address] [address] STATUS: *ORDERING PHYSICIAN: * Valente Polanco MD *RN: * Apple Fowler RN *READING PHYSICIAN: * Fatemeh Grove *STRIP CATCHER: * Myra Serrano MD [facility], AE INDICATIONS: S/P TAVR. CONCLUSIONS SUMMARY: 1. Left ventricle: Systolic function is normal by the biplane method of disks. The estimated ejection fraction is 75%. There are no regional wall motion abnormalities. 2. Right ventricle: Right ventricular systolic pressure is within the normal range. 3. Aortic valve: Prior repair procedures include transcatheter aortic valve replacement. There is a 26 mm Raissa S3 valve bioprosthesis well seated in the aortic position. There is no significant paravalvular regurgitation. The peak systolic velocity is 2.2 m/sec. The mean systolic gradient is 10 mm Hg. Dimensionless index: 0.45. 4. Technically difficult study. STUDY DATA: Complete transthoracic echocardiogram. Procedure: Image quality was suboptimal. The study was technically limited due to poor acoustic window availability and body habitus. Intravenous imaging enhancement (Definity) was administered to opacify the chamber. Definity lot #: [id number]. M-mode, complete 2D, complete spectral Doppler, and color flow Doppler images were acquired and archived for permanent storage and are available for subsequent review. Study status: Routine. Patient status: Outpatient. FINDINGS LEFT VENTRICLE: The cavity size is normal. Wall thickness is normal. Systolic function is normal by the biplane method of disks. The estimated ejection fraction is 75%. There are no regional wall motion abnormalities. RIGHT VENTRICLE: The cavity size is normal. Systolic function is normal. Right ventricular systolic pressure is within the normal range. VENTRICULAR SEPTUM: There is no evidence of a ventricular septal defect. LEFT ATRIUM: The atrium is moderately dilated. RIGHT ATRIUM: The atrium is normal in size. ATRIAL SEPTUM: Color Doppler shows no shunt. MITRAL VALVE: Not well visualized. Structurally normal valve. Normal (thickness) leaflets. Doppler: There is no significant regurgitation. AORTIC VALVE: Not well visualized. Prior repair procedures include transcatheter aortic valve replacement. There is a 26 mm Raissa S3 valve bioprosthesis well seated in the aortic position. Normal thickness leaflets. Doppler: There is no significant paravalvular regurgitation. Dimensionless index: 0.45. The valve area by the velocity-time integral method is 2.0 cm^2. The valve area index by the velocity-time integral method is 0.8 cm^2/m^2. The mean systolic gradient is 10 mm Hg. The peak systolic gradient is 19 mm Hg. The peak systolic velocity is 2.2 m/sec. TRICUSPID VALVE: Not well visualized. Structurally normal valve. Normal thickness leaflets. Doppler: There is trivial, less than 1+ regurgitation. PULMONIC VALVE: Structurally normal valve. Normal thickness leaflets. Doppler: There is trivial, less than 1+ regurgitation. AORTA: The aorta is normal. PULMONARY ARTERY: Main pulmonary artery: Normal. PERICARDIUM: There is no pericardial effusion. SYSTEMIC VEINS: Inferior vena cava: The vessel is normal and normal in size. The IVC collapses by greater than 50% with inspiration. Measurements Value 11/25/2020 Reference Ascending aorta ID 3.4 cm 2.2 - 3.8 Ascending aorta ID/bsa, 1.3 cm/m^2 1.1 - 1.9 A-P Ascending aorta ID, A-P, 3.4 cm S Ascending aorta ID/bsa, 1.3 cm/m^2 A-P, S Left ventricle Value 11/25/2020 Reference LV ID, ED 4.8 cm 5.0 4.2 - 5.8 LV ID, ES 2.5 cm 3.4 2.5 - 4.0 LV ID/bsa, ED (L) 1.8 cm/m^2 1.9 2.2 - 3.0 LV ID/bsa, ES (L) 1.0 cm/m^2 1.3 1.3 - 2.1 LV PW thickness, ED (H) 1.2 cm 1.4 0.6 - 1.0 LV PW/LV ID ratio, ED 0.25 0.28 LV wall mass 193 g 271 96 - 200 LV wall mass/bsa 74 g/m^2 100 50 - 102 Stroke volume/bsa, 1-p 28.3 ml/m^2 A2C LV end-diastolic volume, 108 ml 69 - 185 1-p A4C LV end-systolic volume, 24 ml 22 - 78 1-p A4C LV end-diastolic volume, 110 ml 62 - 150 2-p LV end (more content not included)... [employer] Work Phone: [employer] Work Phone: Echo Complete w/wo Contrasto n 01-14-2021 Echo Complete w/wo Contrast Patient Name: CASEY SOSA Ultrasound ACCESSION EXAM DATE/TIME PROCEDURE ORDERING PROVIDER [id number] 01/14/2021 16:22 EDT Echo Complete w/wo MD POLANCO PETER Contrast Reason For Exam (Echo Complete w/wo Contrast) s/p TAVR Report TRANSTHORACIC ECHOCARDIOGRAM PATIENT: Casey Sosa STUDY DATE: 01/14/2021 [facility]#: [id number] : 1955 AGE: 65 HT/WT: 185.4 cm (73 127.5 kg in) (280.4 lb) GENDER: M BP: 112 / 70 LOCATION: [employer] PATIENT Outpatient [address] STATUS: *ORDERING PHYSICIAN: * Valente Polanco MD *RN: * Apple Fowler RN *READING PHYSICIAN: * Fatemeh Grove *STRIP CATCHER: * Myra Serrano MD RDCS, AE INDICATIONS: S/P TAVR. CONCLUSIONS SUMMARY: 1. Left ventricle: Systolic function is normal by the biplane method of disks. The estimated ejection fraction is 75%. There are no regional wall motion abnormalities. 2. Right ventricle: Right ventricular systolic pressure is within the normal range. 3. Aortic valve: Prior repair procedures include transcatheter aortic valve replacement. There is a 26 mm Raissa S3 valve bioprosthesis well seated in the aortic position. There is no significant paravalvular regurgitation. The peak systolic velocity is 2.2 m/sec. The mean systolic gradient is 10 mm Hg. Dimensionless index: 0.45. 4. Technically difficult study. STUDY DATA: Complete transthoracic echocardiogram. Procedure: Image quality was suboptimal. The study was technically limited due to poor acoustic window availability and body habitus. Intravenous imaging enhancement (Definity) was administered to opacify the chamber. Definity lot #: [id number]. M-mode, complete 2D, complete spectral Doppler, and color flow Doppler images were acquired and archived for permanent storage and are available for subsequent review. Study status: Routine. Patient status: Outpatient. Ultrasound Report FINDINGS LEFT VENTRICLE: The cavity size is normal. Wall thickness is normal. Systolic function is normal by the biplane method of disks. The estimated ejection fraction is 75%. There are no regional wall motion abnormalities. RIGHT VENTRICLE: The cavity size is normal. Systolic function is normal. Right ventricular systolic pressure is within the normal range. VENTRICULAR SEPTUM: There is no evidence of a ventricular septal defect. LEFT ATRIUM: The atrium is moderately dilated. RIGHT ATRIUM: The atrium is normal in size. ATRIAL SEPTUM: Color Doppler shows no shunt. MITRAL VALVE: Not well visualized. Structurally normal valve. Normal (thickness) leaflets. Doppler: There is no significant regurgitation. AORTIC VALVE: Not well visualized. Prior repair procedures include transcatheter aortic valve replacement. There is a 26 mm Raissa S3 valve bioprosthesis well seated in the aortic position. Normal thickness leaflets. Doppler: There is no significant paravalvular regurgitation. Dimensionless index: 0.45. The valve area by the velocity-time integral method is 2.0 cm^2. The valve area index by the velocity-time integral method is 0.8 cm^2/m^2. The mean systolic gradient is 10 mm Hg. The peak systolic gradient is 19 mm Hg. The peak systolic velocity is 2.2 m/sec. TRICUSPID VALVE: Not well visualized. Structurally normal valve. Normal thickness leaflets. Doppler: There is trivial, less than 1+ regurgitation. PULMONIC VALVE: Structurally normal valve. Normal thickness leaflets. Doppler: There is trivial, less than 1+ regurgitation. AORTA: The aorta is normal. PULMONARY ARTERY: Main pulmonary artery: Normal. PERICARDIUM: There is no pericardial effusion. SYSTEMIC VEINS: Inferior vena cava: The vessel is normal and normal in size. The IVC collapses by greater than 50% with inspiration. Measurements Value 11/25/2020 Reference Ascending aorta ID 3.4 cm 2.2 - 3.8 Ascending aorta ID/bsa, 1.3 cm/m^2 1.1 - 1.9 A-P Ascending aorta ID, A-P, 3.4 cm S Ascending aorta ID/bsa, 1.3 cm/m^2 A-P, S Left ventricle Value 11/25/2020 Reference LV ID, ED 4.8 cm 5.0 4.2 - 5.8 LV ID, ES 2.5 cm 3.4 2.5 - 4.0 LV ID/bsa, ED (L) 1.8 cm/m^2 1.9 2.2 - 3.0 LV ID/bsa, ES (L) 1.0 cm/m^2 1.3 1.3 - 2.1 LV PW thickness, ED (H) 1.2 cm 1.4 0.6 - 1.0 LV PW/LV ID ratio, ED 0.25 0.28 LV wall mass 193 g 271 96 - 200 LV wall mass/bsa 74 g/m^2 100 50 - 102 Stroke volume/bsa, 1-p 28.3 ml/m^2 A2C LV end-diastolic volume, 108 m (more content not included)... Normal [facility] Hemogramon 01-14-2021 Erythrocyte distribution width (RBC) [Ratio] 13.9 % Normal 11.5-14.5 [facility] Comment on above: Performed By: #### Patrica MARCANO3, HEMOG #### [facility] [employer] [address] Hematocrit (Bld) [Volume fraction] 41.5 % Normal 40.0-52.0 [facility] Comment on above: Performed By: #### Patrica MP3, HEMOG #### [facility] [address] Hemoglobin (Bld) [Mass/Vol] 14.2 g/dL Normal 13.0-18.0 [facility] Comment on above: Performed By: #### Patrica MP3, HEMOG #### [facility] [address] [place], [place] MCH (RBC) [Entitic mass] 32.5 pg Normal 26.0-34.0 [facility] Comment on above: Performed By: #### B MP3, HEMOG #### [place] [address] [address] [place], [place] MCHC 34.2 % Normal 32.0-36.0 [facility] Comment on above: Performed By: #### B MP3, HEMOG #### [place] [address] [address] [place], [place] MCV (RBC) [Entitic vol] 95.3 fL Normal 80.0-98.0 [facility] Comment on above: Performed By: #### B MP3, HEMOG #### [place] [address] [address] [place], [place] Platelet mean volume (Bld) [Entitic vol] 9.7 fL Normal 7.4-10.4 [facility] Comment on above: Performed By: #### B MP3, HEMOG #### [place] [address] [address] [place], [place] Platelets (Bld) [#/Vol] 138 10*3/uL Low 140-440 [facility] Comment on above: Performed By: #### B MP3, HEMOG #### [place] [address] [address] [place], [place] RBC (Bld) [#/Vol] 4.36 10*6/uL Low 4.40-5.90 [facility] Comment on above: Performed By: #### B MP3, HEMOG #### [place] [address] [address] [place], [place] WBC (Bld) [#/Vol] 6.9 10*3/uL Normal 3.6-10.7 [facility] Comment on above: Performed By: #### B MP3, HEMOG #### [place] [address] [address] [place], [place] Basic Metabolic PanelOrdered By: Crys Church on 11-25-2020 Anion gap [Moles/Vol] 7 mmol/L 3 - 13 mmol/L [facility] Work Phone: Calcium [Mass/Vol] 8.5 mg/dL 8.4 - 10. 4 mg/dL [facility] Work Phone: Chloride [Moles/Vol] 101 mmol/L 98 - 10 7 mmol/L [facility] Work Phone: CO2 [Moles/Vol] 26 mmol/L 22 - 30 mmol/L [facility] Work Phone: Creatinine [Mass/Vol] 0.84 mg/dL 0.52 - 1.25 mg/dL [facility] Work Phone: EGFR IF NonAfrican [place]olan >90.0 >60 mL/min [facility] Work Phone: Comment on above: KDIGO guidelines pro vide the following GFR categories: Stage GFR(ml/min/1.73 m2) Terms G1 >=90 Normal or high G2 60-89 Mildly decreased* G3a 45-59 Mildly to moderately decreased G3b 30-44 Moderately to severely decreased G4 15-29 Severely decreased G5 <15 Kidney failure *Relative to young adult level. In the absence of evidence of kidney damage, neither GFR category G1 nor G2 fulfill the criteria for CKD. The CKD-EPI equation is validated in individuals 18 years of age and older. Currently the best equation for estimating glomerular filtration rate (GFR) from serum creatinine in children is the Bedside Andrade equation. It is less accurate in patients with extremes of muscle mass, restriction of dietary protein, ingestion of creatine, extra-renal metabolism of creatinine, or treatment with medications that affect renal tubular creatinine secretion. GFR/1.73 sq M.predicted among blacks MDRD (S/P/Bld) [Vol rate/Area] mL/min/{1.73_m2} >60 mL/min [facility] Work Phone: Glucose [Mass/Vol] 102 mg/dL High 70 - 100 mg/dL [facility] Work Phone: Interpretation and review of laboratory results Abnormal [facility] Work Phone: Potassium [Moles/Vol] 3.8 mmol/L 3.5 - 5.1 mmol/L [facility] Work Phone: Sodium [Moles/Vol] 135 mmol/L 135 - 145 mmol/L [facility] Work Phone: Urea nitrogen (BldV) [Mass/Vol] 26 mg/dL High 7 - 20 mg/dL [employer] Work Phone: Test Performed by [employer] [address] [address] [employer] Work Phone: [employer] Work Phone: CBCOrdered By: Crys arguello on 11-25-2020 Hematocrit (Bld) [Volume fraction] 39.9 % Low 40.0 - 52.0 % [employer] Work Phone: Hemoglobin.gastrointesti nal spec 1 Ql (Stl) 13.8 g/dL 13.0 - 18.0 g/dL [employer] Work Phone: Interpretation and review of laboratory results Abnormal [employer] Work Phone: MCH (RBC) [Entitic mass] 32.1 pg 26. 0 - 34.0 pg [employer] Work Phone: MCHC (RBC) [Mass/Vol] 34.6 % 32.0 - 36.0 % [employer] Work Phone: MCV (RBC) [Entitic vol] 92.9 fL 80.0 - 98.0 fL [employer] Work Phone: Platelet distribution width (Bld) [Ratio] 13.5 % 11.5 - 14.5 % [employer] Work Phone: Platelet mean volume (Bld) [Entitic vol] 9.0 fL 7.4 - 10.4 fL [employer] Work Phone: Platelets (Bld) [#/Vol] 103 10*3/uL Low 140 - 440 10*3/uL [employer] Work Phone: RBC (Bld) [#/Vol] 4.30 10*6/uL Low 4.40 - 5.9 0 10*6/uL [employer] Work Phone: WBC (Bld) [#/Vol] 7.2 10*3/uL 3.6 - 10.7 10*3/uL [employer] Work Phone: Test Performed by [facility], [address] [place] [address] [employer] Work Phone: [employer] Work Phone: ECHO Complete 2D W Doppler W ColorOrdered By: Crys Church on 11-25-2020 TRANSTHORACIC ECHOCARDIOGRAM PATIENT: Casey Sosa STUDY DATE: 11/25/2020 : 1955 AGE: 65 HT/WT: 188 cm (74 135.6 kg (298.4 in) lb) GENDER: M BP: 150 / 100 LOCATION: [employer] [facility] PATIENT Inpatient main STATUS: *ORDERING PHYSICIAN: * Crys Church *READING PHYSICIAN: * Nik *STRIP CATCHER: * Ilan Haddad RDCS, MD AE INDICATIONS: TAVR, Post 1 day.. CONCLUSIONS SUMMARY: 1. Procedure narrative: Image quality was suboptimal. The study was technically limited due to body habitus, off axis, and supine position. Intravenous imaging enhancement (Definity) was administered to opacify the chamber. Definity lot #: [id number]. 2. Left ventricle: There is mild concentric hypertrophy. Systolic function is normal by visual assessment. The estimated ejection fraction is 55%. There are no regional wall motion abnormalities. 3. Aortic valve: Prior repair procedures include transcatheter aortic valve replacement. There is a normally functioning bioprosthetic valve. There is no significant regurgitation. There is no perivalvular regurgitation. The peak systolic velocity is 1.7 m/sec. The mean systolic gradient is 5 mm Hg. 4. Pericardium, extracardiac: There is no pericardial effusion. STUDY DATA: Complete transthoracic echocardiogram. Procedure: Image quality was suboptimal. The study was technically limited due to body habitus, off axis, and supine position. Intravenous imaging enhancement (Definity) was administered to opacify the chamber. Definity lot #: [id number]. M-mode, complete 2D, complete spectral Doppler, and color flow Doppler images were acquired and archived for permanent storage and are available for subsequent review. Study status: Routine. Patient status: Inpatient. FINDINGS LEFT VENTRICLE: Wall thickness is mildly increased. There is mild concentric hypertrophy. Systolic function is normal by visual assessment. The estimated ejection fraction is 55%. There are no regional wall motion abnormalities. RIGHT VENTRICLE: Poorly visualized. The cavity size is normal. Systolic function is normal. Right ventricular systolic pressure is within the normal range. LEFT ATRIUM: Not well visualized. The atrium is moderately dilated. RIGHT ATRIUM: Not well visualized. The atrium is normal in size. MITRAL VALVE: Not well visualized. Noncalcified leaflets. Doppler: There is no significant regurgitation. AORTIC VALVE: Not well visualized. Prior repair procedures include transcatheter aortic valve replacement. There is a normally functioning bioprosthetic valve. Doppler: There is no significant regurgitation. There is no perivalvular regurgitation. Dimensionless index: 0.72. The valve area by the velocity-time integral method is 2.2 cm^2. The valve area index by the velocity-time integral method is 0.8 cm^2/m^2. The mean systolic gradient is 5 mm Hg. The peak systolic gradient is 11 mm Hg. The peak systolic velocity is 1.7 m/sec. TRICUSPID VALVE: Not well visualized. Noncalcified leaflets. Doppler: There is no significant regurgitation. PULMONIC VALVE: Not visualized. PERICARDIUM: There is no pericardial effusion. SYSTEMIC VEINS: Not well visualized. Measurements Value 11/24/2020 Reference Aortic root ID 3.1 cm <4.7 Left ventricle Value 11/24/2020 Reference LV ID, ED 5.0 cm 4.2 - 5.8 LV ID, ES 3.4 cm 2.5 - 4.0 LV ID/bsa, ED (L) 1.9 cm/m^2 2.2 - 3.0 LV ID/bsa, ES 1.3 cm/m^2 1.3 - 2.1 LV PW thickness, ED (H) 1.4 cm 0.6 - 1.0 LV PW/LV ID ratio, ED 0.28 LV wall mass (H) 271 g 96 - 200 LV wall mass/bsa 100 g/m^2 50 - 102 LV ejection fraction, 2-p 55 % 52 - 72 Ventricular septum Value 11/24/2020 Reference IVS thickness, ED (H) 1.2 cm 0.6 - 1.0 LVOT Value 11/24/2020 Reference LVOT ID, A-P 2.0 cm 2.1 (more content not included)... [employer] Work Phone: Boby, [facility] Incoming Cardiology Results From [facility] - 11/25/2020 12:11 PM EDT TRANSTHORACIC ECHOCARDIOGRAM PATIENT: Casey Sosa STUDY DATE: 11/25/2020 : 1955 AGE: 65 HT/WT: 188 cm (74 135.6 kg (298.4 in) lb) GENDER: M BP: 150 / 100 LOCATION: [facility] PATIENT Inpatient main STATUS: *ORDERING PHYSICIAN: * Crys Church *READING PHYSICIAN: * Nik *STRIP CATCHER: * Ilan Haddad RDCS, MD AE INDICATIONS: TAVR, Post 1 day.. CONCLUSIONS SUMMARY: 1. Procedure narrative: Image quality was suboptimal. The study was technically limited due to body habitus, off axis, and supine position. Intravenous imaging enhancement (Definity) was administered to opacify the chamber. Definity lot #: [id number]. 2. Left ventricle: There is mild concentric hypertrophy. Systolic function is normal by visual assessment. The estimated ejection fraction is 55%. There are no regional wall motion abnormalities. 3. Aortic valve: Prior repair procedures include transcatheter aortic valve replacement. There is a normally functioning bioprosthetic valve. There is no significant regurgitation. There is no perivalvular regurgitation. The peak systolic velocity is 1.7 m/sec. The mean systolic gradient is 5 mm Hg. 4. Pericardium, extracardiac: There is no pericardial effusion. STUDY DATA: Complete transthoracic echocardiogram. Procedure: Image quality was suboptimal. The study was technically limited due to body habitus, off axis, and supine position. Intravenous imaging enhancement (Definity) was administered to opacify the chamber. Definity lot #: [id number]. M-mode, complete 2D, complete spectral Doppler, and color flow Doppler images were acquired and archived for permanent storage and are available for subsequent review. Study status: Routine. Patient status: Inpatient. FINDINGS LEFT VENTRICLE: Wall thickness is mildly increased. There is mild concentric hypertrophy. Systolic function is normal by visual assessment. The estimated ejection fraction is 55%. There are no regional wall motion abnormalities. RIGHT VENTRICLE: Poorly visualized. The cavity size is normal. Systolic function is normal. Right ventricular systolic pressure is within the normal range. LEFT ATRIUM: Not well visualized. The atrium is moderately dilated. RIGHT ATRIUM: Not well visualized. The atrium is normal in size. MITRAL VALVE: Not well visualized. Noncalcified leaflets. Doppler: There is no significant regurgitation. AORTIC VALVE: Not well visualized. Prior repair procedures include transcatheter aortic valve replacement. There is a normally functioning bioprosthetic valve. Doppler: There is no significant regurgitation. There is no perivalvular regurgitation. Dimensionless index: 0.72. The valve area by the velocity-time integral method is 2.2 cm^2. The valve area index by the velocity-time integral method is 0.8 cm^2/m^2. The mean systolic gradient is 5 mm Hg. The peak systolic gradient is 11 mm Hg. The peak systolic velocity is 1.7 m/sec. TRICUSPID VALVE: Not well visualized. Noncalcified leaflets. Doppler: There is no significant regurgitation. PULMONIC VALVE: Not visualized. PERICARDIUM: There is no pericardial effusion. SYSTEMIC VEINS: Not well visualized. Measurements Value 11/24/2020 Reference Aortic root ID 3.1 cm <4.7 Left ventricle Value 11/24/2020 Reference LV ID, ED 5.0 cm 4.2 - 5.8 LV ID, ES 3.4 cm 2.5 - 4.0 LV ID/bsa, ED (L) 1.9 cm/m^2 2.2 - 3.0 LV ID/bsa, ES 1.3 cm/m^2 1.3 - 2.1 LV PW thickness, ED (H) 1.4 cm 0.6 - 1.0 LV PW/LV ID ratio, ED 0.28 LV wall mass (H) 271 g 96 - 200 LV wall mass/bsa 100 g/m^2 50 - 102 LV ejection fraction, 2-p 55 % 52 - 72 Ventricular septum Value 11/24/2020 Reference IVS thickness, ED (H) 1.2 cm 0.6 - 1.0 LVOT Value 11/24/2020 Reference LVOT ID, A-P 2.0 cm 2.1 LVOT mean velocity, S 0.7 m/sec 0.7 LVOT peak gradient, S 4 mm Hg 4 Stroke volume (SV), LVOT 60 ml 72 DP Stroke index (SV/bsa), 22 ml/m^2 28 LVOT DP Aortic valve Value 11/24/2020 Reference Aortic valve peak 1.7 m/sec 1.4 velocity, S Aortic valve mean 1.1 m/sec 0.9 velocity, S Aortic mean gradient, S 5 mm Hg 4 Aortic peak gradient, S 11 mm Hg 8 ------- (more content not included)... [employer] Work Phone: [employer] Work Phone: EKG 12 leadOrdered By: Ely Church on 11-25-2020 [facility] Test Date: 2020-11-24 Pat Name: CASEY SOSA [facility] Room: [facility] Gender: M Tow Mate: TB : 1955 Requested By: CRYS CHURCH Order Number: [id number] Reading MD: Nik Charles Measurements Intervals [place] Rate: 78 P: CO: QRS: -37 QRSD: 92 T: -46 QT: 378 QTc: 431 Interpretive Statements Atrial fibrillation Left axis deviation Borderline T abnormalities, inferior leads Electronically Signed On 11-25-2020 13:04:58 EDT by Nik Charles [employer] Work Phone: Boby, [facility] Incoming Cardiology Results From [facility] - 11/25/2020 1:06 PM EDT [facility] Test Date: 2020-11-24 Pat Name: CASEYANNABELLA SOSA Department: [facility] Room: [facility] Gender: M Tow Mate: TB : 1955 Requested By: CRYS CHURCH Order Number: [id number] Juice MD: Nik Charles Measurements Intervals [place] Rate: 78 P: CO: QRS: -37 QRSD: 92 T: -46 QT: 378 QTc: 431 Interpretive Statements Atrial fibrillation Left axis deviation Borderline T abnormalities, inferior leads Electronically Signed On 11-25-2020 13:04:58 EDT by Nik Charles [facility] Work Phone: [facility] Work Phone: Basic Metabolic PanelOrdered By: Crys Church on 11-24-2020 Anion gap [Moles/Vol] 5 mmol/L 3 - 13 mmol/L [facility] Work Phone: Calcium [Mass/Vol] 8.7 mg/dL 8.4 - 10. 4 mg/dL [facility] Work Phone: Chloride [Moles/Vol] 104 mmol/L 98 - 10 7 mmol/L [facility] Work Phone: CO2 [Moles/Vol] 28 mmol/L 22 - 30 mmol/L [facility] Work Phone: Creatinine [Mass/Vol] 0.8 mg/dL 0.52 - 1.25 mg/dL [facility] Work Phone: EGFR IF NonAfrican Angolan >90.0 >60 mL/min [facility] Work Phone: Comment on above: KDIGO guidelines pro vide the following GFR categories: Stage GFR(ml/min/1.73 m2) Terms G1 >=90 Normal or high G2 60-89 Mildly decreased* G3a 45-59 Mildly to moderately decreased G3b 30-44 Moderately to severely decreased G4 15-29 Severely decreased G5 <15 Kidney failure *Relative to young adult level. In the absence of evidence of kidney damage, neither GFR category G1 nor G2 fulfill the criteria for CKD. The CKD-EPI equation is validated in individuals 18 years of age and older. Currently the best equation for estimating glomerular filtration rate (GFR) from serum creatinine in children is the Bedside Andrade equation. It is less accurate in patients with extremes of muscle mass, restriction of dietary protein, ingestion of creatine, extra-renal metabolism of creatinine, or treatment with medications that affect renal tubular creatinine secretion. GFR/1.73 sq M.predicted among blacks MDRD (S/P/Bld) [Vol rate/Area] mL/min/{1.73_m2} >60 mL/min [facility] Work Phone: Glucose [Mass/Vol] 113 mg/dL High 70 - 100 mg/dL [facility] Work Phone: Interpretation and review of laboratory results Abnormal [facility] Work Phone: Potassium [Moles/Vol] 4.1 mmol/L 3.5 - 5.1 mmol/L [facility] Work Phone: Sodium [Moles/Vol] 137 mmol/L 135 - 145 mmol/L [facility] Work Phone: Urea nitrogen (BldV) [Mass/Vol] 20 mg/dL 7 - 20 mg/dL [facility] Work Phone: Test Performed by [facility], [address] [place] [id number] [facility] Work Phone: [facility] Work Phone: CBCOrdered By: Crys arguello on 11-24-2020 Hematocrit (Bld) [Volume fraction] 41.5 % 40.0 - 52.0 % [facility] Work Phone: Hemoglobin.gastrointesti nal spec 1 Ql (Stl) 14.3 g/dL 13.0 - 18.0 g/dL [facility] Work Phone: Interpretation and review of laboratory results Abnormal [facility] Work Phone: MCH (RBC) [Entitic mass] 32.5 pg 26. 0 - 34.0 pg [facility] Work Phone: MCHC (RBC) [Mass/Vol] 34.6 % 32.0 - 36.0 % [facility] Work Phone: MCV (RBC) [Entitic vol] 94.1 fL 80.0 - 98.0 fL [facility] Work Phone: Platelet distribution width (Bld) [Ratio] 13.7 % 11.5 - 14.5 % [facility] Work Phone: Platelet mean volume (Bld) [Entitic vol] 8.7 fL 7.4 - 10.4 fL [facility] Work Phone: Platelets (Bld) [#/Vol] 99 10*3/uL Low 140 - 440 10*3/uL [facility] Work Phone: RBC (Bld) [#/Vol] 4.41 10*6/uL 4.40 - 5.9 0 10*6/uL [employer] Work Phone: WBC (Bld) [#/Vol] 6.1 10*3/uL 3.6 - 10.7 10*3/uL [employer] Work Phone: Test Performed by [facility], [address] [place] [address] [employer] Work Phone: [employer] Work Phone: ECHOCARDIOGRAM LIMITEDOrdere d By: Valente Polanco on 11-24-2020 LIMITED TRANSTHORACIC ECHOCARDIOGRAM Perioperative - TAVR PATIENT: Casey Sosa STUDY DATE: 11/24/2020 : 1955 AGE: 65 HT/WT: 185.4 cm (73 135.6 kg (298.4 in) lb) GENDER: M BP: 100 / 64 LOCATION: [facility] [facility] PATIENT Inpatient main STATUS: *ORDERING PHYSICIAN: * Valente Polanco MD *READING PHYSICIAN: * Reshma Lowery *STRIP CATCHER: * Marialuisa PEREIRA INDICATIONS: TAVR/ Aortic stenosis. CONCLUSIONS SUMMARY: 1. Left ventricle: Systolic function is normal by visual assessment. 2. Aortic valve: Pre-TAVR: JOSH: 0.9 cm^2. Peak gradient: 80 mm Hg. Mean gradient: 47 mm Hg. Peak velocity: 4.4 m/sec. Post-TAVR: JOSH: 3.2 cm^2. Peak gradient: 7 mm Hg. Mean gradient: 3 mm Hg. Peak velocity: 1.9 m/sec. There is no significant perivalvular regurgitation. 3. Pericardium, extracardiac: There is no pericardial effusion. 4. Technically difficult study. STUDY DATA: Transthoracic echocardiography, limited study. Procedure: Image quality was suboptimal. The study was technically limited due to poor acoustic window availability, restricted patient mobility, body habitus, respiratory interference, and supine position. M-mode, limited 2D, limited spectral Doppler, and color flow Doppler images were acquired and archived for permanent storage and are available for subsequent review. Study status: Routine. Patient status: Inpatient. Location: Hybrid operating room. FINDINGS LEFT VENTRICLE: Not well visualized. Systolic function is normal by visual assessment. MITRAL VALVE: Not well visualized. Doppler: There is no significant regurgitation. AORTIC VALVE: Doppler: There is no significant perivalvular regurgitation. Dimensionless index: 0.88. The valve area by the velocity-time integral method is 3.2 cm^2. The valve area index by the velocity-time integral method is 1.2 cm^2/m^2. The mean systolic gradient is 4 mm Hg. The peak systolic gradient is 8 mm Hg. The peak systolic velocity is 1.4 m/sec. Pre-TAVR: Pre-TAVR: JOSH: 0.9 cm^2. Peak gradient: 80 mm Hg. Mean gradient: 47 mm Hg. Peak velocity: 4.4 m/sec. Post-TAVR: JOSH: 3.2 cm^2. Peak gradient: 7 mm Hg. Mean gradient: 3 mm Hg. Peak velocity: 1.9 m/sec. TRICUSPID VALVE: Not well visualized. Doppler: There is no significant regurgitation. PERICARDIUM: There is no pericardial effusion. Measurements LVOT Value LVOT ID, A-P 2.1 cm LVOT mean velocity, S 0.7 m/sec LVOT peak gradient, S 4 mm Hg Stroke volume (SV), LVOT DP 72 ml Stroke index (SV/bsa), LVOT DP 28 ml/m^2 Aortic valve Value Aortic valve peak velocity, S 1.4 m/sec Aortic valve mean velocity, S 0.9 m/sec Aortic mean gradient, S 4 mm Hg Aortic peak gradient, S 8 mm Hg DI 0.88 Aortic valve area, VTI 3.2 cm^2 Aortic valve area/bsa, VTI 1.2 cm^2/m^2 Legend: (L) and (H) arcelia values outside specified reference range. Electronically signed by Reshma Lowery 11/24/2020 14:02 Prior Signatures: [facility] Work Phone: Boby, [facility] Incoming Cardiology Results From [facility] - 11/24/2020 2:02 PM EDT LIMITED TRANSTHORACIC ECHOCARDIOGRAM Perioperative - TAVR PATIENT: Casey Sosa STUDY DATE: 11/24/2020 : 1955 AGE: 65 HT/WT: 185.4 cm (73 135.6 kg (298.4 in) lb) GENDER: M BP: 100 / 64 LOCATION: [facility] PATIENT Inpatient main STATUS: *ORDERING PHYSICIAN: * Valente Polanco MD *READING PHYSICIAN: * Reshma Lowery *STRIP CATCHER: * Marialuisa PEREIRA INDICATIONS: TAVR/ Aortic stenosis. CONCLUSIONS SUMMARY: 1. Left ventricle: Systolic function is normal by visual assessment. 2. Aortic valve: Pre-TAVR: JOSH: 0.9 cm^2. Peak gradient: 80 mm Hg. Mean gradient: 47 mm Hg. Peak velocity: 4.4 m/sec. Post-TAVR: JOSH: 3.2 cm^2. Peak gradient: 7 mm Hg. Mean gradient: 3 mm Hg. Peak velocity: 1.9 m/sec. There is no significant perivalvular regurgitation. 3. Pericardium, extracardiac: There is no pericardial effusion. 4. Technically difficult study. STUDY DATA: Transthoracic echocardiography, limited study. Procedure: Image quality was suboptimal. The study was technically limited due to poor acoustic window availability, restricted patient mobility, body habitus, respiratory interference, and supine position. M-mode, limited 2D, limited spectral Doppler, and color flow Doppler images were acquired and archived for permanent storage and are available for subsequent review. Study status: Routine. Patient status: Inpatient. Location: Hybrid operating room. FINDINGS LEFT VENTRICLE: Not well visualized. Systolic function is normal by visual assessment. MITRAL VALVE: Not well visualized. Doppler: There is no significant regurgitation. AORTIC VALVE: Doppler: There is no significant perivalvular regurgitation. Dimensionless index: 0.88. The valve area by the velocity-time integral method is 3.2 cm^2. The valve area index by the velocity-time integral method is 1.2 cm^2/m^2. The mean systolic gradient is 4 mm Hg. The peak systolic gradient is 8 mm Hg. The peak systolic velocity is 1.4 m/sec. Pre-TAVR: Pre-TAVR: JOSH: 0.9 cm^2. Peak gradient: 80 mm Hg. Mean gradient: 47 mm Hg. Peak velocity: 4.4 m/sec. Post-TAVR: JOSH: 3.2 cm^2. Peak gradient: 7 mm Hg. Mean gradient: 3 mm Hg. Peak velocity: 1.9 m/sec. TRICUSPID VALVE: Not well visualized. Doppler: There is no significant regurgitation. PERICARDIUM: There is no pericardial effusion. Measurements LVOT Value LVOT ID, A-P 2.1 cm LVOT mean velocity, S 0.7 m/sec LVOT peak gradient, S 4 mm Hg Stroke volume (SV), LVOT DP 72 ml Stroke index (SV/bsa), LVOT DP 28 ml/m^2 Aortic valve Value Aortic valve peak velocity, S 1.4 m/sec Aortic valve mean velocity, S 0.9 m/sec Aortic mean gradient, S 4 mm Hg Aortic peak gradient, S 8 mm Hg DI 0.88 Aortic valve area, VTI 3.2 cm^2 Aortic valve area/bsa, VTI 1.2 cm^2/m^2 Legend: (L) and (H) arcelia values outside specified reference range. Electronically signed by Reshma Lowery 11/24/2020 14:02 Prior Signatures: [employer] Work Phone: [employer] Work Phone: OPERATIVE REPORTOrdered By: [address] [place] [address] on 11-24-2020 [facility] Work Phone: Brain Natriuretic PeptideOrd ered By: Valente Polanco on 11-13-2020 Interpretation and review of laboratory results Abnormal [facility] Work Phone: Natriuretic peptide B (Bld) [Mass/Vol] 612 pg/mL High 0 - 125 pg/mL [facility] Work Phone: Test Performed by [employer] [address] [address] [facility] Work Phone: [facility] Work Phone: CBC Auto DifferentialOrdered By: Valente Polanco on 11-13-2020 Absolute Baso # 0.1 10*3/uL 0.0 - 0.2 10*3/uL [facility] Work Phone: Absolute Neut # 5.7 10*3/uL 1.8 - 7.0 10*3/uL [facility] Work Phone: Basophils/100 WBC (Bld) 0.7 % 0.0 - 2.0 % [facility] Work Phone: Eosinophils (Bld) [#/Vol] 0.1 10*3/uL 0.0 - 0.5 10*3/uL [facility] Work Phone: Eosinophils/100 WBC (Bld) 1.7 % 1.0 - 6.0 % [facility] Work Phone: Granulocytes/100 WBC (Bld) 68.5 % 40.0 - 80.0 % [facility] Work Phone: Hematocrit (Bld) [Volume fraction] 45.5 % 40.0 - 52.0 % [facility] Work Phone: Hemoglobin.gastrointesti nal spec 1 Ql (Stl) 15.3 g/dL 13.0 - 18.0 g/dL [facility] Work Phone: Lymphocytes (Bld) [#/Vol] 1.7 10*3/uL 1.0 - 4.3 10*3/uL [facility] Work Phone: Lymphocytes/100 WBC (Bld) 20.1 % 20.0 - 40.0 % [employer] Work Phone: MCH (RBC) [Entitic mass] 32.1 pg 26. 0 - 34.0 pg [facility] Work Phone: MCHC (RBC) [Mass/Vol] 33.7 % 32.0 - 36.0 % [facility] Work Phone: MCV (RBC) [Entitic vol] 95.3 fL 80.0 - 98.0 fL [facility] Work Phone: Monocytes (Bld) [#/Vol] 0.8 10*3/uL 0.0 - 0.8 10*3/uL [employer] Work Phone: Monocytes/100 WBC (Bld) 9.0 % 2.0 - 10.0 % [employer] Work Phone: Platelet distribution width (Bld) [Ratio] 13.9 % 11.5 - 14.5 % [employer] Work Phone: Platelet mean volume (Bld) [Entitic vol] 9.6 fL 7.4 - 10.4 fL [employer] Work Phone: Platelets (Bld) [#/Vol] 179 10*3/uL 140 - 440 10*3/uL [employer] Work Phone: RBC (Bld) [#/Vol] 4.77 10*6/uL 4.40 - 5.9 0 10*6/uL [employer] Work Phone: WBC (Bld) [#/Vol] 8.4 10*3/uL 3.6 - 10.7 10*3/uL [employer] Work Phone: Test Performed by [facility] [address] [employer] Work Phone: [employer] Work Phone: Comprehensive Metabolic Pane lOrdered By: Valente Polanco on 11-13-2020 Albumin [Mass/Vol] 4.6 g/dL 3.5 - 5.0 g/dL [employer] Work Phone: ALP (Bld) [Catalytic activity/Vol] 115 U/L 38 - 126 U/L [facility] Work Phone: ALT [Catalytic activity/Vol] 70 U/L High 0 - 49 U/L [facility] Work Phone: Comment on above: The ALT test is perf ormed by an updated assay method. Please note that the reference intervals have been changed and are now sex specific. Anion gap [Moles/Vol] 6 mmol/L 3 - 13 mmol/L [facility] Work Phone: AST [Catalytic activity/Vol] 82 U/L High 15 - 46 U/L [facility] Work Phone: Bilirubin [Mass/Vol] 0.9 mg/dL 0.2 - 1 .3 mg/dL [facility] Work Phone: Calcium [Mass/Vol] 9.5 mg/dL 8.4 - 10. 4 mg/dL [facility] Work Phone: Chloride [Moles/Vol] 102 mmol/L 98 - 10 7 mmol/L [facility] Work Phone: CO2 [Moles/Vol] 32 mmol/L High 22 - 30 mmol/L [facility] Work Phone: Creatinine [Mass/Vol] 1.08 mg/dL 0.52 - 1.25 mg/dL [facility] Work Phone: EGFR IF NonAfrican Angolan 70.8 mL/min >60 [facility] Work Phone: Comment on above: KDIGO guidelines pro vide the following GFR categories: Stage GFR(ml/min/1.73 m2) Terms G1 >=90 Normal or high G2 60-89 Mildly decreased* G3a 45-59 Mildly to moderately decreased G3b 30-44 Moderately to severely decreased G4 15-29 Severely decreased G5 <15 Kidney failure *Relative to young adult level. In the absence of evidence of kidney damage, neither GFR category G1 nor G2 fulfill the criteria for CKD. The CKD-EPI equation is validated in individuals 18 years of age and older. Currently the best equation for estimating glomerular filtration rate (GFR) from serum creatinine in children is the Bedside Andrade equation. It is less accurate in patients with extremes of muscle mass, restriction of dietary protein, ingestion of creatine, extra-renal metabolism of creatinine, or treatment with medications that affect renal tubular creatinine secretion. Free PSA/Total PSA [Mass fraction] 8.0 g/dL 6.3 - 8.2 g/dL [employer] Work Phone: GFR/1.73 sq M.predicted among blacks MDRD (S/P/Bld) [Vol rate/Area] 82.1 mL/min/{1.73_m2} >60 [employer] Work Phone: Glucose [Mass/Vol] 70 mg/dL 70 - 100 mg/dL [employer] Work Phone: Interpretation and review of laboratory results Abnormal [employer] Work Phone: Potassium [Moles/Vol] 4.9 mmol/L 3.5 - 5.1 mmol/L [employer] Work Phone: Sodium [Moles/Vol] 141 mmol/L 135 - 145 mmol/L [employer] Work Phone: Urea nitrogen (BldV) [Mass/Vol] 27 mg/dL High 7 - 20 mg/dL [employer] Work Phone: Test Performed by [employer] [facility], [address] [place] [address] [employer] Work Phone: [employer] Work Phone: Protime/INR & PTTOrdered By: Valente Polanco on 11-13-2020 aPTT Coag (Bld) [Time] 29.1 s 20.0 - 30.5 s [employer] Work Phone: Comment on above: NOTE: The therapeuti c time for Heparin anticoagulation, based on Xa activity inhibition, is an APTT of 46-80 seconds. INR Coag (Bld) [Relative time] 1.2 {INR} High [employer] Work Phone: Comment on above: Recommended Anticoag ulant Therapy: SEE BELOW ----- INR of 2.0 - 3.0 : - Prophylaxis of Venous Thrombosis (high-risk surgery) - Treatment of Venous Thrombosis - Treatment of Pulmonary Embolism (Includes tissue heart valves, Acute Myocardial Infarction to prevent systemic embolism, Valvular Heart Disease, and Atrial Fibrillation) ----- INR of 2.5 - 3.5 : - Mechanical Prosthetic Valves (high risk) - If oral anticoagulant therapy is used to prevent Myocardial Infarction Interpretation and review of laboratory results Abnormal [facility] Work Phone: PT Coag (PPP) [Time] 12.3 s High 9.0 - 12.0 s [employer] Work Phone: Comment on above: . Test Performed by [facility], [facility] [place] [address] [facility] Work Phone: [facility] Work Phone: TYPE AND SCREENOrdered By: Dada Polanco on 11-13-2020 [employer] [facility] Work Phone: Rh Type Positive [facility] Work Phone: Test Performed by [employer] [facility] [place] [address] [employer] Work Phone: [facility] Work Phone: XR CHEST (2 VW)Ordered By: Dada Polanco on 11-13-2020 Patient Name: CASEY SOSA Diagnostic Radiology ACCESSION EXAM DATE/TIME PROCEDURE ORDERING PROVIDER [id number] 11/13/2020 15:33 EDT CR Chest PA & LAT MD POLANCO PETER CPT code 37007 Reason For Exam (CR Chest PA & LAT) pre-op Report CLINICAL INDICATION: Preop. Frontal and lateral plain films of the chest were obtained. COMPARISON: None FINDINGS: The cardiac silhouette is within normal limits. No focal consolidation is seen within the lungs. No pleural effusion or pneumothorax is identified. Prominence of central pulmonary vascular structures may reflect underlying pulmonary hypertension. IMPRESSION: No acute cardiopulmonary disease. Report Dictated on --- Final --- Dictated: 11/13/2020 4:09 pm Dictating Physician: MD ONEILL LAURA Signed Date and Time: 11/13/2020 4:10 pm Signed by: MD ONEILL LAURA Transcribed Date and Time: 11/13/2020 4:09 [facility] Work Phone: [facility], [facility] From [facility] - 11/13/2020 4:11 PM EDT Patient Name: CASEY SOSA Diagnostic Radiology ACCESSION EXAM DATE/TIME PROCEDURE ORDERING PROVIDER [id number] 11/13/2020 15:33 EDT CR Chest PA & LAT MD POLANCO PETER CPT code 84658 Reason For Exam (CR Chest PA & LAT) pre-op Report CLINICAL INDICATION: Preop. Frontal and lateral plain films of the chest were obtained. COMPARISON: None FINDINGS: The cardiac silhouette is within normal limits. No focal consolidation is seen within the lungs. No pleural effusion or pneumothorax is identified. Prominence of central pulmonary vascular structures may reflect underlying pulmonary hypertension. IMPRESSION: No acute cardiopulmonary disease. Report Dictated on --- Final --- Dictated: 11/13/2020 4:09 pm Dictating Physician: MD ONEILL LAURA Signed Date and Time: 11/13/2020 4:10 pm Signed by: MD ONEILL LAURA Transcribed Date and Time: 11/13/2020 4:09 [facility] Work Phone: [facility] Work Phone: Vital Signs Date Time Vital Sign Value Performing Clinician Payton vasquez 11-25-2020 13:00-0400 Heart rate 96 /min Valente Martinez Work Phone: [facility] Work Phone: 11-25-2020 11:25-0400 Body temperature 98.49 [degF] Valente Martinez Work Phone: [facility] Work Phone: 11-25-2020 11:25-0400 Respiratory rate 16 /min Valente Martinez Work Phone: [facility] Work Phone: 11-25-2020 07:28-0400 Diastolic blood pressure 92 mm[Hg] Valente Polnaco MD Work Phone: [facility] Work Phone: 11-25-2020 07:28-0400 SaO2% (BldA) [Mass fraction] 96 % Valente Polanco MD Work Phone: [facility] Work Phone: 11-25-2020 07:28-0400 Systolic blood pressure 116 mm[Hg] Valente Polanco MD Work Phone: [facility] Work Phone: 11-24-2020 07:34-0400 Body height 185.4 cm Valente Martinez Work Phone: [facility] Work Phone: 11-24-2020 07:34-0400 Body mass index (BMI) [Ratio] 39.45 kg/m2 Valente Polanco MD Work Phone: [facility] Work Phone: 11-24-2020 07:34-0400 Body weight 135.63 kg Valente Martinez Work Phone: [facility] Work Phone: Encounters Encounter Date Encounter Type Care Provider Facility Start: 11-26-2021 End: 11-26-2021 Subsequent hospital visit by physician Crys Church APRN - MANAGER MERCHANDISE Work Phone: [facility] [address] Comment on above: Aortic valve stenosi s, etiology of cardiac valve disease unspecified Start: 01-14-2021 End: 01-14-2021 Subsequent hospital visit by physician Crys Church APRN - MANAGER MERCHANDISE Work Phone: [facility] [address] Comment on above: Severe aortic stenos is; Persistent atrial fibrillation (HCC); Essential hypertension; RITESH on CPAP; Cirrhosis of liver without ascites, unspecified hepatic cirrhosis type (HCC) Start: 01-14-2021 End: 01-14-2021 Subsequent hospital visit by physician Marisol Rivera APRN - MANAGER MERCHANDISE Work Phone: [facility] [address] Comment on above: Aortic stenosis, sev ere Start: 11-24-2020 End: 11-25-2020 Evaluation and management of inpatient Valente Polanco MD Work Phone: [facility] Comment on above: Arrived Start: 11-13-2020 End: 11-13-2020 Subsequent hospital visit by physician Valente Polanco MD Work Phone: [facility] [address] Comment on above: Aortic valve stenosi s, etiology of cardiac valve disease unspecified; Dyspnea on exertion Start: 10-28-2020 End: 10-28-2020 Subsequent hospital visit by physician Valente Polanco MD Work Phone: [facility] [address] Comment on above: Aortic valve stenosi s, etiology of cardiac valve disease unspecified Procedures Date Procedure Procedure Detail Performing Clinician Start: 11-26-2021 Echo tthrc r-t 2d w/wom-mode compl spec&colr d Crys Church SKILLS AUDITOR - MANAGER [employer]ISE Work Phone: Start: 01-14-2021 Basic metabolic panel calcium total Crys Church SKILLS AUDITOR - MANAGER [employer]ANDISE Work Phone: Start: 01-14-2021 Echo tthrc r-t 2d w/wom-mode compl spec&colr d Valente Polanco MD Work Phone: Start: 11-25-2020 Echo tthrc r-t 2d w/wom-mode compl spec&colr d Crys Church SKILLS AUDITOR - MANAGER MERCHANDISE Work Phone: Start: 11-25-2020 Ecg routine ecg w/least 12 lds w/i&r Crys Church SKILLS AUDITOR - MANAGER MERCHANDISE Work Phone: Start: 11-25-2020 Basic metabolic panel calcium total Crys Church SKILLS AUDITOR - MANAGER MERCHANDISE Work Phone: Start: 11-24-2020 Basic metabolic panel calcium total Crys Church SKILLS AUDITOR - MANAGER MERCHANDISE Work Phone: Start: 11-24-2020 Ecg routine ecg w/least 12 lds w/i&r rCys Church SKILLS AUDITOR - MANAGER MERCHANDISE Work Phone: Start: 11-24-2020 Echocardiography Valente Martinez [...] Pneumococcal 65+ years Vaccine (2 - PCV) [facility] Start: 02-11-2021 Influenza vaccination [facility] Work Phone: Start: 12-25-2020 End: 12-25-2020 Evaluation and management of inpatient 12/25/2020 Office Visit Cardiology Marisol Rivera APRN [facility] [address] [place] [address] [phone] [facility] Start: 12-04-2020 End: 12-04-2020 Evaluation and management of inpatient 12/04/2020 Office Visit Cardiology Marisol Rivera APRN [employer] [address] [place] [address] [phone] [facility] Start: 11-24-2020 End: 11-24-2020 Patient encounter procedure 11/24/2020 Appointment General Surgery Valente Polanco MD [address] [place] [address] [phone] [facility] General Surgery Start: 11-17-2020 End: 11-17-2020 Patient encounter procedure 11/17/2020 Appointment General Surgery Valente oPlanco MD [address] [place] [address] [phone] [facility] General Surgery Start: 11-13-2020 End: 11-13-2020 Patient encounter procedure 11/13/2020 Office Visit Cardiology Marisol Rivera APRN [employer] [address] [place] [address] [phone] [facility] Start: 09-26-2020 Annual Wellness Visi t (AWV) Annual Wellness Visit (AWV) [facility] Work Phone: Start: 2019 Pneumococcal 65+ yea rs Vaccine (1 of 1 - PPSV23) Pneumococcal 65+ years Vaccine (1 of 1 - PPSV23) [facility] Work Phone: Start: 2004 Screening for malign ant neoplasm of colon Colon cancer screen colonoscopy [facility] Work Phone: Start: 2004 Shingles Vaccine (1 of 2) Shingles Vaccine (1 of 2) [facility] Start: 1999 Screening for malign ant neoplasm of colon [facility] Start: 1994 Diabetes screen Diabetes screen [facility] Work Phone: Start: 1994 Lipid panel Lipid screen [facility] Work Phone: Start: 1994 Prostate specific antigen measurement Prostate Specific Antigen (PSA) Screening or [...] starting 11/24/2020, 2 completed [facility] Work Phone: Comment on above: Daily until disconti nued starting 11/24/2020, 2 completed CBC panel - Blood by Automated count CBC Lab Routine Daily until discontinued starting 11/24/2020, 2 completed [facility] Work Phone: Comment on above: Daily until disconti nued starting 11/24/2020, 2 completed Continuous pulse oximetry Pulse oximetry, continuous Respiratory Care Routine Every 4hr until discontinued starting 11/24/2020 [facility] Work Phone: Comment on above: Every 4hr until disc ontinued starting 11/24/2020 End: 10-28-2020 CTA CHEST ABDOMEN PELVIS W CONTRAST CTA CHEST ABDOMEN PELVIS W CONTRAST Imaging Routine Aortic valve stenosis, etiology of cardiac valve disease unspecified 1 Occurrences starting 10/28/2020 until 10/28/2020 [facility] Work Phone: Comment on above: 1 Occurrences starti ng 10/28/2020 until 10/28/2020 CTA CHEST ABDOMEN PE LVIS W CONTRAST CTA CHEST ABDOMEN PELVIS W CONTRAST Imaging Routine Aortic valve stenosis, etiology of cardiac valve disease unspecified 10/28/2020 9:09 AM EDT [facility] Work Phone: EKG 12 lead [facility] Work Phone: Comment on above: Daily until disconti nued starting 11/24/2020, 2 completed Oxygen therapy [[facility] Data Set] Initiate Oxygen Therapy Protocol Respiratory Care Routine Daily until discontinued starting 11/24/2020 [facility] Work Phone: Comment on above: Daily until disconti nued starting 11/24/2020 End: 11-13-2020 PREPARE RBC (CROSSMATCH), 2 Units PREPARE RBC (CROSSMATCH), 2 Units Blood Bank Routine Aortic valve stenosis, etiology of cardiac valve disease unspecified 1 Occurrences starting 11/13/2020 until 11/13/2020 [facility] Work Phone: Comment on above: 1 Occurrences starti ng 11/13/2020 until 11/13/2020 PREPARE RBC (CROSSMATCH), 2 Units PREPARE RBC (CROSSMATCH), 2 Units Blood Bank Routine Aortic valve stenosis, etiology of cardiac valve disease unspecified 11/13/2020 3:41 PM EDT [facility] Work Phone: Spirometry panel Incentive qiana metry Respiratory Care Routine Every 2hr while awake until discontinued starting 11/24/2020 [facility] Work Phone: Comment on above: Every 2hr while awak e until discontinued starting 11/24/2020 Payers Date Payer Category Payer Medicare MEDICARE MEDICAR E PART A AND B [id number] 2020-Present [phone] [place] [address] [id number] 2020 Unknown [employer] M [employer] MEDICARE SUPPLEMENT [id number] 2020-Present [phone] [address] [place] [address] [id number] Social History Date Type Detail Facility Start: 09-30-2020 End: 01-14-2021 Tobacco smoking status NHIS Never smoker [facility] Work Phone: Start: 09-30-2020 End: 01-14-2021 Tobacco use and exposure Never used [facility] Start: 09-30-2020 End: 01-14-2021 Alcohol intake Ex-drinker (finding) [facility] Work Phone: Start: 1955 Sex Assigned At Not on file [facility] Work Phone: Exposure to SARS-CoV -2 (event) Not sure [facility] Discharge instructions 11-24-2020 Instructions Note Date & Type Note Facility 11-24-2020 Hospital Discharg e instructions Crys Church, SKILLS AUDITOR - MANAGER MERCHANDISE - 11/24/2020 - Please call the [facility] with any questions: [phone] -You will have have the following follow [...] note Note Date & Type Note Facility Evaluation note Diagnosis Aortic valve stenosis, etiology of cardiac valve disease unspecified documented in this encounter [facility] Work Phone: Evaluation note Note Date & Type Note Facility Evaluation note Diagnosis Aortic valve stenosis, etiology of cardiac valve disease unspecified Dyspnea on exertion Other dyspnea and respiratory abnormality documented in this encounter [facility] Work Phone: Evaluation note Note Date & Type Note Facility Evaluation note Diagnosis Severe aortic stenosis Aortic valve disorders documented in this encounter [facility] Work Phone: Evaluation note Note Date & Type Note Facility Evaluation note Diagnosis Severe aortic stenosis Aortic valve disorders Persistent atrial fibrillation (HCC) Atrial fibrillation Essential hypertension Unspecified essential hypertension RITESH on CPAP Obstructive sleep apnea (adult) (pediatric) Cirrhosis of liver without ascites, unspecified hepatic cirrhosis type (HCC) documented in this encounter [facility] Work Phone: Evaluation note Note Date & Type Note Facility Evaluation note Diagnosis Aortic stenosis, severe Aortic valve disorders documented in this encounter [facility] Work Phone: Evaluation note Note Date & Type Note Facility Evaluation note Diagnosis Aortic valve stenosis, etiology of cardiac valve disease unspecified documented in this encounter [facility] Work Phone: Reason for Referral Status Reason Specialty Diagnoses / Procedures Referre d By Contact Referred To Contact Closed Radiology Diagnoses Aortic valve stenosis, etiology of cardiac valve disease unspecified Procedures CTA CHEST ABDOMEN PELVIS W CONTRAST Valente Polanco MD [address] [place] [address] Status Reason Specialty Diagnoses / Procedures Referre d By Contact Referred To Contact Closed Cardiology Diagnoses Aortic stenosis, severe Procedures ECHO Complete 2D W Doppler W Color Valente Polanco MD [address] [place] [address] Specialty Diagnoses / Procedures Referred By Contac t Referred To Contact Cardiology Diagnoses Aortic valve stenosis, etiology of cardiac valve disease unspecified Procedures ECHO Complete 2D W Doppler W Color Crys Church, SKILLS AUDITOR - MANAGER MERCHANDISE [address] [place] [address] Referral ID Status Reason Start Date Expiration Date Visits Re quested Visits Authorized [id number] Closed 11/26/2021 11/26/2022 1 1 Advance Directives No Advanced Directives Records FoundDocuments on File Type Date Recorded Patient Commercial Instructor Supervisor Expl anation ACP-Advance Directive 10/28/2020 12:00 AM Documents on File Type Date Recorded Patient Commercial Instructor Supervisor Expl anation ACP-Advance Directive 10/28/2020 12:00 AM [...] Ordered Prescriptions (unrec ognized section and content) Prescription Sig Dispensed Refills Start Date End Da te apixaban (ELIQUIS) 5 MG TABS tablet Take 1 tablet by mouth 2 times daily Resume 11/25 evening 60 tablet 1 11/25/2020 aspirin 81 MG EC tablet Take 1 tablet by mouth daily Take for 3 months and then stop 30 tablet 3 11/25/2020 Scheduled Active and Recently Administ ered Medications (unrecognized section and content) Medication Order 11/23/2020 11/24/2020 11/25/2020 aspirin EC tablet 81 mg 81 mg, Oral, DAILY, First dose on Tue11/25/20 at 0900, Do not crush or break. 0800 (Given - Provid er: Apple Belle RN) atorvastatin (LIPITOR) tablet 20 mg 20 mg, Oral, DAILY, First dose on Tue11/24/20 at 2100 2007 (Given - Provider: Inga Galarza RN) 0800 (Given - Provider: Apple Belle RN)2099 (Due) clopidogrel (PLAVIX) tablet 300 mg (COMPLETED) 300 mg, Oral, ONCE, On Tue11/24/20 at 1130, For 1 dose, Post-op 1150 (Given - Provider: Nixon Johnson RN) clopidogrel (PLAVIX) tablet 75 mg 75 mg, Oral, DAILY, First dose on Tue11/25/20 at 0900 0800 (Given - Provid er: Apple Belle RN) hydroCHLOROthiazide (HYDRODIURIL) tablet 12.5 mg(Linked Group 1) 12.5 mg, Oral, DAILY, First dose on Tue11/24/20 at 1130, Hold operative day for SBP less than 120 1150 (Given - Provider: Nixon Johnson RN) 0801 (Given - Provider: Apple Belle RN) lisinopril (PRINIVIL;ZESTRIL) tablet 10 mg(Linked Group 1) 10 mg, Oral, DAILY, First dose on Tue11/24/20 at 1130, Hold operative day for SBP less than 120 1150 (Given - Provider: Nixon Johnson RN) 0802 (Not Given - Provider: Apple Belle RN - Reason: Other - Comment: pt takes at night) metoprolol succinate (TOPROL XL) extended release tablet 50 mg 50 mg, Oral, NIGHTLY, First dose on Tue11/24/20 at 2100, Do not crush or chew. 2007 (Given - Provider: Inga Galarza RN) 2100 (Due) pantoprazole (PROTONIX) tablet 40 mg 40 mg, Oral, DAILY, First dose on Tue11/24/20 at 1130, Do not crush or break., Post-op 1150 (Given - Provider: Nixon Johnson RN) 0800 (Given - Provider: Apple Belle RN) Continuous Medication Order 11/23/2020 11/24/2020 11/25/2020 0.9 [...] 5-40 mL, Intravenous, PRN, Line Care, Per Tab Cutting Machine Operator Request, Starting on Tue11/24/20 at 0735, For 72 hours, May use order for Line Care after every IV line use and Agitated Saline Bubble Study. Administration for Bubble Study per installation supervisor request for only. Remove 1 mL 0.9% [...] 5-40 mL, Intravenous, PRN, Line Care, Per Tab Cutting Machine Operator Request, Starting on Tue11/24/20 at 1101, For 72 hours, May use order for Line Care after every IV line use and Agitated Saline Bubble Study. Administration for Bubble Study per installation supervisor request for only. Remove 1 mL 0.9% [...] 10 mg, Oral, DAILY, First dose on 11/24/20 at 1130
Hold operative day for SBP less than 120
And hydroCHLOROthiazide (HYDRODIURIL) tablet 12.5 mgJump to med 12.5 mg, Oral, DAILY, First dose on 11/24/20 at 1130
Hold operative day for SBP less than 120
Care Teams (unrecognized sec tion and content) Glass Belt Sander Relationship Specialty Start Date End Date Eber Ruffin MD [address] [facility] [address] [place] [address] PCP - General Family Medicine 11/26/21 (unrecognized sect ion and content) No Status Records Found INFORMATION SOURCE (unrecogn ized section and content) DATE CREATED AUTHOR 12/01/2021 [facility] FOR RECORDS PERTAINING TO PATIENTS WHO ARE [...] BE BASED ON THE PRIMARY CLINICAL RECORDS. [facility]. provides no warranty or guarantee of the accuracy or completeness of information in this document.
== END | disposition home or self-care (01) ==
LOC: CVS 07:44
PROVIDERS: PCP Family Medicine; Referring Provider Nurse Practitioner Family; Visit Provider Nurse Practitioner Family
DX: R06.02 Shortness of breath (principal); Z95.2 Presence of prosthetic heart valve
CPT/HCPCS: 93306; Q9957; A4216; C8929

== ENCOUNTER → 2024-05-02 | Outpatient (CLI) | payer MEDICARE, OTHER, SELFPAY ==
--- NOTE | 2024-05-02 18:33 | STRESSREP ---
Stress Test Report Pharmacologic myocardial perfusion stress test. 69-year-old man with a history of chest pain Resting EKG demonstrates atrial fibrillation with a rate of 82 bpm. Resting blood pressure is 132/80 mmHg. 0.4 mg of regadenoson was infused per usual protocol followed by rapid intravenous saline flush injection. Continuous EKG monitoring was performed. The maximum heart rate was 99 bpm which was 66% of max impacted heart rate the maximum workload was 1 metabolic equivalent. At rest there were no ST or T wave changes noted to suggest ischemia and at peak infusion nonspecific ST changes were noted which did not meet the criteria for ischemia. No clinical angina is noted. The final blood pressure was 122/80 mmHg. Myocardial perfusion protocol. 14.7 mCi of technetium 99m sestamibi was injected at rest. 0.4 mg of regadenoson was infused per usual protocol. At peak infusion 44.5 mCi of technetium 99m sestamibi was injected stress images were obtained stress and rest images were reconstructed and compared in the short axis vertical long and horizontal long axis. Gated images were also obtained. Perfusion SPECT analysis: Review of the stress images demonstrate normal uptake of tracer noted in all areas of the myocardium. The resting images similar demonstrated normal uptake of tracer noted in all areas of the myocardium. No areas of reversibility are noted to suggest ischemia and no previous infarct is noted. Gated SPECT analysis: The gated ejection fraction is 56%. Conclusion: Normal pharmacologic myocardial perfusion stress test. Preserved ejection fraction.
== END | disposition home or self-care (01) ==
LOC: CVS 06:13
PROVIDERS: PCP Family Medicine; Referring Provider Nurse Practitioner Family; Visit Provider Nurse Practitioner Family
DX: R06.02 Shortness of breath (principal); I48.11 Longstanding persistent atrial fibrillation; Z95.2 Presence of prosthetic heart valve; I10 Essential (primary) hypertension
CPT/HCPCS: 78452; 93017; A9500; A4216; J2785

== ENCOUNTER → 2024-05-11 | Outpatient (CLI) | payer MEDICARE, OTHER, SELFPAY | END | disposition home or self-care (01) | PROVIDERS: PCP Family Medicine; Referring Provider Nurse Practitioner Family; Visit Provider Nurse Practitioner Family | DX: R06.02 Shortness of breath (principal); I48.11 Longstanding persistent atrial fibrillation; I35.0 Nonrheumatic aortic (valve) stenosis; Z95.2 Presence of prosthetic heart valve; I10 Essential (primary) hypertension; E78.5 Hyperlipidemia, unspecified | CPT/HCPCS: 94060; 94726; 94729 ==